=== PATIENT | male | born 1975 | race Caucasian/White ===

== ENCOUNTER 2016-08-15 14:16 | Emergency (ER) | payer MEDICAID ==
[~2016-08-15] VITALS: Wt 72.0 kg
[~2016-08-15 14:16] MED LIST: BACTDS PO; CEPH500C PO; IBUP-1542 PO; PRED50 PO
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
[2016-08-15] MEDS ORDERED: BACTDS PO (16:20)
[2016-08-15] MEDS ORDERED: CEPH-443 PO (16:20)
[2016-08-15] MEDS ORDERED: TRIMETHOPRIM/SULFAMETHOX (DS) TAB PO ONE (16:30)
[2016-08-15] MEDS ORDERED: CEPHALEXIN 500 MG CAP PO ONE (16:30)
== END 2016-08-15 16:47 | disposition home or self-care (01) ==
LOC: FTE 14:16
DX: S89.91XA Unspecified injury of right lower leg, initial encounter (principal); L03.115 Cellulitis of right lower limb; W22.8XXA Striking against or struck by other objects, initial encounter; Y92.9 Unspecified place or not applicable
CPT/HCPCS: Z7502; Z7610; 99284

== ENCOUNTER 2016-11-14 20:07 | Emergency (ER) | payer MEDICAID ==
[~2016-11-14] VITALS: Ht 172.7 cm; Wt 71.0 kg
[~2016-11-14 20:07] MED LIST changes: +CEPH-443 PO
[2016-11-14 20:18] VITALS: Ht 172.7 cm; Wt 71.0 kg
[2016-11-14] MEDS ORDERED: ONDA4TAB14 PO (21:28)
--- NOTE | 2016-11-14 23:51 | ERD ---
ER Documentation Chief Complaint Date/Time DATE: 11/14/16 TIME: 23:44 Chief Complaint diarrhea and vomiting x 3days HPI 41-year-old male complaining of vomiting and diarrhea 3 days. He had one episode of vomiting today and 5 episodes of diarrhea today. Last episode of diarrhea is about an hour ago. Both vomitus and diarrhea are nonbloody. Patient reports abdominal pain after eating, better after diarrhea. Patient is currently homeless, sleeping outside. Last time he bathes was 3 days ago. He does not have access of running water to keep his hands clean. Denies fever or chills. Denies abdominal pain at this time. Denies cough or runny nose. Denies shortness of breath. ROS All systems reviewed and are negative except as per history of present illness. Medications Home Meds Active Scripts Ondansetron (Ondansetron Odt) 4 Mg Tab.rapdis, 4 MG PO Q6H Y for NAUSEA AND/OR VOMITING, #10 TAB Prov:PAULO LÓPEZ. [employer] 11/14/16 Cephalexin* (Keflex*) 500 Mg Capsule, 500 MG PO QID for 10 Days, CAP Prov:APOLINAR MATOS DO 08/15/16 Sulfamethoxazole-Trimethoprim* (Bactrim* DS) 800-160 Mg Tab, 1 TAB PO BID for 10 Days, TAB Prov:APOLINAR MATOS DO 08/15/16 Prednisone (Prednisone) 50 Mg Tab, 50 MG PO DAILY, #5 TAB Prov:SHANTHI RICHARDS PA-C 10/18/15 Ibuprofen* (Ibuprofen*) 600 Mg Tablet, 600 MG PO Q6, #30 TAB Prov:SHANTHI RICHARDS PA-C 10/18/15 Cephalexin* (Cephalexin*) 500 Mg Capsule, 500 MG PO Q6, #28 CAP Prov:SHANTHI RICHARDS PA-C 10/18/15 Sulfamethoxazole-Trimethoprim* (Bactrim* DS) 800-160 Mg Tab, 1 TAB PO BID, #14 TAB Prov:SHANTHI RICHARDS PA-C 10/18/15 Allergies Allergies: Coded Allergies: No Known Allergy (Unverified , 11/14/16) PMhx/Soc Medical and Surgical Hx: pt denies Medical Hx History of Surgery: Yes (l. wrist) Hx Alcohol Use: No Hx Substance Use: Yes (weed, crystal meth ) Hx Tobacco Use: Yes Smoking Status: Current every day smoker Physical Exam Vitals Vital Signs Date Time Temp Pulse Resp B/P Pulse Ox O2 Delivery O2 Flow Rate FiO2 11/14/16 20:18 98.5 98 20 133/80 99 Physical Exam General: Well-developed, well-nourished, conscious and coherent, in no distress Skin: Warm and dry without rash, good texture and turgor Head: Normocephalic without evidence of trauma Eyes: Sclera and conjunctivae normal; pupils equal, round, and reactive to light; extraocular movements are intact Chest: Normal AP diameter. Good expansion without retractions. Nontender. Lungs are clear to auscultate bilaterally with good tidal volume Heart: Regular rate and rhythm. No murmur, rub, or gallops heard Abdomen: Soft and nontender without masses, guarding, or rebound. Bowel sounds are active. No hepatosplenomegaly Back: Without spinal or CVA tenderness Extremities: Full range of motion. Good strength bilaterally. No clubbing, cyanosis, or edema. Peripheral pulses are intact. Sensation intact Neuro: Alert and oriented 4, GCS 15. Cranial nerves grossly intact. Motor and sensory exams nonfocal. Moves all extremities. Speech clear. Gait normal Procedures/MDM Patient tolerated p.o. fluid challenge in the ED without vomiting. Patient is afebrile, does not have any abdominal tenderness on palpation. I doubt acute appendicitis, cholecystitis or other acute abdomen. Patient's symptoms is consistent with either viral gastroenteritis or foodborne illness. Patient does not have any active vomiting, is able to maintain by mouth fluid intake. Patient appears well, stable for discharge and outpatient management. Medical decision making shared with patient and family. Education provided to patient and family. Patient and family expressed understanding of the plan. Medications on discharge: Zofran. Follow-up: Primary care provider in 2-3 days or return to ED if worse. Departure Diagnosis: Primary Impression: Gastroenteritis Condition: Good Patient Instructions: Self-Care for Vomiting and Diarrhea Referrals: COMM[facility]ITY CLINICS YOU HAVE RECEIVED A MEDICAL SCREENING EXAM AND THE RESULTS INDICATE THAT YOU DO NOT HAVE A CONDITION THAT REQUIRES URGENT TREATMENT IN THE EMERGENCY DEPARTMENT. FURTHER EVALUATION AND TREATMENT OF YOUR CONDITION CAN WAIT UNTIL YOU ARE SEEN IN YOUR DOCTORS OFFICE WITHIN THE NEXT 1-2 DAYS. IT IS YOUR RESPONSIBILITY TO MAKE AN APPOINTMENT FOR FOLOW-UP CARE. IF YOU HAVE A PRIMARY DOCTOR --you should call your primary doctor and schedule an appointment IF YOU DO NOT HAVE A PRIMARY DOCTOR YOU CAN CALL OUR PHYSICIAN REFERRAL HOTLINE AT IF YOU CAN NOT AFFORD TO SEE A PHYSICIAN YOU CAN CHOSE FROM THE FOLLOWING [facility] [address] [facility] [address] [facility] [address] [facility] [address] [facility] [facility] [address] [facility] [facility] [address] Additional Instructions: Call your primary care doctor TOMORROW for an appointment during the next 2-3 days.See the doctor sooner or return here if your condition worsens before your appointment time. PAULO LÓPEZ NP November 14, 2016 23:51
== END 2016-11-14 22:25 | disposition left against medical advice (07) ==
LOC: FTE 20:07
DX: K52.9 Noninfective gastroenteritis and colitis, unspecified (principal); F17.210 Nicotine dependence, cigarettes, uncomplicated
CPT/HCPCS: 99283

== ENCOUNTER 2018-09-18 11:00 | Inpatient (IN) | payer OTHER ==
[~2018-09-18] VITALS: Ht 165.1 cm; Wt 73.0 kg
[2018-09-18] VITALS (30 sets, daily range): BP systolic 93–170; BP diastolic 43–109; PULSE 63–121; RESP 17–25
[2018-09-18] MEDS: SOD CHLORIDE 0.9% 1,000 ML IV SCH
[~2018-09-18 11:00] MED LIST changes: +ONDA4TAB14 PO
[2018-09-18] MEDS ORDERED: VANCOMYCIN 1 GM (PMX) 250 ML IVPB STA (11:18)
[2018-09-18] MEDS ORDERED: FENTAnyl 50 MCG/ML VIAL IV STA (11:18)
[2018-09-18] MEDS ORDERED: SODIUM CHLORIDE 0.9% 500 ML BAG IV* STA (11:18)
[2018-09-18] MEDS ORDERED: MIDAZOLAM 1 MG/ML 2 ML INJ IV STA (11:18)
[2018-09-18] MEDS ORDERED: SODIUM CHLORIDE 0.9% 1L BAG IV* STA (11:18)
[2018-09-18] MEDS ORDERED: CEFEPIME 2GM/50 ML (PMX) 50 ML IVPB STA (11:18)
[2018-09-18] MEDS ORDERED: FENTAnyl (DRIP) 1000 mcg/100mL 100 ML IV ONE (11:30)
[2018-09-18] MEDS ORDERED: MIDAZOLAM (DRIP) 50 mg/50 mL 50 ML IV ONE (11:30)
[2018-09-18] MEDS ORDERED: NORepinephrine 8MG/250 ML (PMX 250 ML IV ONE (11:30)
[2018-09-18] MEDS ORDERED: MIDAZOLAM 1 MG/ML 2 ML INJ IV ONE (12:00)
[2018-09-18] MEDS ORDERED: FENTAnyl 50 MCG/ML VIAL IV ONE (12:00)
[2018-09-18] MEDS: VECURONIUM 100 MG in DEXTROSE 5% 100 ML IV ONE ×3 (12:09)
[2018-09-18] MEDS ORDERED: PROPOFOL 100 ML IV STA (12:10)
[2018-09-18] MEDS ORDERED: PROPOFOL 100 ML ONE (12:11)
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
[2018-09-18] MEDS ORDERED: ONDANSETRON 4 MG INJ IV PRN (15:00)
[2018-09-18] MEDS: PIPER-TAZO 3.375 GM IV (PMX) 100 ML IVPB SCH (15:49)
[2018-09-18] MEDS ORDERED: ALBUTEROL 0.5% (NEB) 2.5 MG/0.5 ML AMP ONE (15:51)
[2018-09-18] MEDS ORDERED: ALBUTEROL 0.083% (NEB) 2.5 MG/3 ML AMP HHN STA ×2 (16:03→17:02)
[2018-09-18] MEDS ORDERED: METHYLPREDNISOLONE 40 MG INJ IV ONE (16:30)
[2018-09-18] MEDS ORDERED: METHYLPREDNISOLONE 125 MG INJ IV ONE (16:30)
[2018-09-18] MEDS ORDERED: ACETAMINOPHEN 650 MG SUPP PR PRN (17:30)
[2018-09-18] MEDS ORDERED: ACETAMINOPHEN 650MG/20.3ML CUP PO PRN (17:30)
[2018-09-18] MEDS ORDERED: MEPERIDINE 25 MG INJ IV PRN ×2 (17:30)
[2018-09-18] MEDS ORDERED: OCULAR LUBRICANT 3.5 GM OPH OINT BOTH EYES SCH (18:00)
[2018-09-19] VITALS (81 sets, daily range): BP systolic 84–164; BP diastolic 53–122; PULSE 35–83; RESP 18–23
[2018-09-19] MEDS: PROPOFOL 100 ML IV SCH (00:30)
[2018-09-19] MEDS: PIPER-TAZO 3.375 GM IV (PMX) 100 ML IVPB SCH ×4 (00:39→21:32)
[2018-09-19] MEDS ORDERED: INSULIN HUMAN REGULAR 100 UNIT in SOD CHLORIDE 0.9% 99 ML IV SCH (00:45)
[2018-09-19] MEDS: ACCU-CHEK XX SCH ×11 (01:00→22:00)
[2018-09-19] MEDS: OCULAR LUBRICANT 3.5 GM OPH OINT BOTH EYES SCH ×4 (02:21→23:35)
[2018-09-19] MEDS: ARTIFICIAL TEARS 15 ML OPH BOTH EYES SCH ×6 (02:21→23:35)
[2018-09-19] MEDS ORDERED: VECURONIUM 100 MG in DEXTROSE 5% 100 ML IV SCH (03:00)
[2018-09-19] MEDS: SOD CHLORIDE 0.9% 1,000 ML IV SCH ×2 (03:30→15:37)
[2018-09-19] MEDS: MIDAZOLAM (DRIP) 50 mg/50 mL 50 ML IV SCH ×2 (04:34→15:34)
[2018-09-19] MEDS: PANTOPRAZOLE 40 MG INJ IV SCH (05:28)
--- NOTE | 2018-09-19 09:20 | PN ---
Date/Time of Note Date/Time of Note DATE: 09/19/18 TIME: 09:18 Assessment/Plan VTE Prophylaxis Risk score (from Ns)>0 risk: 6 SCD applied (from Ns): Yes Pharmacological prophylaxis: heparin Lines/Catheters IV Catheter Type (from Nrsg): Central Line Central line still needed: Yes Urinary Cath still in place: Yes Reason Cath still needed: other (indicate) Assessment/Plan Hospital Course Subjective: remains intubated and sedated on hypothermia protocol family members have been contacted and are enroute to see patient Objective : GENERAL: Intubated and comfortably sedated, cooling blanket HEENT: JENNIFER, Intubated, Vent settings noted , LUNGS: diffusely diminished HEART: S1, S2. No murmur, gallops or rubs. ABDOMEN: Soft, non distended, Normoactive bowel sounds. GENITOURINARY: Normal male external genitalia, Pearl to bedside drainage EXTREMITIES: no edema, no movt noted at this time NEUROLOGIC: The patient is currently obtunded SKIN: Otherwise, unremarkable. assessment and plan: 43-year-old male who was found unresponsive on the street brought in by EMS as a Ti Feng currently managed as follows: 1. Acute toxic metabolic encephalopathy rule out. Ischemic brain disease 2. Accidental overdose 3. Acute respiratory failure secondary to #2 4. Multi-substance abuse 5. Systemic inflammatory response syndrome secondary to #1 6. Status post cardiac arrest with return of spontaneous circulation after resuscitation 7. Severe rhabdomyolysis 8. Cardiogenic shock with lactic acidosis 9. High probability of aspiration pneumonia Plan: Complete hypothermia protocol and proceed to rewarming as indicated Continue empiric antibiotics Continue gentle hydration and tracking of creatinine kinase levels Overall prognosis is grim/guarded Further interventions per clinical course Prophylaxis: heparin/Protonix Critical care time greater than 40 minutes Result Diagram: 09/19/18 0400 09/19/18 0400 Results 24hrs Laboratory Tests Test 09/18/18 11:05 09/18/18 11:18 09/18/18 12:30 09/18/18 13:48 White Blood 14.2 H Count Red Blood Count 5.65 Hemoglobin 13.0 L Hematocrit 43.6 Mean 77.2 L Corpuscular Volume Mean 23.0 L Corpuscular Hemoglobin Mean 29.8 L Corpuscular Hemoglobin Conc ent Red Cell 13.4 Distribution Width Platelet Count 302 Mean Platelet 11.7 H Volume Immature 0.500 H Granulocytes % Neutrophils % 44.6 Lymphocytes % 39.4 Monocytes % 7.1 Eosinophils % 7.5 H Basophils % 0.9 Nucleated Red 0.0 Blood Cells % Immature 0.070 H Granulocytes # Neutrophils # 6.3 Lymphocytes # 5.6 H Monocytes # 1.0 H Eosinophils # 1.1 H Basophils # 0.1 Nucleated Red 0.0 Blood Cells # Prothrombin 12.9 Time Prothrombin 1.0 Time Ratio INR 0.96 International Normalized Rati o Activated 29.8 Partial Thrombo plast Time Sodium Level 141 Potassium Level 3.9 Chloride Level 101 Carbon Dioxide 17 L Level Anion Gap 23 H Blood Urea 14 Nitrogen Creatinine 1.12 Est Glomerular > 60 Filtrat Rate mL/min Glucose Level 292 H Calcium Level 8.8 Phosphorus 9.1 H Level Magnesium Level 2.5 Total Bilirubin 0.3 Direct 0.00 Bilirubin Indirect 0.3 Bilirubin Aspartate Amino 77 H Transf (AST/SGO T) Alanine 32 Aminotransferas e (ALT/SGPT) Alkaline 67 Phosphatase Troponin I 0.025 Total Protein 7.2 Albumin 4.1 Globulin 3.10 Albumin/Globuli 1.32 n Ratio Lipase 52 Ethyl Alcohol < 10.0 H Level Blood Gas Blood Specimen arterial Source Arterial Blood 09/18/2018 1:00 Date Drawn :15 PM Arterial Blood 7.107 *L pH (Temp corrected ) Arterial Blood 96.4 *H pCO2 (Temp correct) Arterial Blood 62.8 L pO2 (Temp corrected ) Arterial Blood 29.7 H HCO3 Arterial Blood -2.6 Base Excess Arterial Blood 83.2 L Oxygen Saturati on George Test ACCEPTAB Arterial Blood Right Radial Gas Puncture Site Arterial 0.3 Blood Carboxyhe moglobin Arterial Blood 0.6 Methemoglobin Blood Gas A-a 553.8 H O2 Differential Oxyhemoglobin 82.5 L Percent Blood Gas 37.0 Temperature Blood Gas 14.0 Respiration Rate Blood Gas 20 Actual Respiration Rat e Blood Gas VENT - AC Modality FiO2 100.0 Blood Gas Tidal 500.0 Volume Blood Gas Low 5.0 PEEP Setting Blood Gas DR. PATRICIO Critical Value Read Back Blood Gas RT Notified Whom Blood Gas 09/18/2018 1:19 Notified Time :03 PM Urine Color YELLOW Urine Clarity SLIGHTLY CLOUD Y A Urine pH 6.0 Urine Specific 1.013 [place] Urine Ketones NEGATIVE Urine Nitrite NEGATIVE Urine Bilirubin NEGATIVE Urine NEGATIVE Urobilinogen Urine Leukocyte NEGATIVE Esterase Urine 8 H Microscopic RBC Urine 5 Microscopic WBC Urine Bacteria FEW A Urine Mucus FEW A Urine 2+ H Hemoglobin Urine Glucose 3+ H Urine Total 2+ H Protein Urine Opiates Positive Screen Urine Negative Barbiturates Urine POSITIVE Amphetamines Screen Urine Positive Benzodiazepines Screen Urine Cocaine Negative Screen Urine Positive Cannabinoids Bedside Glucose 89 Test 09/18/18 13:51 09/18/18 15:05 09/18/18 16:17 09/18/18 16:20 Lactic Acid 1.3 1.5 Level Bedside Glucose 79 105 Sodium Level 143 Potassium Level 4.8 Chloride Level 104 Carbon Dioxide 29 # Level Anion Gap 10 # Blood Urea 16 Nitrogen Creatinine 0.79 Est Glomerular > 60 Filtrat Rate mL/min Glucose Level 113 # Calcium Level 8.1 L Creatine Kinase 1102 H Creatine Kinase 1.2 Index Creatinine 13.00 H Kinase MB (Mass) Troponin I 0.049 Test 09/18/18 17:15 09/18/18 18:03 09/18/18 19:03 09/18/18 20:22 Blood Gas Blood arterial Specimen Source Arterial Blood 09/18/2018 6:00: Date Drawn 41 PM Arterial Blood 7.158 *L pH (Temp corrected ) Arterial Blood 84.6 *H pCO2 (Temp correct) Arterial Blood 32.7 *L pO2 (Temp corrected ) Arterial Blood 31.0 H HCO3 Arterial Blood -1.9 Base Excess Arterial Blood 68.2 L Oxygen Saturati on George Test ACCEPTAB Arterial Blood Right Radial Gas Puncture Site Arterial 0 Blood Carboxyhe moglobin Arterial Blood 0.3 Methemoglobin Blood Gas A-a 604.9 H O2 Differential Oxyhemoglobin 68.0 L Percent Blood Gas 33.1 Temperature Blood Gas 22.0 Respiration Rate Blood Gas 26 Actual Respiration Rat e Blood Gas VENT - AC Modality FiO2 100.0 Blood Gas Tidal 550.0 Volume Blood Gas Low 5.0 PEEP Setting Blood Gas Critical Value Read Back Blood Gas RT Notified Whom Blood Gas 09/18/2018 6:06: Notified Time 48 PM Lactic Acid 1.2 Level Bedside Glucose 91 88 Test 09/18/18 22:54 09/18/18 23:15 09/18/18 23:46 09/19/18 02:00 Sodium Level 143 Potassium Level 3.8 Chloride Level 104 Carbon Dioxide 27 Level Anion Gap 12 Blood Urea 15 Nitrogen Creatinine 0.62 Est Glomerular > 60 Filtrat Rate mL/min Glucose Level 145 Calcium Level 8.5 Creatine Kinase 1336 H Creatine Kinase 1.7 Index Creatinine 22.10 H Kinase MB (Mass) Troponin I 0.028 Blood Gas Blood Specimen arterial Source Arterial Blood 09/18/2018 11:0 Date Drawn 5:59 PM Arterial Blood 7.311 L pH (Temp corrected ) Arterial Blood 46.2 H pCO2 (Temp correct) Arterial Blood 541.6 H pO2 (Temp corrected ) Arterial Blood 24.0 HCO3 Arterial Blood -4.0 L Base Excess Arterial Blood 99.7 H Oxygen Saturati on George Test ACCEPTAB Arterial Blood Right Radial Gas Puncture Site Arterial 0.3 Blood Carboxyhe moglobin Arterial Blood 0.4 Methemoglobin Blood Gas A-a 134.8 H O2 Differential Oxyhemoglobin 99.0 Percent Blood Gas 32.9 Temperature Blood Gas 22.0 Respiration Rate Blood Gas 22 Actual Respiration Rat e Blood Gas VENT - AC Modality FiO2 100.0 Blood Gas Tidal 550.0 Volume Blood Gas Low 5.0 PEEP Setting Blood Gas JULIA, B Critical Value Read Back Blood Gas Notified Whom Blood Gas 09/18/2018 11:1 Notified Time 2:01 PM Bedside Glucose 114 Prothrombin 12.8 Time Prothrombin 1.0 Time Ratio INR 0.95 International Normalized Rati o Activated 31.7 Partial Thrombo plast Time Fibrinogen 383.0 Amylase Level 52 Lipase 12 L Test 09/19/18 02:14 09/19/18 03:03 09/19/18 04:00 09/19/18 05:15 Bedside Glucose 127 113 White Blood 15.4 H Count Red Blood Count 5.93 Hemoglobin 13.4 L Hematocrit 44.1 Mean 74.4 L Corpuscular Volume Mean 22.6 L Corpuscular Hemoglobin Mean 30.4 L Corpuscular Hemoglobin Conc ent Red Cell 13.9 Distribution Width Platelet Count 279 Mean Platelet 10.8 H Volume Immature 0.300 Granulocytes % Neutrophils % 92.4 H Lymphocytes % 4.3 L Monocytes % 2.9 Eosinophils % 0.0 Basophils % 0.1 Nucleated Red 0.0 Blood Cells % Immature 0.040 H Granulocytes # Neutrophils # 14.2 H Lymphocytes # 0.7 L Monocytes # 0.5 Eosinophils # 0.0 Basophils # 0.0 Nucleated Red 0.0 Blood Cells # Sodium Level 144 Potassium Level 4.1 Chloride Level 107 Carbon Dioxide 25 Level Anion Gap 12 Blood Urea 14 Nitrogen Creatinine 0.61 Est Glomerular > 60 Filtrat Rate mL/min Glucose Level 145 Lactic Acid 3.8 *H Level Calcium Level 8.4 Phosphorus 3.5 # Level Magnesium Level 2.3 Troponin I 0.014 Blood Gas Blood Specimen arterial Source Arterial Blood 09/19/2018 4:48 Date Drawn :01 AM Arterial Blood 7.360 pH (Temp corrected ) Arterial Blood 42.9 pCO2 (Temp correct) Arterial Blood 71.0 L pO2 (Temp corrected ) Arterial Blood 24.9 HCO3 Arterial Blood -2.2 Base Excess Arterial Blood 97.1 Oxygen Saturati on George Test ACCEPTAB Arterial Blood Right Radial Gas Puncture Site Arterial 0.3 Blood Carboxyhe moglobin Arterial Blood 0.2 Methemoglobin Blood Gas A-a 169.0 H O2 Differential Oxyhemoglobin 96.6 Percent Blood Gas 32.5 Temperature Blood Gas 22.0 Respiration Rate Blood Gas 22 Actual Respiration Rat e Blood Gas VENT - AC Modality FiO2 40.0 Blood Gas Tidal 550.0 Volume Blood Gas Low 5.0 PEEP Setting Blood Gas 27.0 Inspiratory Pressure Blood Gas Colin HODGE RN Critical Value Read Back Blood Gas MM Notified Whom Blood Gas 09/19/2018 4:53 Notified Time :58 AM Test 09/19/18 06:04 Bedside Glucose 119 Exam/Review of Systems Exam Vitals Vital Signs Date Temp Pulse Resp B/P (MAP) Pulse Ox O2 O2 Flow FiO2 Time Delivery Rate 09/19/18 43 08:00 09/19/18 91.9 22 150/95 100 08:00 (113) 09/19/18 40 05:11 09/18/18 Mechanical 14:00 Ventilator Intake and Output 09/18/18 09/18/18 09/19/18 1515:00 23:00 07:00 IntakeIntake Total 2730 ml 985.934 ml OutputOutput Total 1500 ml 1849 ml BalanceBalance 2730 ml -1500 ml -863.066 ml Results Results 24hrs Laboratory Tests Test 09/18/18 11:05 09/18/18 11:18 09/18/18 12:30 09/18/18 13:48 White Blood 14.2 H Count Red Blood Count 5.65 Hemoglobin 13.0 L Hematocrit 43.6 Mean 77.2 L Corpuscular Volume Mean 23.0 L Corpuscular Hemoglobin Mean 29.8 L Corpuscular Hemoglobin Conc ent Red Cell 13.4 Distribution Width Platelet Count 302 Mean Platelet 11.7 H Volume Immature 0.500 H Granulocytes % Neutrophils % 44.6 Lymphocytes % 39.4 Monocytes % 7.1 Eosinophils % 7.5 H Basophils % 0.9 Nucleated Red 0.0 Blood Cells % Immature 0.070 H Granulocytes # Neutrophils # 6.3 Lymphocytes # 5.6 H Monocytes # 1.0 H Eosinophils # 1.1 H Basophils # 0.1 Nucleated Red 0.0 Blood Cells # Prothrombin 12.9 Time Prothrombin 1.0 Time Ratio INR 0.96 International Normalized Rati o Activated 29.8 Partial Thrombo plast Time Sodium Level 141 Potassium Level 3.9 Chloride Level 101 Carbon Dioxide 17 L Level Anion Gap 23 H Blood Urea 14 Nitrogen Creatinine 1.12 Est Glomerular > 60 Filtrat Rate mL/min Glucose Level 292 H Calcium Level 8.8 Phosphorus 9.1 H Level Magnesium Level 2.5 Total Bilirubin 0.3 Direct 0.00 Bilirubin Indirect 0.3 Bilirubin Aspartate Amino 77 H Transf (AST/SGO T) Alanine 32 Aminotransferas e (ALT/SGPT) Alkaline 67 Phosphatase Troponin I 0.025 Total Protein 7.2 Albumin 4.1 Globulin 3.10 Albumin/Globuli 1.32 n Ratio Lipase 52 Ethyl Alcohol < 10.0 H Level Blood Gas Blood Specimen arterial Source Arterial Blood 09/18/2018 1:00 Date Drawn :15 PM Arterial Blood 7.107 *L pH (Temp corrected ) Arterial Blood 96.4 *H pCO2 (Temp correct) Arterial Blood 62.8 L pO2 (Temp corrected ) Arterial Blood 29.7 H HCO3 Arterial Blood -2.6 Base Excess Arterial Blood 83.2 L Oxygen Saturati on George Test ACCEPTAB Arterial Blood Right Radial Gas Puncture Site Arterial 0.3 Blood Carboxyhe moglobin Arterial Blood 0.6 Methemoglobin Blood Gas A-a 553.8 H O2 Differential Oxyhemoglobin 82.5 L Percent Blood Gas 37.0 Temperature Blood Gas 14.0 Respiration Rate Blood Gas 20 Actual Respiration Rat e Blood Gas VENT - AC Modality FiO2 100.0 Blood Gas Tidal 500.0 Volume Blood Gas Low 5.0 PEEP Setting Blood Gas DR. PATRICIO Critical Value Read Back Blood Gas RT Notified Whom Blood Gas 09/18/2018 1:19 Notified Time :03 PM Urine Color YELLOW Urine Clarity SLIGHTLY CLOUD Y A Urine pH 6.0 Urine Specific 1.013 [place] Urine Ketones NEGATIVE Urine Nitrite NEGATIVE Urine Bilirubin NEGATIVE Urine NEGATIVE Urobilinogen Urine Leukocyte NEGATIVE Esterase Urine 8 H Microscopic RBC Urine 5 Microscopic WBC Urine Bacteria FEW A Urine Mucus FEW A Urine 2+ H Hemoglobin Urine Glucose 3+ H Urine Total 2+ H Protein Urine Opiates Positive Screen Urine Negative Barbiturates Urine POSITIVE Amphetamines Screen Urine Positive Benzodiazepines Screen Urine Cocaine Negative Screen Urine Positive Cannabinoids Bedside Glucose 89 Test 09/18/18 13:51 09/18/18 15:05 09/18/18 16:17 09/18/18 16:20 Lactic Acid 1.3 1.5 Level Bedside Glucose 79 105 Sodium Level 143 Potassium Level 4.8 Chloride Level 104 Carbon Dioxide 29 # Level Anion Gap 10 # Blood Urea 16 Nitrogen Creatinine 0.79 Est Glomerular > 60 Filtrat Rate mL/min Glucose Level 113 # Calcium Level 8.1 L Creatine Kinase 1102 H Creatine Kinase 1.2 Index Creatinine 13.00 H Kinase MB (Mass) Troponin I 0.049 Test 09/18/18 17:15 09/18/18 18:03 09/18/18 19:03 09/18/18 20:22 Blood Gas Blood arterial Specimen Source Arterial Blood 09/18/2018 6:00: Date Drawn 41 PM Arterial Blood 7.158 *L pH (Temp corrected ) Arterial Blood 84.6 *H pCO2 (Temp correct) Arterial Blood 32.7 *L pO2 (Temp corrected ) Arterial Blood 31.0 H HCO3 Arterial Blood -1.9 Base Excess Arterial Blood 68.2 L Oxygen Saturati on [place] Test ACCEPTAB Arterial Blood Right Radial Gas Puncture Site Arterial 0 Blood Carboxyhe moglobin Arterial Blood 0.3 Methemoglobin Blood Gas A-a 604.9 H O2 Differential Oxyhemoglobin 68.0 L Percent Blood Gas 33.1 Temperature Blood Gas 22.0 Respiration Rate Blood Gas 26 Actual Respiration Rat e Blood Gas VENT - AC Modality FiO2 100.0 Blood Gas Tidal 550.0 Volume Blood Gas Low 5.0 PEEP Setting Blood Gas Critical Value Read Back Blood Gas RT Notified Whom Blood Gas 09/18/2018 6:06: Notified Time 48 PM Lactic Acid 1.2 Level Bedside Glucose 91 88 Test 09/18/18 22:54 09/18/18 23:15 3/28/19 23:46 09/19/18 02:00 Sodium Level 143 Potassium Level 3.8 Chloride Level 104 Carbon Dioxide 27 Level Anion Gap 12 Blood Urea 15 Nitrogen Creatinine 0.62 Est Glomerular > 60 Filtrat Rate mL/min Glucose Level 145 Calcium Level 8.5 Creatine Kinase 1336 H Creatine Kinase 1.7 Index Creatinine 22.10 H Kinase MB (Mass) Troponin I 0.028 Blood Gas Blood Specimen arterial Source Arterial Blood 09/18/2018 11:0 Date Drawn 5:59 PM Arterial Blood 7.311 L pH (Temp corrected ) Arterial Blood 46.2 H pCO2 (Temp correct) Arterial Blood 541.6 H pO2 (Temp corrected ) Arterial Blood 24.0 HCO3 Arterial Blood -4.0 L Base Excess Arterial Blood 99.7 H Oxygen Saturati on George Test ACCEPTAB Arterial Blood Right Radial Gas Puncture Site Arterial 0.3 Blood Carboxyhe moglobin Arterial Blood 0.4 Methemoglobin Blood Gas A-a 134.8 H O2 Differential Oxyhemoglobin 99.0 Percent Blood Gas 32.9 Temperature Blood Gas 22.0 Respiration Rate Blood Gas 22 Actual Respiration Rat e Blood Gas VENT - AC Modality FiO2 100.0 Blood Gas Tidal 550.0 Volume Blood Gas Low 5.0 PEEP Setting Blood Gas JULIA, B Critical Value Read Back Blood Gas Notified Whom Blood Gas 09/18/2018 11:1 Notified Time 2:01 PM Bedside Glucose 114 Prothrombin 12.8 Time Prothrombin 1.0 Time Ratio INR 0.95 International Normalized Rati o Activated 31.7 Partial Thrombo plast Time Fibrinogen 383.0 Amylase Level 52 Lipase 12 L Test 09/19/18 02:14 09/19/18 03:03 09/19/18 04:00 09/19/18 05:15 Bedside Glucose 127 113 White Blood 15.4 H Count Red Blood Count 5.93 Hemoglobin 13.4 L Hematocrit 44.1 Mean 74.4 L Corpuscular Volume Mean 22.6 L Corpuscular Hemoglobin Mean 30.4 L Corpuscular Hemoglobin Conc ent Red Cell 13.9 Distribution Width Platelet Count 279 Mean Platelet 10.8 H Volume Immature 0.300 Granulocytes % Neutrophils % 92.4 H Lymphocytes % 4.3 L Monocytes % 2.9 Eosinophils % 0.0 Basophils % 0.1 Nucleated Red 0.0 Blood Cells % Immature 0.040 H Granulocytes # Neutrophils # 14.2 H Lymphocytes # 0.7 L Monocytes # 0.5 Eosinophils # 0.0 Basophils # 0.0 Nucleated Red 0.0 Blood Cells # Sodium Level 144 Potassium Level 4.1 Chloride Level 107 Carbon Dioxide 25 Level Anion Gap 12 Blood Urea 14 Nitrogen Creatinine 0.61 Est Glomerular > 60 Filtrat Rate mL/min Glucose Level 145 Lactic Acid 3.8 *H Level Calcium Level 8.4 Phosphorus 3.5 # Level Magnesium Level 2.3 Troponin I 0.014 Blood Gas Blood Specimen arterial Source Arterial Blood 09/19/2018 4:48 Date Drawn :01 AM Arterial Blood 7.360 pH (Temp corrected ) Arterial Blood 42.9 pCO2 (Temp correct) Arterial Blood 71.0 L pO2 (Temp corrected ) Arterial Blood 24.9 HCO3 Arterial Blood -2.2 Base Excess Arterial Blood 97.1 Oxygen Saturati on George Test ACCEPTAB Arterial Blood Right Radial Gas Puncture Site Arterial 0.3 Blood Carboxyhe moglobin Arterial Blood 0.2 Methemoglobin Blood Gas A-a 169.0 H O2 Differential Oxyhemoglobin 96.6 Percent Blood Gas 32.5 Temperature Blood Gas 22.0 Respiration Rate Blood Gas 22 Actual Respiration Rat e Blood Gas VENT - AC Modality FiO2 40.0 Blood Gas Tidal 550.0 Volume Blood Gas Low 5.0 PEEP Setting Blood Gas 27.0 Inspiratory Pressure Blood Gas Colin HODGE RN Critical Value Read Back Blood Gas MM Notified Whom Blood Gas 09/19/2018 4:53 Notified Time :58 AM Test 09/19/18 06:04 Bedside Glucose 119 Medications Medication Current Medications Norepinephrine 250 ml @ 7.5 mls/hr PER PROTOCOL ONCE IV ; Start 09/18/18 at 11:30; Stop 09/19/18 at 20:49 Fentanyl 100 ml @ 2.5 mls/hr PER PROTOCOL ONCE IV Last administered on 09/18/18at 12:11; Admin Dose 3 MLS/HR; Start 09/18/18 at 11:30; Stop 09/20/18 at 03:29 Sodium Chloride 1,000 ml @ 80 mls/hr [id number] IV Last administered on 09/18/18at 00:00; Admin Dose 80 MLS/HR; Start 09/18/18 at 15:00 Ondansetron HCl (Zofran Inj) 4 mg Q6H PRN IV NAUSEA AND/OR VOMITING; Start 09/18/18 at 15:00 Pantoprazole (Protonix Iv) 40 mg DAILY@06 IV Last administered on 09/19/18at 05 :28; Admin Dose 40 MG; Start 09/19/18 at 06:00 Piperacillin Sod/ Tazobactam Sod 100 ml @ 200 mls/hr Q8 IVPB Last administered on 09/19/18at 05:28; Admin Dose 200 MLS/HR; Start 09/18/18 at 14:44 Acetaminophen (Tylenol Supp) 650 mg Q4H PRN GA TEMP > 37C Last administered on 09/18/18at 17:43; Admin Dose 650 MG; Start 09/18/18 at 17:30 Acetaminophen (Tylenol Liquid) 650 mg Q4H PRN PO TEMP > 37C; Start 09/18/18 at 17:30 Acetaminophen (Tylenol Supp) 500 mg Q6H GA ; Start 09/19/18 at 17:30 Acetaminophen (Tylenol Liquid) 500 mg Q6H PO ; Start 09/19/18 at 17:30 Meperidine HCl (Demerol) 12.5 mg Q4H PRN IV POST OPERATIVE SHIVERING; Start 09/18/18 at 17:30 Meperidine HCl (Demerol) 25 mg Q4H PRN IV POST OPERATIVE SHIVERING Last administered on 09/18/18at 18:26; Admin Dose 25 MG; Start 09/18/18 at 17:30 Eye Lubricant (Artificial Tears Oph) 2 drop Q6 BOTH EYES Last administered on 09/19/18at 05:27; Admin Dose 2 DROP; Start 09/18/18 at 18:00 Propofol 100 ml @ 2.181 mls/ hr TITRATE IV Last administered on 09/19/18at 00:30; Admin Dose 8.724 MLS/HR; Start 09/18/18 at 23:30 Insulin Human Regular 100 unit/ Sodium Chloride 100 ml @ 0 mls/hr PER PROTOCOL IV ; Start 09/19/18 at 00:45 Miscellaneous Information (* Miscellaneous Pharmacy Order) Treatment of Hypoglycemia: 1.BG 51... Per protocol XX ; Start 09/19/18 at 00:00 Dextrose (D50w Syringe) 25 ml Q15M PRN IV .DECREASED GLUCOSE; Start 09/19/18 at 00:00 Dextrose (D50w Syringe) 50 ml Q15M PRN IV .DECREASED GLUCOSE; Start 09/19/18 at 00:00 Eye Lubricant (Akwa Oint) 1 applic Q6 BOTH EYES Last administered on 09/19/18at 02:21; Admin Dose 1 APPLIC; Start 09/19/18 at 00:43 Vecuronium [place] 100 mg/ Dextrose 100 ml @ 0 mls/hr TITRATE IV Last a dministered on 09/19/18at 03:00; Admin Dose 3.6 MLS/HR; Start 09/19/18 at 03:00 Midazolam HCl 50 ml @ 1 mls/hr TITRATE IV Last administered on 09/19/18at 04:34; Admin Dose 10 MLS/HR; Start 09/19/18 at 04:30 Diagnostic Test (Pha) (Accu-Chek) 1 ea Q4H XX ; Start 09/19/18 at 10:00 REBEKAH DUMONT Sep 19, 2018 09:20
[2018-09-19] MEDS: FENTAnyl (DRIP) 1000 mcg/100mL 100 ML IV SCH (12:00)
--- NOTE | 2018-09-19 12:01 | CONS ---
Assessment/Plan Assessment/Plan Hospital Course 43 yo M with hx of polysubstance abuse who presents comatose following a cardiac arrest... for which neurology is consulted. TTM was initiated. The pt is currently at goal temp. His prognosis is guarded. CTH is unrevealing. P: Ok to defer additional neuroimaging for now TTM and other medical management per primary Will follow clinically, to recommend neurologic studies, as necessary Consultation Date/Type/Reason Admit Date/Time Sep 18, 2018 at 12:38 Type of Consult Neurology Reason for Consultation coma s/p cardiac arrest Requesting Provider: REBEKAH DUMONT Date/Time of Note DATE: 09/19/18 TIME: 12:01 Hx of Present Illness The pt is currently unable to contribute a hx. TTM was initiated ~ 1800 on 09/18. He is currently at goal. He remains intubated on versed, fentanyl and vecuronium gtts. It is elsewhere noted: HPI Unknown age gentleman who presents to the emergency room with cardiac arrest. Report from EMS as the patient is a known drug abuser. He was found down in the street without evidence of trauma. The patient had PEA arrest unresponsive to ACLS, 2 rounds of epinephrine. Patient had no ventricular fibrillation. The patient had intubation in the field, return of spontaneous circulation. Accu- Chek in the field was normal. Patient arrives obtunded, intubated with pulses. Remainder of HPI is limited. Subjective hx not possible: pt non-verbal, pt critical, pt critical status Exam/Review of Systems Exam Vitals Vital Signs Date Temp Pulse Resp B/P (MAP) Pulse Ox O2 O2 Flow FiO2 Time Delivery Rate 09/19/18 40 11:22 09/19/18 46 22 100 11:15 09/19/18 91.9 150/95 08:00 (113) 09/18/18 Mechanical 14:00 Ventilator Intake and Output 09/18/18 09/18/18 09/19/18 1515:00 23:00 07:00 IntakeIntake Total 2730 ml 985.934 ml OutputOutput Total 1500 ml 1849 ml BalanceBalance 2730 ml -1500 ml -863.066 ml Exam PE: Gen Appearance: No Apparent Distress HEENT: Intubated Cardiovascular: SB on telemetry ( HR 40s) Abdomen: Soft; cooling pads placed on chest Extremities: Dry NE: The patient was comatose and nonverbal. Cranial nerve examination was limited by mental status. Pupils were equal and reactive to light. There was no afferent pupillary defect. Funduscopic examination was limited. Face was grossly symmetric, w/ present corneal and cough reflexes. Tone was normal. Muscle bulk was normal. The pt was shivering. The patient did not withdrew to noxious stimulation x 4. Coordination and gait testing was limited by mental status. Arm and leg reflexes were absent. Boyle's sign was absent. Plantar responses were mute. Results Result Diagram: 09/19/18 1054 09/19/18 1054 Results 24hrs Laboratory Tests Test 09/18/18 12:30 09/18/18 13:48 09/18/18 13:51 09/18/18 15:05 Urine Color YELLOW Urine Clarity SLIGHTLY CLOUDY A Urine pH 6.0 Urine Specific 1.013 [place] Urine Ketones NEGATIVE Urine Nitrite NEGATIVE Urine Bilirubin NEGATIVE Urine NEGATIVE Urobilinogen Urine Leukocyte NEGATIVE Esterase Urine 8 H Microscopic RBC Urine 5 Microscopic WBC Urine Bacteria FEW A Urine Mucus FEW A Urine 2+ H Hemoglobin Urine Glucose 3+ H Urine Total 2+ H Protein Urine Opiates Positive Screen Urine Negative Barbiturates Urine POSITIVE Amphetamines Screen Urine Positive Benzodiazepines Screen Urine Cocaine Negative Screen Urine Positive Cannabinoids Bedside Glucose 89 79 Lactic Acid 1.3 Level Test 09/18/18 16:17 09/18/18 16:20 09/18/18 17:15 09/18/18 18:03 Bedside Glucose 105 Sodium Level 143 Potassium Level 4.8 Chloride Level 104 Carbon Dioxide 29 # Level Anion Gap 10 # Blood Urea 16 Nitrogen Creatinine 0.79 Est Glomerular > 60 Filtrat Rate mL/min Glucose Level 113 # Lactic Acid 1.5 1.2 Level Calcium Level 8.1 L Creatine Kinase 1102 H Creatine Kinase 1.2 Index Creatinine 13.00 H Kinase MB (Mass) Troponin I 0.049 Blood Gas Blood Specimen arterial Source Arterial Blood 09/18/2018 6:00 Date Drawn :41 PM Arterial Blood 7.158 *L pH (Temp corrected ) Arterial Blood 84.6 *H pCO2 (Temp correct) Arterial Blood 32.7 *L pO2 (Temp corrected ) Arterial Blood 31.0 H HCO3 Arterial Blood -1.9 Base Excess Arterial Blood 68.2 L Oxygen Saturati on George Test ACCEPTAB Arterial Blood Right Radial Gas Puncture Site Arterial 0 Blood Carboxyhe moglobin Arterial Blood 0.3 Methemoglobin Blood Gas A-a 604.9 H O2 Differential Oxyhemoglobin 68.0 L Percent Blood Gas 33.1 Temperature Blood Gas 22.0 Respiration Rate Blood Gas 26 Actual Respiration Rat e Blood Gas VENT - AC Modality FiO2 100.0 Blood Gas Tidal 550.0 Volume Blood Gas Low 5.0 PEEP Setting Blood Gas Critical Value Read Back Blood Gas RT Notified Whom Blood Gas 09/18/2018 6:06 Notified Time :48 PM Test 09/18/18 19:03 09/18/18 20:22 09/18/18 22:54 09/18/18 23:15 Bedside Glucose 91 88 Sodium Level 143 Potassium Level 3.8 Chloride Level 104 Carbon Dioxide 27 Level Anion Gap 12 Blood Urea 15 Nitrogen Creatinine 0.62 Est Glomerular > 60 Filtrat Rate mL/min Glucose Level 145 Calcium Level 8.5 Creatine Kinase 1336 H Creatine Kinase 1.7 Index Creatinine 22.10 H Kinase MB (Mass) Troponin I 0.028 Blood Gas Blood Specimen arterial Source Arterial Blood 09/18/2018 11:0 Date Drawn 5:59 PM Arterial Blood 7.311 L pH (Temp corrected ) Arterial Blood 46.2 H pCO2 (Temp correct) Arterial Blood 541.6 H pO2 (Temp corrected ) Arterial Blood 24.0 HCO3 Arterial Blood -4.0 L Base Excess Arterial Blood 99.7 H Oxygen Saturati on George Test ACCEPTAB Arterial Blood Right Radial Gas Puncture Site Arterial 0.3 Blood Carboxyhe moglobin Arterial Blood 0.4 Methemoglobin Blood Gas A-a 134.8 H O2 Differential Oxyhemoglobin 99.0 Percent Blood Gas 32.9 Temperature Blood Gas 22.0 Respiration Rate Blood Gas 22 Actual Respiration Rat e Blood Gas VENT - AC Modality FiO2 100.0 Blood Gas Tidal 550.0 Volume Blood Gas Low 5.0 PEEP Setting Blood Gas JULIA, Azalia MACE Critical Value Read Back Blood Gas Notified Whom Blood Gas 09/18/2018 11:1 Notified Time 2:01 PM Test 09/18/18 23:46 09/19/18 02:00 09/19/18 02:14 09/19/18 03:03 Bedside Glucose 114 127 113 Prothrombin 12.8 Time Prothrombin 1.0 Time Ratio INR 0.95 International Normalized Rati o Activated 31.7 Partial Thrombo plast Time Fibrinogen 383.0 Amylase Level 52 Lipase 12 L Test 09/19/18 04:00 09/19/18 05:15 09/19/18 06:04 09/19/18 09:52 White Blood 15.4 H Count Red Blood Count 5.93 Hemoglobin 13.4 L Hematocrit 44.1 Mean 74.4 L Corpuscular Volume Mean 22.6 L Corpuscular Hemoglobin Mean 30.4 L Corpuscular Hemoglobin Conc ent Red Cell 13.9 Distribution Width Platelet Count 279 Mean Platelet 10.8 H Volume Immature 0.300 Granulocytes % Neutrophils % 92.4 H Lymphocytes % 4.3 L Monocytes % 2.9 Eosinophils % 0.0 Basophils % 0.1 Nucleated Red 0.0 Blood Cells % Immature 0.040 H Granulocytes # Neutrophils # 14.2 H Lymphocytes # 0.7 L Monocytes # 0.5 Eosinophils # 0.0 Basophils # 0.0 Nucleated Red 0.0 Blood Cells # Sodium Level 144 Potassium Level 4.1 Chloride Level 107 Carbon Dioxide 25 Level Anion Gap 12 Blood Urea 14 Nitrogen Creatinine 0.61 Est Glomerular > 60 Filtrat Rate mL/min Glucose Level 145 Lactic Acid 3.8 *H Level Calcium Level 8.4 Phosphorus 3.5 # Level Magnesium Level 2.3 Troponin I 0.014 Blood Gas Blood Specimen arterial Source Arterial Blood 09/19/2018 4:48 Date Drawn :01 AM Arterial Blood 7.360 pH (Temp corrected ) Arterial Blood 42.9 pCO2 (Temp correct) Arterial Blood 71.0 L pO2 (Temp corrected ) Arterial Blood 24.9 HCO3 Arterial Blood -2.2 Base Excess Arterial Blood 97.1 Oxygen Saturati on George Test ACCEPTAB Arterial Blood Right Radial Gas Puncture Site Arterial 0.3 Blood Carboxyhe moglobin Arterial Blood 0.2 Methemoglobin Blood Gas A-a 169.0 H O2 Differential Oxyhemoglobin 96.6 Percent Blood Gas 32.5 Temperature Blood Gas 22.0 Respiration Rate Blood Gas 22 Actual Respiration Rat e Blood Gas VENT - AC Modality FiO2 40.0 Blood Gas Tidal 550.0 Volume Blood Gas Low 5.0 PEEP Setting Blood Gas 27.0 Inspiratory Pressure Blood Gas Colin HODGE RN Critical Value Read Back Blood Gas MM Notified Whom Blood Gas 09/19/2018 4:53 Notified Time :58 AM Bedside Glucose 119 119 Test 09/19/18 10:54 09/19/18 11:15 White Blood 12.5 H Count Red Blood Count 6.03 Hemoglobin 13.8 L Hematocrit 44.4 Mean 73.6 L Corpuscular Volume Mean 22.9 L Corpuscular Hemoglobin Mean 31.1 L Corpuscular Hemoglobin Conc ent Red Cell 13.9 Distribution Width Platelet Count 289 Mean Platelet 11.4 H Volume Immature 0.500 H Granulocytes % Neutrophils % 87.0 H Lymphocytes % 8.1 L Monocytes % 4.3 Eosinophils % 0.0 Basophils % 0.1 Nucleated Red 0.0 Blood Cells % Immature 0.060 H Granulocytes # Neutrophils # 10.9 H Lymphocytes # 1.0 Monocytes # 0.5 Eosinophils # 0.0 Basophils # 0.0 Nucleated Red 0.0 Blood Cells # Activated 34.6 Partial Thrombo plast Time Sodium Level 141 Potassium Level 4.1 Chloride Level 105 Carbon Dioxide 26 Level Anion Gap 10 Blood Urea 11 Nitrogen Creatinine 0.62 Est Glomerular > 60 Filtrat Rate mL/min Glucose Level 144 Lactic Acid 2.6 *H Level Calcium Level 8.8 Phosphorus 3.0 Level Magnesium Level 2.3 Troponin I < 0.012 Blood Gas Blood Specimen arterial Source Arterial Blood 09/19/2018 10:5 Date Drawn 8:32 AM Arterial Blood 7.409 pH (Temp corrected ) Arterial Blood 37.2 pCO2 (Temp correct) Arterial Blood 56.9 L pO2 (Temp corrected ) Arterial Blood 24.1 HCO3 Arterial Blood -1.8 Base Excess Arterial Blood 95.4 Oxygen Saturati on George Test ACCEPTAB Arterial Blood Right Radial Gas Puncture Site Arterial 0.2 Blood Carboxyhe moglobin Arterial Blood 0.2 Methemoglobin Blood Gas A-a 116.3 H O2 Differential Oxyhemoglobin 95.0 Percent Blood Gas 32.7 Temperature Blood Gas 22.0 Respiration Rate Blood Gas 22 Actual Respiration Rat e Blood Gas VENT - AC Modality FiO2 30.0 Blood Gas Tidal 550.0 Volume Blood Gas Low 5.0 PEEP Setting Blood Gas TM Notified Whom Blood Gas 09/19/2018 11:1 Notified Time 4:09 AM Medications Medication Current Medications Norepinephrine 250 ml @ 7.5 mls/hr PER PROTOCOL ONCE IV ; Start 09/18/18 at 11:30; Stop 09/19/18 at 20:49 Fentanyl 100 ml @ 2.5 mls/hr PER PROTOCOL ONCE IV Last administered on 09/18/18at 12:11; Admin Dose 3 MLS/HR; Start 09/18/18 at 11:30; Stop 09/20/18 at 03:29 Sodium Chloride 1,000 ml @ 80 mls/hr [id number] IV Last administered on 09/18/18at 00:00; Admin Dose 80 MLS/HR; Start 09/18/18 at 15:00 Ondansetron HCl (Zofran Inj) 4 mg Q6H PRN IV NAUSEA AND/OR VOMITING; Start 09/18/18 at 15:00 Pantoprazole (Protonix Iv) 40 mg DAILY@06 IV Last administered on 09/19/18at 05:28; Admin Dose 40 MG; Start 09/19/18 at 06:00 Piperacillin Sod/ Tazobactam Sod 100 ml @ 200 mls/hr Q8 IVPB Last administered on 09/19/18at 05:28; Admin Dose 200 MLS/HR; Start 09/18/18 at 14:44 Acetaminophen (Tylenol Supp) 650 mg Q4H PRN OR TEMP > 37C Last administered on 09/18/18at 17:43; Admin Dose 650 MG; Start 09/18/18 at 17:30 Acetaminophen (Tylenol Liquid) 650 mg Q4H PRN PO TEMP > 37C; Start 09/18/18 at 17:30 Acetaminophen (Tylenol Supp) 500 mg Q6H OR ; Start 09/19/18 at 17:30 Acetaminophen (Tylenol Liquid) 500 mg Q6H PO ; Start 09/19/18 at 17:30 Meperidine HCl (Demerol) 12.5 mg Q4H PRN IV POST OPERATIVE SHIVERING; Start 09/18/18 at 17:30 Meperidine HCl (Demerol) 25 mg Q4H PRN IV POST OPERATIVE SHIVERING Last administered on 09/18/18at 18:26; Admin Dose 25 MG; Start 09/18/18 at 17:30 Eye Lubricant (Artificial Tears Oph) 2 drop Q6 BOTH EYES Last administered on 09/19/18at 05:27; Admin Dose 2 DROP; Start 09/18/18 at 18:00 Propofol 100 ml @ 2.181 mls/ hr TITRATE IV Last administered on 09/19/18at 00:30; Admin Dose 8.724 MLS/HR; Start 09/18/18 at 23:30 Insulin Human Regular 100 unit/ Sodium Chloride 100 ml @ 0 mls/hr PER PROTOCOL IV ; Start 09/19/18 at 00:45 Miscellaneous Information (* Miscellaneous Pharmacy Order) Treatment of Hypoglycemia: 1.BG 51... Per protocol XX ; Start 09/19/18 at 00:00 Dextrose (D50w Syringe) 25 ml Q15M PRN IV .DECREASED GLUCOSE; Start 09/19/18 at 00:00 Dextrose (D50w Syringe) 50 ml Q15M PRN IV .DECREASED GLUCOSE; Start 09/19/18 at 00:00 Eye Lubricant (Akwa Oint) 1 applic Q6 BOTH EYES Last administered on 09/19/18at 02:21; Admin Dose 1 APPLIC; Start 09/19/18 at 00:43 Vecuronium Olean 100 mg/ Dextrose 100 ml @ 0 mls/hr TITRATE IV Last administered on 09/19/18at 03:00; Admin Dose 3.6 MLS/HR; Start 09/19/18 at 03:00 Midazolam HCl 50 ml @ 1 mls/hr TITRATE IV Last administered on 09/19/18at 04:34; Admin Dose 10 MLS/HR; Start 09/19/18 at 04:30 Diagnostic Test (Pha) (Accu-Chek) 1 ea Q4H XX ; Start 09/19/18 at 10:00 Past Medical History reviewed Home Meds Unable to Obtain Active Prescriptions or Reported Meds Medications Current Medications Norepinephrine 250 ml @ 7.5 mls/hr PER PROTOCOL ONCE IV ; Start 09/18/18 at 11:30; Stop 09/19/18 at 20:49 Fentanyl 100 ml @ 2.5 mls/hr PER PROTOCOL ONCE IV Last administered on 09/18/18at 12:11; Admin Dose 3 MLS/HR; Start 09/18/18 at 11:30; Stop 09/20/18 at 03:29 Sodium Chloride 1,000 ml @ 80 mls/hr [id number] IV Last administered on 09/18/18at 00:00; Admin Dose 80 MLS/HR; Start 09/18/18 at 15:00 Ondansetron HCl (Zofran Inj) 4 mg Q6H PRN IV NAUSEA AND/OR VOMITING; Start 09/18/18 at 15:00 Pantoprazole (Protonix Iv) 40 mg DAILY@06 IV Last administered on 09/19/18at 05:28; Admin Dose 40 MG; Start 09/19/18 at 06:00 Piperacillin Sod/ Tazobactam Sod 100 ml @ 200 mls/hr Q8 IVPB Last administered on 09/19/18at 05:28; Admin Dose 200 MLS/HR; Start 09/18/18 at 14:44 Acetaminophen (Tylenol Supp) 650 mg Q4H PRN OR TEMP > 37C Last administered on 09/18/18at 17:43; Admin Dose 650 MG; Start 09/18/18 at 17:30 Acetaminophen (Tylenol Liquid) 650 mg Q4H PRN PO TEMP > 37C; Start 09/18/18 at 17:30 Acetaminophen (Tylenol Supp) 500 mg Q6H OR ; Start 09/19/18 at 17:30 Acetaminophen (Tylenol Liquid) 500 mg Q6H PO ; Start 09/19/18 at 17:30 Meperidine HCl (Demerol) 12.5 mg Q4H PRN IV POST OPERATIVE SHIVERING; Start 09/18/18 at 17:30 Meperidine HCl (Demerol) 25 mg Q4H PRN IV POST OPERATIVE SHIVERING Last administered on 09/18/18at 18:26; Admin Dose 25 MG; Start 09/18/18 at 17:30 Eye Lubricant (Artificial Tears Oph) 2 drop Q6 BOTH EYES Last administered on 09/19/18at 05:27; Admin Dose 2 DROP; Start 09/18/18 at 18:00 Propofol 100 ml @ 2.181 mls/ hr TITRATE IV Last administered on 09/19/18at 00:30; Admin Dose 8.724 MLS/HR; Start 09/18/18 at 23:30 Insulin Human Regular 100 unit/ Sodium Chloride 100 ml @ 0 mls/hr PER PROTOCOL IV ; Start 09/19/18 at 00:45 Miscellaneous Information (* Miscellaneous Pharmacy Order) Treatment of Hypoglycemia: 1.BG 51... Per protocol XX ; Start 09/19/18 at 00:00 Dextrose (D50w Syringe) 25 ml Q15M PRN IV .DECREASED GLUCOSE; Start 09/19/18 at 00:00 Dextrose (D50w Syringe) 50 ml Q15M PRN IV .DECREASED GLUCOSE; Start 09/19/18 at 00:00 Eye Lubricant (Akwa Oint) 1 applic Q6 BOTH EYES Last administered on 09/19/18at 02:21; Admin Dose 1 APPLIC; Start 09/19/18 at 00:43 Vecuronium Olean 100 mg/ Dextrose 100 ml @ 0 mls/hr TITRATE IV Last administered on 09/19/18at 03:00; Admin Dose 3.6 MLS/HR; Start 09/19/18 at 03:00 Midazolam HCl 50 ml @ 1 mls/hr TITRATE IV Last administered on 09/19/18at 04:34; Admin Dose 10 MLS/HR; Start 09/19/18 at 04:30 Diagnostic Test (Pha) (Accu-Chek) 1 ea Q4H XX ; Start 09/19/18 at 10:00 Allergies: Coded Allergies: No Known Allergy (Unverified , 09/18/18) Past Surgical History reviewed Social History reviewed Smoking Status: Unknown if ever smoked AL LEE NP Sep 19, 2018 12:01
--- NOTE | 2018-09-19 13:52 | HP ---
DATE OF ADMISSION: 09/18/2018 CHIEF COMPLAINT: Altered mentation. HISTORY OF PRESENTING COMPLAINT: This is 43 yo M who was brought into the Emergency Room with cardiac arrest. The patient was found down in the street, without evidence of trauma. He was thought to be cardiac arrest and was resuscitated via ACLS protocol and intubated in the field. He had returned of spontaneous circulation and he arrived in the Emergency Room obtunded. No other history is obtainable. at this time, patient is on hypothermia protocol and then admitted to intensive care unit. PAST SURGICAL HISTORY: Unknown. ALLERGIES: Unknown. SOCIAL HISTORY: Unobtainable. REVIEW OF SYSTEMS: Unobtainable. PHYSICAL EXAMINATION VITAL SIGNS: Temperature at this time is trending down, the cause of which is known. Temperature 97.4, heart rate 129, blood pressure 146/89, saturations 92% mechanical ventilator with FIO2 of 100%. GENERAL: The patient is obtunded, intubated. No movement noted. HEENT: Head is normocephalic. Pupils fixed and dilated. NECK: Intubated. RESPIRATORY: Coarse breath sounds with ventilator support. CARDIOVASCULAR: Tachycardia. ABDOMEN: Soft, mildly distended, hypoactive bowel sounds. GENITOURINARY: No scrotal edema. EXTREMITIES: No movement noted. SKIN: There is no edema. LABORATORY VALUES: Leukocytosis of 41,000, hemoglobin of 13, bicarbonate level of 17, glucose of 292. Coag panel unremarkable. Potassium 3.9, creatinine 1.12. LFTs so far are normal. Phosphorus is elevated at 9.1, mag is within normal range. Liver profile, AST 77, ALT 32. First troponin 0.025. Urine toxicology screen positive for opiates, amphetamines, benzodiazepines as well as cannabinoids. IMAGING STUDIES: A chest x-ray showed ET tube in appropriate position, NG tube extending to the diaphragm. LUNGS: Clear. Brain CT showed possible ischemia in the basal ganglia. ASSESSMENT: This is a 43-year-old male brought in obtunded found unresponsive on the streets with cardiac arrest with the following problems: 1. Status post cardiac arrest with rosc. 2. Possible accidental overdose. 3. Acute basal ganglis ischemia. 4. Multi-substance use and abuse. 5. Systemic inflammatory response syndrome secondary to #1. 6. Acute respiratory failure. 7. Hyperphosphatemia. 8. Severe rhabdomyolysis. 9. Systemic shock likely cardiogenic from cardiac arrest SOCIAL HISTORY: Patient is still an unidentified male at this time. Admit to the intensive care unit, continue ventilator support and management. Continue hypothermia protocol for 24 hours and then begin rewarming process. Patient will need MRI of the brain after protocol. We will also get neurology as well as pulmonology consultation. The patient will likely require cardiology consultations as well. Continue pressor support and wean as tolerated. Also start empiric antibiotics for aspiration and interventions will depend on clinical course. With that the patient is going to require serial labs every 4 to 6 hours and further interventions from that, He is requiring close ICU medical management and monitoring and care time so far has already been more than an hour and patient will continue to be observed closely. Overall, prognosis is grim. The patient likely has suffered an irreversible neurologic injury. However, we will have to wait and see after the protocol. We will use sequential compression devices only for DVT prophylaxis at this time. I used a PPI for GI prophylaxis also as patient isn high risk for aspiration He likely has had an ischemic stroke, he is at risk for hemorrhagic conversion. Dictated By: REBEKAH DUMONT MD, BA/NGA Conf#: [id number] DID#: [id number] JONNY
[2018-09-19] MEDS ORDERED: ATROPINE 1 MG/10 ML SYRINGE ONE (14:51)
[2018-09-19] MEDS ORDERED: ATROPINE 1 MG/10 ML SYRINGE IV ONE (15:00)
[2018-09-19] MEDS: ACETAMINOPHEN 650MG/20.3ML CUP PO SCH ×2 (17:30→23:34)
[2018-09-19] MEDS: ACETAMINOPHEN 650 MG SUPP PR SCH ×2 (17:57→23:34)
[2018-09-19] MEDS: DEXTROSE 50% 50 ML SYRINGE IV PRN (22:05)
[2018-09-20] VITALS (64 sets, daily range): BP systolic 101–146; BP diastolic 61–110; PULSE 57–123; RESP 0–22; Ht 165.1 cm; Wt 73.0 kg
[2018-09-20] MEDS ORDERED: VANCOMYCIN IV PER PHARMACY XX SCH (00:30)
[2018-09-20] MEDS: SOD CHLORIDE 0.9% 1,000 ML IV SCH (01:00)
[2018-09-20] MEDS ORDERED: VANCOMYCIN HCL 1.5 GM in SOD CHLORIDE 0.9% 250 ML IVPB ONE (01:00)
[2018-09-20] MEDS: MIDAZOLAM (DRIP) 50 mg/50 mL 50 ML IV SCH ×4 (01:00→20:58)
[2018-09-20] MEDS: DEXTROSE 50% 50 ML SYRINGE IV PRN ×2 (02:11→04:25)
[2018-09-20] MEDS: ACCU-CHEK XX SCH ×6 (02:12→20:45)
[2018-09-20] MEDS ORDERED: SOD CHLORIDE 0.9% 500 ML IV ONE (02:30)
[2018-09-20] MEDS: DEXTROSE 5%-0.9% NACL 1,000 ML IV SCH ×3 (02:34→19:00)
[2018-09-20] MEDS: ACETAMINOPHEN 650MG/20.3ML CUP PO SCH ×4 (05:26→23:30)
[2018-09-20] MEDS: ACETAMINOPHEN 650 MG SUPP PR SCH ×4 (05:27→22:05)
[2018-09-20] MEDS: PIPER-TAZO 3.375 GM IV (PMX) 100 ML IVPB SCH ×3 (05:28→21:47)
[2018-09-20] MEDS: PANTOPRAZOLE 40 MG INJ IV SCH (05:28)
[2018-09-20] MEDS: ARTIFICIAL TEARS 15 ML OPH BOTH EYES SCH ×3 (05:44→16:18)
[2018-09-20] MEDS: OCULAR LUBRICANT 3.5 GM OPH OINT BOTH EYES SCH ×3 (05:44→16:18)
--- NOTE | 2018-09-20 08:38 | CONS ---
Assessment/Plan Assessment/Plan Hospital Course 43 yo M with hx of polysubstance abuse who presents comatose following a cardiac arrest... for which neurology is consulted. TTM was initiated. The pt is currently being rewarmed. His prognosis is guarded. CTH is unrevealing. P: Ok to defer additional neuroimaging for now TTM and other medical management per primary Will follow clinically, to recommend neurologic studies, as necessary Consultation Date/Type/Reason Admit Date/Time Sep 18, 2018 at 12:38 Type of Consult Neurology Reason for Consultation coma s/p cardiac arrest Requesting Provider: REBEKAH DUMONT Date/Time of Note DATE: 09/20/18 TIME: 08:37 24 HR Interval Summary Free Text/Dictation Continues critical care. Rewarming started around 1800 yesterday evening. The pt is almost at goal temp. Subjective hx not possible: pt non-verbal, pt critical, pt critical status Exam Vital Signs Vitals Vital Signs Date Temp Pulse Resp B/P (MAP) Pulse Ox O2 O2 Flow FiO2 Time Delivery Rate 09/20/18 97.7 87 22 138/89 100 08:00 (105) 09/20/18 35 08:00 09/18/18 Mechanical 14:00 Ventilator Intake and Output 09/19/18 09/19/18 09/20/18 1515:00 23:00 07:00 IntakeIntake Total 672.04 ml 792.54 ml 1335.94 ml OutputOutput Total 447 ml 376 ml 228 ml BalanceBalance 225.04 ml 416.54 ml 1107.94 ml Exam PE: Gen Appearance: No Apparent Distress HEENT: Intubated Cardiovascular: Regular rate Abdomen: Soft Extremities: Dry NE: The patient was obtunded and nonverbal. The pt grimaced to noxious stimuli. Cranial nerve examination was limited by mental status. Pupils were equal, pinpoint, and briskly reactive to light. There was no afferent pupillary defect. Funduscopic examination was limited. Face was grossly symmetric, w/ present corneal and cough reflexes. Tone was normal. Muscle bulk was normal. I did not see fasciculations. The patient withdrew to noxious stimulation in his lower extremities. Coordination and gait testing was limited by mental status. Arm and leg reflexes were within normal limits and symmetric. Boyle's sign was absent. Plantar responses were flexor. JESUSAL RISK ASSESSMENT ANALYST Sep 20, 2018 08:37
[2018-09-20] MEDS: IPRATROPIUM (HFA) 12.9 GM INHALER INH SCH ×3 (08:46→20:06)
[2018-09-20] MEDS: ALBUTEROL HFA 8 GM INHALER INH SCH ×3 (08:46→20:06)
[2018-09-20] MEDS: VANCOMYCIN 1 GM 250 ML IVPB SCH ×2 (08:58→16:17)
--- NOTE | 2018-09-20 09:14 | CONS ---
Assessment/Plan Assessment/Plan Assessment/Plan (Daily) Chest x-ray was reviewed from today which is totally clear. Ventilator setting; AC of 22, tidal volume 550, PEEP of 5, 35% FiO2. Patient is currently on fentanyl 30 mics per hour, Versed 5 mg/h. Assessment and recommendations; next 1. Patient admitted with cardiac arrest status post CPR likely due to drug overdose. Currently on rewarming phase of hypothermia protocol. At this time difficult to assess for any neurological injury. 2. History of asthma with bronchospasm, possibly some element of aspiration pneumonia. However chest x-ray from today is totally clear. 3. Leukocytosis, due to gram-positive bacteremia. Patient currently on appropriate antimicrobial regimen. Continue current supportive care. Add Solu-Medrol 40 mg every 8 hours for at least 3 doses with DuoNeb every 6 hours. Mental status to be assessed once the patient is off hypothermia protocol. 35 minutes of critical care time was spent evaluating the patient. Consultation Date/Type/Reason Admit Date/Time Sep 18, 2018 at 12:38 Initial Consult Date 09/19/18 Type of Consult Pulmonary/critical care Patient is a 43-year-old male who was brought into the hospital after he was found down on [address]. On-site CPR was done with revival of vital signs. Patient has been admitted to ICU and is currently on hypothermia protocol. Past medical history; unremarkable perhaps except for drug abuse. Medications; were reviewed. Patient is currently on fentanyl 70 mics per hour, Versed 6 mg/h, patient is on hypothermia protocol. Other medications were reviewed. Allergies; not available. Social history, positive for drug abuse. Family history; not available. Occupational history; not available. Review of system; unable to be obtained. General exam; young male, orally intubated, sedated and paralyzed. Requesting Provider: REBEKAH DUMONT Date/Time of Note DATE: 09/20/18 TIME: 09:09 24 HR Interval Summary Free Text/Dictation Patient's condition is critical. Currently on rewarming phase of hypothermia protocol. Patient has remained hemodynamically stable. No overt seizure activity reported. General exam; young male, orally intubated, sedated, currently in no distress. Exam/Review of Systems Exam Vitals Vital Signs Date Temp Pulse Resp B/P (MAP) Pulse Ox O2 O2 Flow FiO2 Time Delivery Rate 09/20/18 98.0 123 20 125/80 100 09:00 (95) 09/20/18 35 08:00 09/18/18 Mechanical 14:00 Ventilator Intake and Output 09/19/18 09/19/18 09/20/18 1515:00 23:00 07:00 IntakeIntake Total 672.04 ml 792.54 ml 1335.94 ml OutputOutput Total 447 ml 376 ml 228 ml BalanceBalance 225.04 ml 416.54 ml 1107.94 ml Exam H EENT exam; supple neck, no JVD. No lymphadenopathy. Patient has good dentition. Orally intubated. No neck masses. Pupils are midsize and reactive to light. Chest exam; bilateral wheezing S1-S2 audible, no murmurs. Regular rhythm. Abdomen exam; soft, no organomegaly. Bowel sounds audible. Nondistended. Extremity exam; no peripheral edema clubbing. Pulses 1+. NEUROBIOLOGIST exam; patient is sedated. Results Result Diagram: 09/20/18 0500 09/20/18 0500 Results 24hrs Laboratory Tests Test 09/19/18 09:52 09/19/18 10:54 09/19/18 11:15 09/19/18 14:06 Bedside Glucose 119 99 White Blood 12.5 H Count Red Blood Count 6.03 Hemoglobin 13.8 L Hematocrit 44.4 Mean 73.6 L Corpuscular Volume Mean 22.9 L Corpuscular Hemoglobin Mean 31.1 L Corpuscular Hemoglobin Conc ent Red Cell 13.9 Distribution Width Platelet Count 289 Mean Platelet 11.4 H Volume Immature 0.500 H Granulocytes % Neutrophils % 87.0 H Lymphocytes % 8.1 L Monocytes % 4.3 Eosinophils % 0.0 Basophils % 0.1 Nucleated Red 0.0 Blood Cells % Immature 0.060 H Granulocytes # Neutrophils # 10.9 H Lymphocytes # 1.0 Monocytes # 0.5 Eosinophils # 0.0 Basophils # 0.0 Nucleated Red 0.0 Blood Cells # Activated 34.6 Partial Thrombo plast Time Sodium Level 141 Potassium Level 4.1 Chloride Level 105 Carbon Dioxide 26 Level Anion Gap 10 Blood Urea 11 Nitrogen Creatinine 0.62 Est Glomerular > 60 Filtrat Rate mL/min Glucose Level 144 Lactic Acid 2.6 *H Level Calcium Level 8.8 Phosphorus 3.0 Level Magnesium Level 2.3 Troponin I < 0.012 Blood Gas Blood arterial Specimen Source Arterial Blood 09/19/2018 10:58 Date Drawn :32 AM Arterial Blood 7.409 pH (Temp corrected ) Arterial Blood 37.2 pCO2 (Temp correct) Arterial Blood 56.9 L pO2 (Temp corrected ) Arterial Blood 24.1 HCO3 Arterial Blood -1.8 Base Excess Arterial Blood 95.4 Oxygen Saturati on George Test ACCEPTAB Arterial Blood Right Radial Gas Puncture Site Arterial 0.2 Blood Carboxyhe moglobin Arterial Blood 0.2 Methemoglobin Blood Gas A-a 116.3 H O2 Differential Oxyhemoglobin 95.0 Percent Blood Gas 32.7 Temperature Blood Gas 22.0 Respiration Rate Blood Gas 22 Actual Respiration Rat e Blood Gas VENT - AC Modality FiO2 30.0 Blood Gas Tidal 550.0 Volume Blood Gas Low 5.0 PEEP Setting Blood Gas TM Notified Whom Blood Gas 09/19/2018 11:14 Notified Time :09 AM Test 09/19/18 17:10 09/19/18 17:11 09/19/18 17:12 09/19/18 17:15 Lactic Acid 1.4 Level Ammonia < 9 L White Blood 13.6 H Count Red Blood Count 5.86 Hemoglobin 13.4 L Hematocrit 42.7 Mean 72.9 L Corpuscular Volume Mean 22.9 L Corpuscular Hemoglobin Mean 31.4 L Corpuscular Hemoglobin Conc ent Red Cell 13.5 Distribution Width Platelet Count 277 Mean Platelet 10.9 H Volume Immature 0.500 H Granulocytes % Neutrophils % 85.6 H Lymphocytes % 7.5 L Monocytes % 6.3 Eosinophils % 0.0 Basophils % 0.1 Nucleated Red 0.0 Blood Cells % Immature 0.070 H Granulocytes # Neutrophils # 11.6 H Lymphocytes # 1.0 Monocytes # 0.9 Eosinophils # 0.0 Basophils # 0.0 Nucleated Red 0.0 Blood Cells # Prothrombin 13.8 Time Prothrombin 1.1 Time Ratio INR 1.05 International Normalized Rati o Activated 35.9 H Partial Thrombo plast Time Fibrinogen 506.0 #H Sodium Level 150 H Potassium Level 4.4 Chloride Level 116 H Carbon Dioxide 22 Level Anion Gap 12 Blood Urea 11 Nitrogen Creatinine 0.60 L Est Glomerular > 60 Filtrat Rate mL/min Glucose Level 133 Calcium Level 9.9 Phosphorus 3.2 Level Magnesium Level 2.3 Troponin I < 0.012 Amylase Level < 30 Lipase 14 L Blood Gas Blood Specimen arterial Source Arterial Blood 09/19/2018 5:15 Date Drawn :45 PM Arterial Blood 7.422 pH (Temp corrected ) Arterial Blood 35.9 pCO2 (Temp correct) Arterial Blood 74.9 L pO2 (Temp corrected ) Arterial Blood 23.9 HCO3 Arterial Blood -1.5 Base Excess Arterial Blood 97.4 Oxygen Saturati on George Test ACCEPTAB Arterial Blood Right Radial Gas Puncture Site Arterial 0.4 Blood Carboxyhe moglobin Arterial Blood 0.3 Methemoglobin Blood Gas A-a 172.6 H O2 Differential Oxyhemoglobin 96.7 Percent Blood Gas 33.1 Temperature Blood Gas 22.0 Respiration Rate Blood Gas 22 Actual Respiration Rat e Blood Gas VENT - AC Modality FiO2 40.0 Blood Gas Tidal 550.0 Volume Blood Gas Low 5.0 PEEP Setting Blood Gas AT Notified Whom Blood Gas 09/19/2018 5:29 Notified Time :10 PM Test 09/19/18 18:32 09/19/18 22:03 09/19/18 22:20 09/19/18 22:24 Bedside Glucose 102 77 172 White Blood 15.2 H Count Red Blood Count 5.60 Hemoglobin 12.9 L Hematocrit 40.6 L Mean 72.5 L Corpuscular Volume Mean 23.0 L Corpuscular Hemoglobin Mean 31.8 L Corpuscular Hemoglobin Conc ent Red Cell 13.6 Distribution Width Platelet Count 278 Mean Platelet 11.2 H Volume Immature 0.600 H Granulocytes % Neutrophils % 89.8 H Lymphocytes % 6.3 L Monocytes % 3.0 Eosinophils % 0.1 Basophils % 0.2 Nucleated Red 0.0 Blood Cells % Immature 0.090 H Granulocytes # Neutrophils # 13.6 H Lymphocytes # 1.0 Monocytes # 0.5 Eosinophils # 0.0 Basophils # 0.0 Nucleated Red 0.0 Blood Cells # Sodium Level 139 Potassium Level 4.3 Chloride Level 106 # Carbon Dioxide 26 Level Anion Gap 7 Blood Urea 11 Nitrogen Creatinine 0.54 L Est Glomerular > 60 Filtrat Rate mL/min Glucose Level 193 Lactic Acid 1.2 Level Calcium Level 9.0 Phosphorus 3.2 Level Magnesium Level 2.1 Troponin I < 0.012 Test 09/19/18 22:45 09/19/18 23:15 09/20/18 02:06 09/20/18 02:10 Bedside Glucose 143 77 Blood Gas Blood arterial Specimen Source Arterial Blood 09/19/2018 11:15 Date Drawn :28 PM Arterial Blood 7.451 H pH (Temp corrected ) Arterial Blood 35.7 pCO2 (Temp correct) Arterial Blood 86.6 pO2 (Temp corrected ) Arterial Blood 25.0 HCO3 Arterial Blood 0.4 Base Excess Arterial Blood 97.0 Oxygen Saturati on George Test ACCEPTAB Arterial Blood Right Radial Gas Puncture Site Arterial 0.1 Blood Carboxyhe moglobin Arterial Blood 0.2 Methemoglobin Blood Gas A-a 160.4 H O2 Differential Oxyhemoglobin 96.7 Percent Blood Gas 34.2 Temperature Blood Gas 22.0 Respiration Rate Blood Gas 22 Actual Respiration Rat e Blood Gas VENT - AC Modality FiO2 40.0 Blood Gas Tidal 550.0 Volume Blood Gas Low 5.0 PEEP Setting Blood Gas 27.0 Inspiratory Pressure Blood Gas MG Notified Whom Blood Gas 09/19/2018 11:33 Notified Time :48 PM Prothrombin 14.1 Time Prothrombin 1.1 Time Ratio INR 1.08 International Normalized Rati o Activated 33.7 Partial Thrombo plast Time Fibrinogen 417.0 # Amylase Level 35 Lipase 18 L Test 09/20/18 02:31 09/20/18 02:47 09/20/18 04:22 09/20/18 04:41 Bedside Glucose 102 99 60 L 170 Test 09/20/18 04:56 09/20/18 05:00 09/20/18 06:00 09/20/18 06:03 Bedside Glucose 127 90 White Blood 18.3 #H Count Red Blood Count 5.32 Hemoglobin 12.2 L Hematocrit 38.3 L Mean 72.0 L Corpuscular Volume Mean 22.9 L Corpuscular Hemoglobin Mean 31.9 L Corpuscular Hemoglobin Conc ent Red Cell 13.7 Distribution Width Platelet Count 268 Mean Platelet 11.1 H Volume Immature 0.500 H Granulocytes % Neutrophils % 87.9 H Lymphocytes % 7.0 L Monocytes % 4.2 Eosinophils % 0.2 Basophils % 0.2 Nucleated Red 0.0 Blood Cells % Immature 0.090 H Granulocytes # Neutrophils # 16.1 H Lymphocytes # 1.3 Monocytes # 0.8 Eosinophils # 0.0 Basophils # 0.0 Nucleated Red 0.0 Blood Cells # Activated 34.1 Partial Thrombo plast Time Sodium Level 142 Potassium Level 3.8 Chloride Level 109 Carbon Dioxide 26 Level Anion Gap 7 Blood Urea 10 Nitrogen Creatinine 0.65 Est Glomerular > 60 Filtrat Rate mL/min Glucose Level 199 Lactic Acid 1.2 Level Calcium Level 8.5 Phosphorus 2.5 Level Magnesium Level 2.1 Creatine Kinase 788 H Troponin I < 0.012 Blood Gas Blood arterial Specimen Source Arterial Blood 09/20/2018 5:40: Date Drawn 34 AM Arterial Blood 7.428 pH (Temp corrected ) Arterial Blood 38.5 pCO2 (Temp correct) Arterial Blood 75.3 L pO2 (Temp corrected ) Arterial Blood 25.2 HCO3 Arterial Blood 0.5 Base Excess Arterial Blood 96.4 Oxygen Saturati on George Test ACCEPTAB Arterial Blood Right Radial Gas Puncture Site Arterial 0.3 Blood Carboxyhe moglobin Arterial Blood 0.2 Methemoglobin Blood Gas A-a 130.6 H O2 Differential Oxyhemoglobin 95.9 Percent Blood Gas 35.8 Temperature Blood Gas 22.0 Respiration Rate Blood Gas 22 Actual Respiration Rat e Blood Gas VENT - AC Modality FiO2 35.0 Blood Gas Tidal 550.0 Volume Blood Gas Low 5.0 PEEP Setting Blood Gas [facility] Notified Whom Blood Gas 09/20/2018 5:50: Notified Time 19 AM Test 09/20/18 07:55 09/20/18 07:58 Bedside Glucose 77 92 Medications Medication Current Medications Ondansetron HCl (Zofran Inj) 4 mg Q6H PRN IV NAUSEA AND/OR VOMITING; Start 09/18/18 at 15:00 Pantoprazole (Protonix Iv) 40 mg DAILY@06 IV Last administered on 09/20/18at 0 5:28; Admin Dose 40 MG; Start 09/19/18 at 06:00 Piperacillin Sod/ Tazobactam Sod 100 ml @ 200 mls/hr Q8 IVPB Last administered on 09/20/18at 05:28; Admin Dose 200 MLS/HR; Start 09/18/18 at 14:44 Acetaminophen (Tylenol Supp) 650 mg Q4H PRN TX TEMP > 37C Last administered on 09/18/18at 17:43; Admin Dose 650 MG; Start 09/18/18 at 17:30 Acetaminophen (Tylenol Liquid) 650 mg Q4H PRN PO TEMP > 37C; Start 09/18/18 at 17:30 Acetaminophen (Tylenol Supp) 500 mg Q6H TX Last administered on 09/20/18at 05: 27; Admin Dose 500 MG; Start 09/19/18 at 17:30 Acetaminophen (Tylenol Liquid) 500 mg Q6H PO Last administered on 09/20/18 05:26; Admin Dose 500 MG; Start 09/19/18 at 17:30 Meperidine HCl (Demerol) 12.5 mg Q4H PRN IV POST OPERATIVE SHIVERING; Start 09/18/18 at 17:30 Meperidine HCl (Demerol) 25 mg Q4H PRN IV POST OPERATIVE SHIVERING Last administered on 09/18/18 18:26; Admin Dose 25 MG; Start 09/18/18 at 17:30 Eye Lubricant (Artificial Tears Oph) 2 drop Q6 BOTH EYES Last administered on 09/20/18 05:44; Admin Dose 2 DROP; Start 09/18/18 at 18:00 Propofol 100 ml @ 2.181 mls/ hr TITRATE IV Last administered on 09/19/18 00:30; Admin Dose 8.724 MLS/HR; Start 09/18/18 at 23:30 Insulin Human Regular 100 unit/ Sodium Chloride 100 ml @ 0 mls/hr PER PROTOCOL IV ; Start 09/19/18 at 00:45 Miscellaneous Information (* Miscellaneous Pharmacy Order) Treatment of Hypoglycemia: 1.BG 51... Per protocol XX ; Start 09/19/18 at 00:00 Dextrose (D50w Syringe) 25 ml Q15M PRN IV .DECREASED GLUCOSE Last administered on 09/20/18 02:11; Admin Dose 25 ML; Start 09/19/18 at 00:00 Dextrose (D50w Syringe) 50 ml Q15M PRN IV .DECREASED GLUCOSE Last administered on 09/20/18 04:25; Admin Dose 50 ML; Start 09/19/18 at 00:00 Eye Lubricant (Akwa Oint) 1 applic Q6 BOTH EYES Last administered on 09/20/18 05:44; Admin Dose 1 APPLIC; Start 09/19/18 at 00:43 Vecuronium [place] 100 mg/ Dextrose 100 ml @ 0 mls/hr TITRATE IV Last administered on 09/19/18 03:00; Admin Dose 3.6 MLS/HR; Start 09/19/18 at 03:00 Midazolam HCl 50 ml @ 1 mls/hr TITRATE IV Last administered on 3/30/19at 07:42; Admin Dose 5 MLS/HR; Start 09/19/18 at 04:30 Fentanyl 100 ml @ 2.5 mls/hr TITRATE IV Last administered on 09/19/18at 12:00; Admin Dose 3 MLS/HR; Start 09/19/18 at 14:00 Vancomycin HCl (Vanco Iv Per Pharmacy) VANCOMYCIN PER PHARMACY PER PROTOCOL XX ; Start 09/20/18 at 00:30 Vancomycin HCl 250 ml @ 125 mls/hr Q8H IVPB Last administered on 09/20/18 08:58; Admin Dose 125 MLS/HR; Start 09/20/18 at 09:00 Dextrose/Sodium Chloride 1,000 ml @ 80 mls/hr [id number] IV Last administered on 09/20/18 02:34; Admin Dose 80 MLS/HR; Start 09/20/18 at 03:30 Diagnostic Test (Pha) (Accu-Chek) 1 ea Q2H XX Last administered on 09/20/18 07:51; Admin Dose 1 EA; Start 09/20/18 at 06:00 Albuterol (Ventolin Hfa) 4 puff Q6H RESP THERAPY INH Last administered on 09/20/18 08:46; Admin Dose 4 PUFF; Start 09/20/18 at 08:30 Ipratropium [place] (Atrovent Hfa) 4 puff Q6H RESP THERAPY INH Last administered on 09/20/18 08:46; Admin Dose 4 PUFF; Start 09/20/18 at 08:30 ISRRAEL CAICEDO Sep 20, 2018 09:14
[2018-09-20] MEDS: METHYLPREDNISOLONE 40 MG INJ IV SCH ×3 (09:30→21:47)
[2018-09-20] MEDS ORDERED: SOD CHLORIDE 0.9% 1,000 ML IV ONE (09:30)
[2018-09-20] MEDS: PROPOFOL 100 ML IV SCH (11:00)
[2018-09-20] MEDS: FENTAnyl (DRIP) 1000 mcg/100mL 100 ML IV SCH (11:54)
--- NOTE | 2018-09-20 12:22 | PN ---
Date/Time of Note Date/Time of Note DATE: 09/20/18 TIME: 12:20 Assessment/Plan VTE Prophylaxis Risk score (from Ns)>0 risk: 2 SCD applied (from Ns): Yes Pharmacological prophylaxis: heparin Assessment/Plan Hospital Course 43-year-old male who was found unresponsive on the street brought in by EMS as a Ti Feng currently managed as follows: 1. Acute toxic metabolic encephalopathy Monitor for ischemic encephalopathy Completing hypothermia today 2. Accidental overdose 3. Acute respiratory failure secondary to #2 4. Multi-substance abuse 5. Systemic inflammatory response syndrome secondary to #1 6. Status post cardiac arrest with return of spontaneous circulation after resuscitation 7. Severe rhabdomyolysis Monitor 8. Cardiogenic shock with lactic acidosis 9. High probability of aspiration pneumonia Continue empiric antibiotic Prophylaxis: heparin/Protonix Result Diagram: 09/20/18 1147 09/20/18 0500 Results 24hrs Laboratory Tests Test 09/19/18 14:06 09/19/18 17:10 09/19/18 17:11 09/19/18 17:12 Bedside Glucose 99 Lactic Acid 1.4 Level Ammonia < 9 L White Blood 13.6 H Count Red Blood Count 5.86 Hemoglobin 13.4 L Hematocrit 42.7 Mean 72.9 L Corpuscular Volume Mean 22.9 L Corpuscular Hemoglobin Mean 31.4 L Corpuscular Hemoglobin Conc ent Red Cell 13.5 Distribution Width Platelet Count 277 Mean Platelet 10.9 H Volume Immature 0.500 H Granulocytes % Neutrophils % 85.6 H Lymphocytes % 7.5 L Monocytes % 6.3 Eosinophils % 0.0 Basophils % 0.1 Nucleated Red 0.0 Blood Cells % Immature 0.070 H Granulocytes # Neutrophils # 11.6 H Lymphocytes # 1.0 Monocytes # 0.9 Eosinophils # 0.0 Basophils # 0.0 Nucleated Red 0.0 Blood Cells # Prothrombin 13.8 Time Prothrombin 1.1 Time Ratio INR 1.05 International Normalized Rati o Activated 35.9 H Partial Thrombo plast Time Fibrinogen 506.0 #H Sodium Level 150 H Potassium Level 4.4 Chloride Level 116 H Carbon Dioxide 22 Level Anion Gap 12 Blood Urea 11 Nitrogen Creatinine 0.60 L Est Glomerular > 60 Filtrat Rate mL/min Glucose Level 133 Calcium Level 9.9 Phosphorus 3.2 Level Magnesium Level 2.3 Troponin I < 0.012 Amylase Level < 30 Lipase 14 L Test 09/19/18 17:15 09/19/18 18:32 09/19/18 22:03 09/19/18 22:20 Blood Gas Blood arterial Specimen Source Arterial Blood 09/19/2018 5:15: Date Drawn 45 PM Arterial Blood 7.422 pH (Temp corrected ) Arterial Blood 35.9 pCO2 (Temp correct) Arterial Blood 74.9 L pO2 (Temp corrected ) Arterial Blood 23.9 HCO3 Arterial Blood -1.5 Base Excess Arterial Blood 97.4 Oxygen Saturati on George Test ACCEPTAB Arterial Blood Right Radial Gas Puncture Site Arterial 0.4 Blood Carboxyhe moglobin Arterial Blood 0.3 Methemoglobin Blood Gas A-a 172.6 H O2 Differential Oxyhemoglobin 96.7 Percent Blood Gas 33.1 Temperature Blood Gas 22.0 Respiration Rate Blood Gas 22 Actual Respiration Rat e Blood Gas VENT - AC Modality FiO2 40.0 Blood Gas Tidal 550.0 Volume Blood Gas Low 5.0 PEEP Setting Blood Gas AT Notified Whom Blood Gas 09/19/2018 5:29: Notified Time 10 PM Bedside Glucose 102 77 White Blood 15.2 H Count Red Blood Count 5.60 Hemoglobin 12.9 L Hematocrit 40.6 L Mean 72.5 L Corpuscular Volume Mean 23.0 L Corpuscular Hemoglobin Mean 31.8 L Corpuscular Hemoglobin Conc ent Red Cell 13.6 Distribution Width Platelet Count 278 Mean Platelet 11.2 H Volume Immature 0.600 H Granulocytes % Neutrophils % 89.8 H Lymphocytes % 6.3 L Monocytes % 3.0 Eosinophils % 0.1 Basophils % 0.2 Nucleated Red 0.0 Blood Cells % Immature 0.090 H Granulocytes # Neutrophils # 13.6 H Lymphocytes # 1.0 Monocytes # 0.5 Eosinophils # 0.0 Basophils # 0.0 Nucleated Red 0.0 Blood Cells # Sodium Level 139 Potassium Level 4.3 Chloride Level 106 # Carbon Dioxide 26 Level Anion Gap 7 Blood Urea 11 Nitrogen Creatinine 0.54 L Est Glomerular > 60 Filtrat Rate mL/min Glucose Level 193 Lactic Acid 1.2 Level Calcium Level 9.0 Phosphorus 3.2 Level Magnesium Level 2.1 Troponin I < 0.012 Test 09/19/18 22:24 09/19/18 22:45 09/19/18 23:15 09/20/18 02:06 Bedside Glucose 172 143 77 Blood Gas Blood arterial Specimen Source Arterial Blood 09/19/2018 11:15 Date Drawn :28 PM Arterial Blood 7.451 H pH (Temp corrected ) Arterial Blood 35.7 pCO2 (Temp correct) Arterial Blood 86.6 pO2 (Temp corrected ) Arterial Blood 25.0 HCO3 Arterial Blood 0.4 Base Excess Arterial Blood 97.0 Oxygen Saturati on George Test ACCEPTAB Arterial Blood Right Radial Gas Puncture Site Arterial 0.1 Blood Carboxyhe moglobin Arterial Blood 0.2 Methemoglobin Blood Gas A-a 160.4 H O2 Differential Oxyhemoglobin 96.7 Percent Blood Gas 34.2 Temperature Blood Gas 22.0 Respiration Rate Blood Gas 22 Actual Respiration Rat e Blood Gas VENT - AC Modality FiO2 40.0 Blood Gas Tidal 550.0 Volume Blood Gas Low 5.0 PEEP Setting Blood Gas 27.0 Inspiratory Pressure Blood Gas MG Notified Whom Blood Gas 09/19/2018 11:33 Notified Time :48 PM Test 09/20/18 02:10 09/20/18 02:31 09/20/18 02:47 09/20/18 04:22 Prothrombin 14.1 Time Prothrombin 1.1 Time Ratio INR 1.08 International Normalized Rati o Activated 33.7 Partial Thrombo plast Time Fibrinogen 417.0 # Amylase Level 35 Lipase 18 L Bedside Glucose 102 99 60 L Test 09/20/18 04:41 09/20/18 04:56 09/20/18 05:00 09/20/18 06:00 Bedside Glucose 170 127 White Blood 18.3 #H Count Red Blood Count 5.32 Hemoglobin 12.2 L Hematocrit 38.3 L Mean 72.0 L Corpuscular Volume Mean 22.9 L Corpuscular Hemoglobin Mean 31.9 L Corpuscular Hemoglobin Conc ent Red Cell 13.7 Distribution Width Platelet Count 268 Mean Platelet 11.1 H Volume Immature 0.500 H Granulocytes % Neutrophils % 87.9 H Lymphocytes % 7.0 L Monocytes % 4.2 Eosinophils % 0.2 Basophils % 0.2 Nucleated Red 0.0 Blood Cells % Immature 0.090 H Granulocytes # Neutrophils # 16.1 H Lymphocytes # 1.3 Monocytes # 0.8 Eosinophils # 0.0 Basophils # 0.0 Nucleated Red 0.0 Blood Cells # Activated 34.1 Partial Thrombo plast Time Sodium Level 142 Potassium Level 3.8 Chloride Level 109 Carbon Dioxide 26 Level Anion Gap 7 Blood Urea 10 Nitrogen Creatinine 0.65 Est Glomerular > 60 Filtrat Rate mL/min Glucose Level 199 Lactic Acid 1.2 Level Calcium Level 8.5 Phosphorus 2.5 Level Magnesium Level 2.1 Creatine Kinase 788 H Troponin I < 0.012 Blood Gas Blood Specimen arterial Source Arterial Blood 09/20/2018 5:40 Date Drawn :34 AM Arterial Blood 7.428 pH (Temp corrected ) Arterial Blood 38.5 pCO2 (Temp correct) Arterial Blood 75.3 L pO2 (Temp corrected ) Arterial Blood 25.2 HCO3 Arterial Blood 0.5 Base Excess Arterial Blood 96.4 Oxygen Saturati on George Test ACCEPTAB Arterial Blood Right Radial Gas Puncture Site Arterial 0.3 Blood Carboxyhe moglobin Arterial Blood 0.2 Methemoglobin Blood Gas A-a 130.6 H O2 Differential Oxyhemoglobin 95.9 Percent Blood Gas 35.8 Temperature Blood Gas 22.0 Respiration Rate Blood Gas 22 Actual Respiration Rat e Blood Gas VENT - AC Modality FiO2 35.0 Blood Gas Tidal 550.0 Volume Blood Gas Low 5.0 PEEP Setting Blood Gas D [facility] Notified Whom Blood Gas 09/20/2018 5:50 Notified Time :19 AM Test 09/20/18 06:03 09/20/18 07:55 09/20/18 07:58 09/20/18 11:47 Bedside Glucose 90 77 92 White Blood 20.6 H Count Red Blood Count 5.45 Hemoglobin 12.5 L Hematocrit 39.1 L Mean 71.7 L Corpuscular Volume Mean 22.9 L Corpuscular Hemoglobin Mean 32.0 Corpuscular Hemoglobin Conc ent Red Cell 14.2 Distribution Width Platelet Count 289 Mean Platelet 11.0 H Volume Immature 0.600 H Granulocytes % Neutrophils % 93.6 H Lymphocytes % 3.0 L Monocytes % 2.7 Eosinophils % 0.0 Basophils % 0.1 Nucleated Red 0.0 Blood Cells % Immature 0.130 H Granulocytes # Neutrophils # 19.3 H Lymphocytes # 0.6 L Monocytes # 0.6 Eosinophils # 0.0 Basophils # 0.0 Nucleated Red 0.0 Blood Cells # Test 09/20/18 11:58 Bedside Glucose 75 Subjective 24 Hr Interval Summary Subjective hx not possible: pt non-verbal Exam/Review of Systems Exam Vitals Vital Signs Date Temp Pulse Resp B/P (MAP) Pulse Ox O2 O2 Flow FiO2 Time Delivery Rate 09/20/18 98.6 107 18 128/74 100 Mechanical 11:00 (92) Ventilator 09/20/18 35 08:00 Intake and Output 09/19/18 09/19/18 09/20/18 1515:00 23:00 07:00 IntakeIntake Total 672.04 ml 792.54 ml 1335.94 ml OutputOutput Total 447 ml 376 ml 228 ml BalanceBalance 225.04 ml 416.54 ml 1107.94 ml Constitutional: non-verbal ENMT: intubated Respiratory: clear to auscultation Cardiovascular: regular rate and rhythm Gastrointestinal: soft; No distended Musculoskeletal: nl extremities to inspection Results Results 24hrs Laboratory Tests Test 09/19/18 14:06 09/19/18 17:10 09/19/18 17:11 09/19/18 17:12 Bedside Glucose 99 Lactic Acid 1.4 Level Ammonia < 9 L White Blood 13.6 H Count Red Blood Count 5.86 Hemoglobin 13.4 L Hematocrit 42.7 Mean 72.9 L Corpuscular Volume Mean 22.9 L Corpuscular Hemoglobin Mean 31.4 L Corpuscular Hemoglobin Conc ent Red Cell 13.5 Distribution Width Platelet Count 277 Mean Platelet 10.9 H Volume Immature 0.500 H Granulocytes % Neutrophils % 85.6 H Lymphocytes % 7.5 L Monocytes % 6.3 Eosinophils % 0.0 Basophils % 0.1 Nucleated Red 0.0 Blood Cells % Immature 0.070 H Granulocytes # Neutrophils # 11.6 H Lymphocytes # 1.0 Monocytes # 0.9 Eosinophils # 0.0 Basophils # 0.0 Nucleated Red 0.0 Blood Cells # Prothrombin 13.8 Time Prothrombin 1.1 Time Ratio INR 1.05 International Normalized Rati o Activated 35.9 H Partial Thrombo plast Time Fibrinogen 506.0 #H Sodium Level 150 H Potassium Level 4.4 Chloride Level 116 H Carbon Dioxide 22 Level Anion Gap 12 Blood Urea 11 Nitrogen Creatinine 0.60 L Est Glomerular > 60 Filtrat Rate mL/min Glucose Level 133 Calcium Level 9.9 Phosphorus 3.2 Level Magnesium Level 2.3 Troponin I < 0.012 Amylase Level < 30 Lipase 14 L Test 09/19/18 17:15 09/19/18 18:32 09/19/18 22:03 09/19/18 22:20 Blood Gas Blood arterial Specimen Source Arterial Blood 09/19/2018 5:15: Date Drawn 45 PM Arterial Blood 7.422 pH (Temp corrected ) Arterial Blood 35.9 pCO2 (Temp correct) Arterial Blood 74.9 L pO2 (Temp corrected ) Arterial Blood 23.9 HCO3 Arterial Blood -1.5 Base Excess Arterial Blood 97.4 Oxygen Saturati on George Test ACCEPTAB Arterial Blood Right Radial Gas Puncture Site Arterial 0.4 Blood Carboxyhe moglobin Arterial Blood 0.3 Methemoglobin Blood Gas A-a 172.6 H O2 Differential Oxyhemoglobin 96.7 Percent Blood Gas 33.1 Temperature Blood Gas 22.0 Respiration Rate Blood Gas 22 Actual Respiration Rat e Blood Gas VENT - AC Modality FiO2 40.0 Blood Gas Tidal 550.0 Volume Blood Gas Low 5.0 PEEP Setting Blood Gas AT Notified Whom Blood Gas 09/19/2018 5:29: Notified Time 10 PM Bedside Glucose 102 77 White Blood 15.2 H Count Red Blood Count 5.60 Hemoglobin 12.9 L Hematocrit 40.6 L Mean 72.5 L Corpuscular Volume Mean 23.0 L Corpuscular Hemoglobin Mean 31.8 L Corpuscular Hemoglobin Conc ent Red Cell 13.6 Distribution Width Platelet Count 278 Mean Platelet 11.2 H Volume Immature 0.600 H Granulocytes % Neutrophils % 89.8 H Lymphocytes % 6.3 L Monocytes % 3.0 Eosinophils % 0.1 Basophils % 0.2 Nucleated Red 0.0 Blood Cells % Immature 0.090 H Granulocytes # Neutrophils # 13.6 H Lymphocytes # 1.0 Monocytes # 0.5 Eosinophils # 0.0 Basophils # 0.0 Nucleated Red 0.0 Blood Cells # Sodium Level 139 Potassium Level 4.3 Chloride Level 106 # Carbon Dioxide 26 Level Anion Gap 7 Blood Urea 11 Nitrogen Creatinine 0.54 L Est Glomerular > 60 Filtrat Rate mL/min Glucose Level 193 Lactic Acid 1.2 Level Calcium Level 9.0 Phosphorus 3.2 Level Magnesium Level 2.1 Troponin I < 0.012 Test 09/19/18 22:24 09/19/18 22:45 09/19/18 23:15 09/20/18 02:06 Bedside Glucose 172 143 77 Blood Gas Blood arterial Specimen Source Arterial Blood 09/19/2018 11:15 Date Drawn :28 PM Arterial Blood 7.451 H pH (Temp corrected ) Arterial Blood 35.7 pCO2 (Temp correct) Arterial Blood 86.6 pO2 (Temp corrected ) Arterial Blood 25.0 HCO3 Arterial Blood 0.4 Base Excess Arterial Blood 97.0 Oxygen Saturati on George Test ACCEPTAB Arterial Blood Right Radial Gas Puncture Site Arterial 0.1 Blood Carboxyhe moglobin Arterial Blood 0.2 Methemoglobin Blood Gas A-a 160.4 H O2 Differential Oxyhemoglobin 96.7 Percent Blood Gas 34.2 Temperature Blood Gas 22.0 Respiration Rate Blood Gas 22 Actual Respiration Rat e Blood Gas VENT - AC Modality FiO2 40.0 Blood Gas Tidal 550.0 Volume Blood Gas Low 5.0 PEEP Setting Blood Gas 27.0 Inspiratory Pressure Blood Gas MG Notified Whom Blood Gas 09/19/2018 11:33 Notified Time :48 PM Test 09/20/18 02:10 09/20/18 02:31 09/20/18 02:47 09/20/18 04:22 Prothrombin 14.1 Time Prothrombin 1.1 Time Ratio INR 1.08 International Normalized Rati o Activated 33.7 Partial Thrombo plast Time Fibrinogen 417.0 # Amylase Level 35 Lipase 18 L Bedside Glucose 102 99 60 L Test 09/20/18 04:41 09/20/18 04:56 09/20/18 05:00 09/20/18 06:00 Bedside Glucose 170 127 White Blood 18.3 #H Count Red Blood Count 5.32 Hemoglobin 12.2 L Hematocrit 38.3 L Mean 72.0 L Corpuscular Volume Mean 22.9 L Corpuscular Hemoglobin Mean 31.9 L Corpuscular Hemoglobin Conc ent Red Cell 13.7 Distribution Width Platelet Count 268 Mean Platelet 11.1 H Volume Immature 0.500 H Granulocytes % Neutrophils % 87.9 H Lymphocytes % 7.0 L Monocytes % 4.2 Eosinophils % 0.2 Basophils % 0.2 Nucleated Red 0.0 Blood Cells % Immature 0.090 H Granulocytes # Neutrophils # 16.1 H Lymphocytes # 1.3 Monocytes # 0.8 Eosinophils # 0.0 Basophils # 0.0 Nucleated Red 0.0 Blood Cells # Activated 34.1 Partial Thrombo plast Time Sodium Level 142 Potassium Level 3.8 Chloride Level 109 Carbon Dioxide 26 Level Anion Gap 7 Blood Urea 10 Nitrogen Creatinine 0.65 Est Glomerular > 60 Filtrat Rate mL/min Glucose Level 199 Lactic Acid 1.2 Level Calcium Level 8.5 Phosphorus 2.5 Level Magnesium Level 2.1 Creatine Kinase 788 H Troponin I < 0.012 Blood Gas Blood Specimen arterial Source Arterial Blood 09/20/2018 5:40 Date Drawn :34 AM Arterial Blood 7.428 pH (Temp corrected ) Arterial Blood 38.5 pCO2 (Temp correct) Arterial Blood 75.3 L pO2 (Temp corrected ) Arterial Blood 25.2 HCO3 Arterial Blood 0.5 Base Excess Arterial Blood 96.4 Oxygen Saturati on George Test ACCEPTAB Arterial Blood Right Radial Gas Puncture Site Arterial 0.3 Blood Carboxyhe moglobin Arterial Blood 0.2 Methemoglobin Blood Gas A-a 130.6 H O2 Differential Oxyhemoglobin 95.9 Percent Blood Gas 35.8 Temperature Blood Gas 22.0 Respiration Rate Blood Gas 22 Actual Respiration Rat e Blood Gas VENT - AC Modality FiO2 35.0 Blood Gas Tidal 550.0 Volume Blood Gas Low 5.0 PEEP Setting Blood Gas D [facility] Notified Whom Blood Gas 09/20/2018 5:50 Notified Time :19 AM Test 09/20/18 06:03 09/20/18 07:55 09/20/18 07:58 09/20/18 11:47 Bedside Glucose 90 77 92 White Blood 20.6 H Count Red Blood Count 5.45 Hemoglobin 12.5 L Hematocrit 39.1 L Mean 71.7 L Corpuscular Volume Mean 22.9 L Corpuscular Hemoglobin Mean 32.0 Corpuscular Hemoglobin Conc ent Red Cell 14.2 Distribution Width Platelet Count 289 Mean Platelet 11.0 H Volume Immature 0.600 H Granulocytes % Neutrophils % 93.6 H Lymphocytes % 3.0 L Monocytes % 2.7 Eosinophils % 0.0 Basophils % 0.1 Nucleated Red 0.0 Blood Cells % Immature 0.130 H Granulocytes # Neutrophils # 19.3 H Lymphocytes # 0.6 L Monocytes # 0.6 Eosinophils # 0.0 Basophils # 0.0 Nucleated Red 0.0 Blood Cells # Test 09/20/18 11:58 Bedside Glucose 75 Medications Medication Current Medications Ondansetron HCl (Zofran Inj) 4 mg Q6H PRN IV NAUSEA AND/OR VOMITING; Start 09/18/18 at 15:00 Pantoprazole (Protonix Iv) 40 mg DAILY@06 IV Last administered on 09/20/18at 05:28; Admin Dose 40 MG; Start 09/19/18 at 06:00 Piperacillin Sod/ Tazobactam Sod 100 ml @ 200 mls/hr Q8 IVPB Last administered on 09/20/18at 05:28; Admin Dose 200 MLS/HR; Start 09/18/18 at 14:44 Acetaminophen (Tylenol Supp) 650 mg Q4H PRN TN TEMP > 37C Last administered on 09/18/18at 17:43; Admin Dose 650 MG; Start 09/18/18 at 17:30 Acetaminophen (Tylenol Liquid) 650 mg Q4H PRN PO TEMP > 37C; Start 09/18/18 at 17:30 Acetaminophen (Tylenol Supp) 500 mg Q6H TN Last administered on 09/20/18 05:27; Admin Dose 500 MG; Start 09/19/18 at 17:30 Acetaminophen (Tylenol Liquid) 500 mg Q6H PO Last administered on 09/20/18 05:26; Admin Dose 500 MG; Start 09/19/18 at 17:30 Meperidine HCl (Demerol) 12.5 mg Q4H PRN IV POST OPERATIVE SHIVERING; Start 09/18/18 at 17:30 Meperidine HCl (Demerol) 25 mg Q4H PRN IV POST OPERATIVE SHIVERING Last administered on 09/18/18 18:26; Admin Dose 25 MG; Start 09/18/18 at 17:30 Eye Lubricant (Artificial Tears Oph) 2 drop Q6 BOTH EYES Last administered on 09/20/18 05:44; Admin Dose 2 DROP; Start 09/18/18 at 18:00 Propofol 100 ml @ 2.181 mls/ hr TITRATE IV Last administered on 09/20/18 11:00; Admin Dose 2.181 MLS/HR; Start 09/18/18 at 23:30 Insulin Human Regular 100 unit/ Sodium Chloride 100 ml @ 0 mls/hr PER PROTOCOL IV ; Start 09/19/18 at 00:45 Miscellaneous Information (* Miscellaneous Pharmacy Order) Treatment of Hypoglycemia: 1.BG 51... Per protocol XX ; Start 09/19/18 at 00:00 Dextrose (D50w Syringe) 25 ml Q15M PRN IV .DECREASED GLUCOSE Last administered on 09/20/18 02:11; Admin Dose 25 ML; Start 09/19/18 at 00:00 Dextrose (D50w Syringe) 50 ml Q15M PRN IV .DECREASED GLUCOSE Last administered on 09/20/18 04:25; Admin Dose 50 ML; Start 09/19/18 at 00:00 Eye Lubricant ([place] Oint) 1 applic Q6 BOTH EYES Last administered on 09/20/18 05:44; Admin Dose 1 APPLIC; Start 09/19/18 at 00:43 Vecuronium [place] 100 mg/ Dextrose 100 ml @ 0 mls/hr TITRATE IV Last administered on 09/19/18 03:00; Admin Dose 3.6 MLS/HR; Start 09/19/18 at 03:00 Midazolam HCl 50 ml @ 1 mls/hr TITRATE IV Last administered on 09/20/18 07:42; Admin Dose 5 MLS/HR; Start 09/19/18 at 04:30 Fentanyl 100 ml @ 2.5 mls/hr TITRATE IV Last administered on 09/20/18 11:54; Admin Dose 10 MLS/HR; Start 09/19/18 at 14:00 Vancomycin HCl (Vanco Iv Per Pharmacy) VANCOMYCIN PER PHARMACY PER PROTOCOL XX ; Start 09/20/18 at 00:30 Vancomycin HCl 250 ml @ 125 mls/hr Q8H IVPB Last administered on 09/20/18 08:58; Admin Dose 125 MLS/HR; Start 09/20/18 at 09:00 Dextrose/Sodium Chloride 1,000 ml @ 80 mls/hr [id number] IV Last administered on 09/20/18 02:34; Admin Dose 80 MLS/HR; Start 09/20/18 at 03:30 Albuterol (Ventolin Hfa) 4 puff Q6H RESP THERAPY INH Last administered on 09/20/18 08:46; Admin Dose 4 PUFF; Start 09/20/18 at 08:30 Ipratropium [place] (Atrovent Hfa) 4 puff Q6H RESP THERAPY INH Last administered on 09/20/18 08:46; Admin Dose 4 PUFF; Start 09/20/18 at 08:30 Methylprednisolone Sodium Succinate (Solu-Medrol) 40 mg Q8 IV Last administered on 09/20/18 09:30; Admin Dose 40 MG; Start 09/20/18 at 09:30 Diagnostic Test (Pha) (Accu-Chek) 1 ea Q4H XX Last administered on 09/20/18 12:01; Admin Dose 1 EA; Start 09/20/18 at 12:00 AMEYA MCCORD Sep 20, 2018 12:22
--- NOTE | 2018-09-20 17:59 | RADRPT ---
Vent Rate: 95 bpm RR Interval: 0 msec MA Interval: 174 msec QRS Duration: 98 msec QT Interval: 428 msec QTC Interval: 537 msec P-R-T [place]: 67 - 61 - 54 degrees Normal sinus rhythm Right atrial enlargement Prolonged QT Abnormal ECG Electronically Signed By: Omer Smith
--- NOTE | 2018-09-20 18:04 | RADRPT ---
Vent Rate: 53 bpm RR Interval: 0 msec SD Interval: 162 msec QRS Duration: 110 msec QT Interval: 556 msec QTC Interval: 521 msec P-R-T [place]: 83 - 67 - 71 degrees Sinus bradycardia Incomplete right bundle branch block Prolonged QT Abnormal ECG Electronically Signed By: Omer Smith
[2018-09-21] VITALS (43 sets, daily range): BP systolic 91–113; BP diastolic 55–76; PULSE 52–93; RESP 3–21
[2018-09-21] MEDS: ACCU-CHEK XX SCH ×6 (00:15→20:00)
[2018-09-21] MEDS: OCULAR LUBRICANT 3.5 GM OPH OINT BOTH EYES SCH ×4 (00:22→18:36)
[2018-09-21] MEDS: ARTIFICIAL TEARS 15 ML OPH BOTH EYES SCH ×4 (00:22→18:36)
[2018-09-21] MEDS: IPRATROPIUM (HFA) 12.9 GM INHALER INH SCH ×2 (01:38→19:48)
[2018-09-21] MEDS: ALBUTEROL HFA 8 GM INHALER INH SCH ×2 (01:38→19:48)
[2018-09-21] MEDS: VANCOMYCIN 1 GM 250 ML IVPB SCH ×3 (01:52→18:35)
[2018-09-21] MEDS: FENTAnyl (DRIP) 1000 mcg/100mL 100 ML IV SCH ×2 (02:17→12:24)
[2018-09-21] MEDS: MIDAZOLAM (DRIP) 50 mg/50 mL 50 ML IV SCH ×2 (02:25→08:07)
[2018-09-21] MEDS: ACETAMINOPHEN 650 MG SUPP PR SCH (04:39)
[2018-09-21] MEDS: ACETAMINOPHEN 650MG/20.3ML CUP PO SCH ×4 (04:40→23:08)
[2018-09-21] MEDS: PANTOPRAZOLE 40 MG INJ IV SCH (05:02)
[2018-09-21] MEDS: PIPER-TAZO 3.375 GM IV (PMX) 100 ML IVPB SCH ×3 (05:02→21:44)
[2018-09-21] MEDS: METHYLPREDNISOLONE 40 MG INJ IV SCH ×3 (05:02→21:44)
--- NOTE | 2018-09-21 09:27 | CONS ---
Assessment/Plan Assessment/Plan Assessment/Plan (Daily) Chest x-ray was reviewed from today which is totally clear. Ventilator setting; AC of 18, tidal volume 550, PEEP of 5, 35% FiO2. Assessment and recommendations; 1. Patient admitted with cardiac arrest due to drug overdose that is post hypothermia protocol still requiring sedation. 2. At this point difficult to assess for any anoxic brain injury. 3. History of asthma with bronchospasm. Started on systemic steroids and bronchodilator regimen. 4. Gram-positive bacteremia, currently on appropriate antimicrobial regimen. 5. Anemia. Given sedation vacation trial again to assess mental status. Continue other supportive measures. Decrease FiO2 30%. Start tube feeding. Prognosis is guarded and depends entirely upon adequate mental status recovery. 35 minutes of critical care time was spent evaluating the patient. Consultation Date/Type/Reason Admit Date/Time Sep 18, 2018 at 12:38 Initial Consult Date 09/19/18 Type of Consult Pulmonary/critical care Patient is a 43-year-old male who was brought into the hospital after he was found down on [address]. On-site CPR was done with revival of vital signs. Patient has been admitted to ICU and is currently on hypothermia protocol. Past medical history; unremarkable perhaps except for drug abuse. Medications; were reviewed. Patient is currently on fentanyl 70 mics per hour, Versed 6 mg/h, patient is on hypothermia protocol. Other medications were reviewed. Allergies; not available. Social history, positive for drug abuse. Family history; not available. Occupational history; not available. Review of system; unable to be obtained. General exam; young male, orally intubated, sedated and paralyzed. Requesting Provider: REBEKAH DUMONT Date/Time of Note DATE: 09/21/18 TIME: 09:24 24 HR Interval Summary Free Text/Dictation Patient's condition is critical. Patient is off hypothermia protocol. Was given a sedation vacation last night but patient exhibited agitation and had to be resumed back on sedation. Patient however has remained hemodynamically stable. General exam; young male, orally intubated, sedated, currently in no distress. Exam/Review of Systems Exam Vitals Vital Signs Date Temp Pulse Resp B/P (MAP) Pulse Ox O2 O2 Flow FiO2 Time Delivery Rate 09/21/18 35 08:00 09/21/18 70 18 96/60 (72) 100 Mechanical 08:00 Ventilator 09/21/18 98.0 07:00 Intake and Output 09/20/18 09/20/18 09/21/18 1515:00 23:00 07:00 IntakeIntake Total 857.948 ml 927.982 ml 1105.430 ml OutputOutput Total 385 ml 482 ml 356 ml BalanceBalance 472.948 ml 445.982 ml 749.430 ml Exam H EENT exam; supple neck, no JVD. No lymphadenopathy. Midline trachea. No thyromegaly. Patient has good dentition. Pupils are midsize and reactive to light. Orally intubated. Chest exam; diminished breath sounds bilaterally with mild wheezing. S1-S2 audible, no murmurs. Regular rhythm. Abdomen exam; soft, no organomegaly. Bowel sounds audible. Nondistended. Extremity exam; no peripheral edema clubbing. SERVER ASSISTANT exam; patient is sedated. Results Result Diagram: 09/21/18 0415 09/21/18 0415 Results 24hrs Laboratory Tests Test 09/20/18 11:47 09/20/18 11:58 09/20/18 14:03 09/20/18 16:05 White Blood Count 20.6 H Red Blood Count 5.45 Hemoglobin 12.5 L Hematocrit 39.1 L Mean Corpuscular 71.7 L Volume Mean Corpuscular 22.9 L Hemoglobin Mean Corpuscular 32.0 Hemoglobin Concent Red Cell 14.2 Distribution Width Platelet Count 289 Mean Platelet Volume 11.0 H Immature 0.600 H Granulocytes % Neutrophils % 93.6 H Lymphocytes % 3.0 L Monocytes % 2.7 Eosinophils % 0.0 Basophils % 0.1 Nucleated Red Blood 0.0 Cells % Immature 0.130 H Granulocytes # Neutrophils # 19.3 H Lymphocytes # 0.6 L Monocytes # 0.6 Eosinophils # 0.0 Basophils # 0.0 Nucleated Red Blood 0.0 Cells # Sodium Level 144 Potassium Level 4.4 Chloride Level 112 H Carbon Dioxide Level 28 Anion Gap 4 L Blood Urea Nitrogen 9 Creatinine 0.79 Est Glomerular > 60 Filtrat Rate mL/min Glucose Level 91 # Lactic Acid Level 0.8 Calcium Level 8.4 Phosphorus Level 1.6 L Magnesium Level 1.9 Troponin I < 0.012 Bedside Glucose 75 102 Prothrombin Time 14.9 Prothrombin Time 1.2 Ratio INR International 1.16 Normalized Ratio Activated 33.3 Partial Thromboplast Time Fibrinogen 432.0 Amylase Level 42 Lipase 26 Test 09/20/18 16:57 09/20/18 20:11 09/20/18 20:44 09/20/18 23:20 White Blood Count 18.0 H 14.9 H Red Blood Count 5.03 4.75 Hemoglobin 11.6 L 10.9 L Hematocrit 36.4 L 34.7 L Mean Corpuscular 72.4 L 73.1 L Volume Mean Corpuscular 23.1 L 22.9 L Hemoglobin Mean Corpuscular 31.9 L 31.4 L Hemoglobin Concent Red Cell 14.1 13.8 Distribution Width Platelet Count 277 255 Mean Platelet Volume 11.1 H 11.0 H Immature 0.400 0.600 H Granulocytes % Neutrophils % 95.6 H 90.6 H Lymphocytes % 3.2 L 5.8 L Monocytes % 0.7 2.9 Eosinophils % 0.0 0.0 Basophils % 0.1 0.1 Nucleated Red Blood 0.0 0.0 Cells % Immature 0.070 H 0.090 H Granulocytes # Neutrophils # 17.2 H 13.5 H Lymphocytes # 0.6 L 0.9 Monocytes # 0.1 L 0.4 Eosinophils # 0.0 0.0 Basophils # 0.0 0.0 Nucleated Red Blood 0.0 0.0 Cells # Sodium Level 142 140 Potassium Level 4.4 4.5 Chloride Level 113 H 112 H Carbon Dioxide Level 26 27 Anion Gap 3 L 1 L Blood Urea Nitrogen 10 11 Creatinine 0.72 0.69 Est Glomerular > 60 > 60 Filtrat Rate mL/min Glucose Level 124 113 Lactic Acid Level 1.0 0.8 Calcium Level 8.3 L 8.3 L Phosphorus Level 2.8 3.0 Magnesium Level 2.0 2.0 Troponin I < 0.012 < 0.012 Activated 31.4 Partial Thromboplast Time Bedside Glucose 94 Test 09/21/18 00:14 09/21/18 00:20 09/21/18 03:54 09/21/18 04:15 Bedside Glucose 108 100 Vancomycin Level 12.6 Trough White Blood Count 14.2 H Red Blood Count 4.65 L Hemoglobin 10.7 L Hematocrit 33.8 L Mean Corpuscular 72.7 L Volume Mean Corpuscular 23.0 L Hemoglobin Mean Corpuscular 31.7 L Hemoglobin Concent Red Cell 14.2 Distribution Width Platelet Count 266 Mean Platelet Volume 11.8 H Immature 0.600 H Granulocytes % Neutrophils % 89.6 H Lymphocytes % 7.0 L Monocytes % 2.7 Eosinophils % 0.0 Basophils % 0.1 Nucleated Red Blood 0.0 Cells % Immature 0.090 H Granulocytes # Neutrophils # 12.7 H Lymphocytes # 1.0 Monocytes # 0.4 Eosinophils # 0.0 Basophils # 0.0 Nucleated Red Blood 0.0 Cells # Activated 34.9 Partial Thromboplast Time Sodium Level 143 Potassium Level 4.7 Chloride Level 112 H Carbon Dioxide Level 28 Anion Gap 3 L Blood Urea Nitrogen 13 Creatinine 0.72 Est Glomerular > 60 Filtrat Rate mL/min Glucose Level 103 Lactic Acid Level 0.9 Calcium Level 8.6 Phosphorus Level 3.6 Magnesium Level 2.1 Test 09/21/18 04:34 09/21/18 07:37 Troponin I < 0.012 Bedside Glucose 131 Medications Medication Current Medications Ondansetron HCl (Zofran Inj) 4 mg Q6H PRN IV NAUSEA AND/OR VOMITING; Start 09/18/18 at 15:00 Pantoprazole (Protonix Iv) 40 mg DAILY@06 IV Last administered on 09/21/18 05:02; Admin Dose 40 MG; Start 09/19/18 at 06:00 Piperacillin Sod/ Tazobactam Sod 100 ml @ 200 mls/hr Q8 IVPB Last administered on 09/21/18 05:02; Admin Dose 200 MLS/HR; Start 09/18/18 at 14:44 Acetaminophen (Tylenol Liquid) 500 mg Q6H PO Last administered on 09/20/18at 11:30; Admin Dose 500 MG; Start 09/19/18 at 17:30 Meperidine HCl (Demerol) 12.5 mg Q4H PRN IV POST OPERATIVE SHIVERING; Start 09/18/18 at 17:30 Meperidine HCl (Demerol) 25 mg Q4H PRN IV POST OPERATIVE SHIVERING Last administered on 09/18/18at 18:26; Admin Dose 25 MG; Start 09/18/18 at 17:30 Eye Lubricant (Artificial Tears Oph) 2 drop Q6 BOTH EYES Last administered on 09/21/18at 09:15; Admin Dose 2 DROP; Start 09/18/18 at 18:00 Propofol 100 ml @ 2.181 mls/ hr TITRATE IV Last administered on 09/20/18 11:00; Admin Dose 2.181 MLS/HR; Start 09/18/18 at 23:30 Insulin Human Regular 100 unit/ Sodium Chloride 100 ml @ 0 mls/hr PER PROTOCOL IV ; Start 09/19/18 at 00:45 Miscellaneous Information (* Miscellaneous Pharmacy Order) Treatment of Hypoglycemia: 1.BG 51... Per protocol XX ; Start 09/19/18 at 00:00 Dextrose (D50w Syringe) 25 ml Q15M PRN IV .DECREASED GLUCOSE Last administered on 09/20/18 02:11; Admin Dose 25 ML; Start 09/19/18 at 00:00 Dextrose (D50w Syringe) 50 ml Q15M PRN IV .DECREASED GLUCOSE Last administered on 09/20/18 04:25; Admin Dose 50 ML; Start 09/19/18 at 00:00 Eye Lubricant ([place] Oint) 1 applic Q6 BOTH EYES Last administered on 09/21/18 09:16; Admin Dose 1 APPLIC; Start 09/19/18 at 00:43 Vecuronium [place] 100 mg/ Dextrose 100 ml @ 0 mls/hr TITRATE IV Last administered on 09/19/18 03:00; Admin Dose 3.6 MLS/HR; Start 09/19/18 at 03:00 Midazolam HCl 50 ml @ 1 mls/hr TITRATE IV Last administered on 09/21/18 08:07; Admin Dose 8 MLS/HR; Start 09/19/18 at 04:30 Fentanyl 100 ml @ 2.5 mls/hr TITRATE IV Last administered on 09/21/18 02:17; Admin Dose 10 MLS/HR; Start 09/19/18 at 14:00 Vancomycin HCl (Vanco Iv Per Pharmacy) VANCOMYCIN PER PHARMACY PER PROTOCOL XX ; Start 09/20/18 at 00:30 Vancomycin HCl 250 ml @ 125 mls/hr Q8H IVPB Last administered on 09/21/18 08:01; Admin Dose 125 MLS/HR; Start 09/20/18 at 09:00 Dextrose/Sodium Chloride 1,000 ml @ 80 mls/hr [id number] IV Last administered on 09/20/18 19:00; Admin Dose 80 MLS/HR; Start 09/20/18 at 03:30 Albuterol (Ventolin Hfa) 4 puff Q6H RESP THERAPY INH Last administered on 09/21/18 01:38; Admin Dose 4 PUFF; Start 09/20/18 at 08:30 Ipratropium [place] (Atrovent Hfa) 4 puff Q6H RESP THERAPY INH Last administered on 09/21/18 01:38; Admin Dose 4 PUFF; Start 09/20/18 at 08:30 Methylprednisolone Sodium Succinate (Solu-Medrol) 40 mg Q8 IV Last administered on 09/21/18 05:02; Admin Dose 40 MG; Start 09/20/18 at 09:30 Diagnostic Test (Pha) (Accu-Chek) 1 ea Q4H XX Last administered on 09/21/18 07:37; Admin Dose 1 EA; Start 09/20/18 at 12:00 ISRRAEL CAICEDO Sep 21, 2018 09:27
--- NOTE | 2018-09-21 09:41 | CONS ---
Assessment/Plan Assessment/Plan Hospital Course 43 yo M with hx of polysubstance abuse who presents comatose following a cardiac arrest... for which neurology is consulted. TTM was initiated. The pt is currently being rewarmed. His prognosis is guarded. CTH is unrevealing. P: Ok to defer additional neuroimaging for now Cont other medical management per primary Will follow clinically, to recommend neurologic studies, as necessary Consultation Date/Type/Reason Admit Date/Time Sep 18, 2018 at 12:38 Type of Consult Neurology Reason for Consultation coma s/p cardiac arrest Requesting Provider: REBEKAH DUMONT Date/Time of Note DATE: 09/21/18 TIME: 09:40 24 HR Interval Summary Free Text/Dictation Continues critical care. Pt reportedly woke up and sat up in bed yesterday. Today is on propofol, versed, and fentanyl for sedation and pt comfort. Subjective hx not possible: pt non-verbal, pt critical Exam Vital Signs Vitals Vital Signs Date Temp Pulse Resp B/P (MAP) Pulse Ox O2 O2 Flow FiO2 Time Delivery Rate 09/21/18 35 08:00 09/21/18 70 18 96/60 (72) 100 Mechanical 08:00 Ventilator 09/21/18 98.0 07:00 Intake and Output 09/20/18 09/20/18 09/21/18 1515:00 23:00 07:00 IntakeIntake Total 857.948 ml 927.982 ml 1105.430 ml OutputOutput Total 385 ml 482 ml 356 ml BalanceBalance 472.948 ml 445.982 ml 749.430 ml Exam PE: Gen Appearance: No Apparent Distress HEENT: Intubated Cardiovascular: Regular rate Abdomen: Soft Extremities: Dry NE: The patient was obtunded and nonverbal. The pt grimaced to noxious stimuli. Cranial nerve examination was limited by mental status. Pupils were equal, pinpoint, and briskly reactive to light. There was no afferent pupillary defect. Funduscopic examination was limited. Face was grossly symmetric, w/ present corneal and cough reflexes. Tone was normal. Muscle bulk was normal. I did not see fasciculations. The patient withdrew to noxious stimulation in his lower extremities. Coordination and gait testing was limited by mental status. Arm and leg reflexes were within normal limits and symmetric. Boyle's sign was absent. Plantar responses were flexor. AL LEE NP Sep 21, 2018 09:41
[2018-09-21] MEDS: PROPOFOL 100 ML IV SCH (12:22)
[2018-09-21] MEDS: DEXTROSE 5%-0.9% NACL 1,000 ML IV SCH ×2 (17:09→22:45)
--- NOTE | 2018-09-21 17:12 | PN ---
Date/Time of Note Date/Time of Note DATE: 09/21/18 TIME: 17:10 Assessment/Plan VTE Prophylaxis Risk score (from Ns)>0 risk: 8 SCD applied (from Ns): Yes Pharmacological prophylaxis: heparin Assessment/Plan Hospital Course 43-year-old male who was found unresponsive on the street brought in by EMS 1. Acute toxic metabolic encephalopathy Monitor for ischemic encephalopathy, patient is moving extremities when off sedation Status post hypothermia protocol 2. Accidental overdose 3. Acute respiratory failure secondary to #2 4. Multi-substance abuse 5. Systemic inflammatory response syndrome secondary to #1 6. Status post cardiac arrest with return of spontaneous circulation after resuscitation 7. Severe rhabdomyolysis Monitor 8. Cardiogenic shock with lactic acidosis-resolved 9. High probability of aspiration pneumonia Continue empiric antibiotics On steroids per pulmonology Prophylaxis: heparin/Protonix Result Diagram: 09/21/18 0415 09/21/18 0415 Results 24hrs Laboratory Tests Test 09/20/18 20:11 09/20/18 20:44 09/20/18 23:20 09/21/18 00:14 Activated 31.4 Partial Thromboplast Time Bedside Glucose 94 108 White Blood Count 14.9 H Red Blood Count 4.75 Hemoglobin 10.9 L Hematocrit 34.7 L Mean Corpuscular 73.1 L Volume Mean Corpuscular 22.9 L Hemoglobin Mean Corpuscular 31.4 L Hemoglobin Concent Red Cell 13.8 Distribution Width Platelet Count 255 Mean Platelet Volume 11.0 H Immature 0.600 H Granulocytes % Neutrophils % 90.6 H Lymphocytes % 5.8 L Monocytes % 2.9 Eosinophils % 0.0 Basophils % 0.1 Nucleated Red Blood 0.0 Cells % Immature 0.090 H Granulocytes # Neutrophils # 13.5 H Lymphocytes # 0.9 Monocytes # 0.4 Eosinophils # 0.0 Basophils # 0.0 Nucleated Red Blood 0.0 Cells # Sodium Level 140 Potassium Level 4.5 Chloride Level 112 H Carbon Dioxide Level 27 Anion Gap 1 L Blood Urea Nitrogen 11 Creatinine 0.69 Est Glomerular > 60 Filtrat Rate mL/min Glucose Level 113 Lactic Acid Level 0.8 Calcium Level 8.3 L Phosphorus Level 3.0 Magnesium Level 2.0 Troponin I < 0.012 Test 09/21/18 00:20 09/21/18 03:54 09/21/18 04:15 09/21/18 04:34 Vancomycin Level 12.6 Trough Bedside Glucose 100 White Blood Count 14.2 H Red Blood Count 4.65 L Hemoglobin 10.7 L Hematocrit 33.8 L Mean Corpuscular 72.7 L Volume Mean Corpuscular 23.0 L Hemoglobin Mean Corpuscular 31.7 L Hemoglobin Concent Red Cell 14.2 Distribution Width Platelet Count 266 Mean Platelet Volume 11.8 H Immature 0.600 H Granulocytes % Neutrophils % 89.6 H Lymphocytes % 7.0 L Monocytes % 2.7 Eosinophils % 0.0 Basophils % 0.1 Nucleated Red Blood 0.0 Cells % Immature 0.090 H Granulocytes # Neutrophils # 12.7 H Lymphocytes # 1.0 Monocytes # 0.4 Eosinophils # 0.0 Basophils # 0.0 Nucleated Red Blood 0.0 Cells # Activated 34.9 Partial Thromboplast Time Sodium Level 143 Potassium Level 4.7 Chloride Level 112 H Carbon Dioxide Level 28 Anion Gap 3 L Blood Urea Nitrogen 13 Creatinine 0.72 Est Glomerular > 60 Filtrat Rate mL/min Glucose Level 103 Lactic Acid Level 0.9 Calcium Level 8.6 Phosphorus Level 3.6 Magnesium Level 2.1 Troponin I < 0.012 Test 09/21/18 07:37 09/21/18 12:26 Bedside Glucose 131 100 Subjective 24 Hr Interval Summary Subjective hx not possible: pt non-verbal Exam/Review of Systems Exam Vitals Vital Signs Date Temp Pulse Resp B/P (MAP) Pulse Ox O2 O2 Flow FiO2 Time Delivery Rate 09/21/18 30 16:00 09/21/18 67 16:00 09/21/18 97.8 8 111/66 Mechanical 12:00 (81) Ventilator 09/21/18 100 11:46 Intake and Output 09/20/18 09/20/18 09/21/18 1515:00 23:00 07:00 IntakeIntake Total 857.948 ml 927.982 ml 1204.920 ml OutputOutput Total 385 ml 482 ml 356 ml BalanceBalance 472.948 ml 445.982 ml 848.920 ml Constitutional: non-verbal ENMT: intubated Respiratory: clear to auscultation Cardiovascular: regular rate and rhythm Gastrointestinal: soft; No distended Musculoskeletal: nl extremities to inspection Results Results 24hrs Laboratory Tests Test 09/20/18 20:11 09/20/18 20:44 09/20/18 23:20 09/21/18 00:14 Activated 31.4 Partial Thromboplast Time Bedside Glucose 94 108 White Blood Count 14.9 H Red Blood Count 4.75 Hemoglobin 10.9 L Hematocrit 34.7 L Mean Corpuscular 73.1 L Volume Mean Corpuscular 22.9 L Hemoglobin Mean Corpuscular 31.4 L Hemoglobin Concent Red Cell 13.8 Distribution Width Platelet Count 255 Mean Platelet Volume 11.0 H Immature 0.600 H Granulocytes % Neutrophils % 90.6 H Lymphocytes % 5.8 L Monocytes % 2.9 Eosinophils % 0.0 Basophils % 0.1 Nucleated Red Blood 0.0 Cells % Immature 0.090 H Granulocytes # Neutrophils # 13.5 H Lymphocytes # 0.9 Monocytes # 0.4 Eosinophils # 0.0 Basophils # 0.0 Nucleated Red Blood 0.0 Cells # Sodium Level 140 Potassium Level 4.5 Chloride Level 112 H Carbon Dioxide Level 27 Anion Gap 1 L Blood Urea Nitrogen 11 Creatinine 0.69 Est Glomerular > 60 Filtrat Rate mL/min Glucose Level 113 Lactic Acid Level 0.8 Calcium Level 8.3 L Phosphorus Level 3.0 Magnesium Level 2.0 Troponin I < 0.012 Test 09/21/18 00:20 09/21/18 03:54 09/21/18 04:15 09/21/18 04:34 Vancomycin Level 12.6 Trough Bedside Glucose 100 White Blood Count 14.2 H Red Blood Count 4.65 L Hemoglobin 10.7 L Hematocrit 33.8 L Mean Corpuscular 72.7 L Volume Mean Corpuscular 23.0 L Hemoglobin Mean Corpuscular 31.7 L Hemoglobin Concent Red Cell 14.2 Distribution Width Platelet Count 266 Mean Platelet Volume 11.8 H Immature 0.600 H Granulocytes % Neutrophils % 89.6 H Lymphocytes % 7.0 L Monocytes % 2.7 Eosinophils % 0.0 Basophils % 0.1 Nucleated Red Blood 0.0 Cells % Immature 0.090 H Granulocytes # Neutrophils # 12.7 H Lymphocytes # 1.0 Monocytes # 0.4 Eosinophils # 0.0 Basophils # 0.0 Nucleated Red Blood 0.0 Cells # Activated 34.9 Partial Thromboplast Time Sodium Level 143 Potassium Level 4.7 Chloride Level 112 H Carbon Dioxide Level 28 Anion Gap 3 L Blood Urea Nitrogen 13 Creatinine 0.72 Est Glomerular > 60 Filtrat Rate mL/min Glucose Level 103 Lactic Acid Level 0.9 Calcium Level 8.6 Phosphorus Level 3.6 Magnesium Level 2.1 Troponin I < 0.012 Test 09/21/18 07:37 09/21/18 12:26 Bedside Glucose 131 100 Medications Medication Current Medications Ondansetron HCl (Zofran Inj) 4 mg Q6H PRN IV NAUSEA AND/OR VOMITING; Start 09/18/18 at 15:00 Pantoprazole (Protonix Iv) 40 mg DAILY@06 IV Last administered on 09/21/18 05:02; Admin Dose 40 MG; Start 09/19/18 at 06:00 Piperacillin Sod/ Tazobactam Sod 100 ml @ 200 mls/hr Q8 IVPB Last administered on 09/21/18 05:02; Admin Dose 200 MLS/HR; Start 09/18/18 at 14:44 Acetaminophen (Tylenol Liquid) 500 mg Q6H PO Last administered on 09/20/18 11:30; Admin Dose 500 MG; Start 09/19/18 at 17:30 Meperidine HCl (Demerol) 12.5 mg Q4H PRN IV POST OPERATIVE SHIVERING; Start 09/18/18 at 17:30 Meperidine HCl (Demerol) 25 mg Q4H PRN IV POST OPERATIVE SHIVERING Last administered on 09/18/18 18:26; Admin Dose 25 MG; Start 09/18/18 at 17:30 Eye Lubricant (Artificial Tears Oph) 2 drop Q6 BOTH EYES Last administered on 09/21/18 09:15; Admin Dose 2 DROP; Start 09/18/18 at 18:00 Propofol 100 ml @ 2.181 mls/ hr TITRATE IV Last administered on 09/21/18 12:22; Admin Dose 2.617 MLS/HR; Start 09/18/18 at 23:30 Insulin Human Regular 100 unit/ Sodium Chloride 100 ml @ 0 mls/hr PER PROTOCOL IV ; Start 09/19/18 at 00:45 Miscellaneous Information (* Miscellaneous Pharmacy Order) Treatment of Hypoglycemia: 1.BG 51... Per protocol XX ; Start 09/19/18 at 00:00 Dextrose (D50w Syringe) 25 ml Q15M PRN IV .DECREASED GLUCOSE Last administered on 09/20/18 02:11; Admin Dose 25 ML; Start 09/19/18 at 00:00 Dextrose (D50w Syringe) 50 ml Q15M PRN IV .DECREASED GLUCOSE Last administered on 09/20/18 04:25; Admin Dose 50 ML; Start 09/19/18 at 00:00 Eye Lubricant ([place] Oint) 1 applic Q6 BOTH EYES Last administered on 09/21/18 09:16; Admin Dose 1 APPLIC; Start 09/19/18 at 00:43 Vecuronium [place] 100 mg/ Dextrose 100 ml @ 0 mls/hr TITRATE IV Last administered on 09/19/18 03:00; Admin Dose 3.6 MLS/HR; Start 09/19/18 at 03:00 Midazolam HCl 50 ml @ 1 mls/hr TITRATE IV Last administered on 09/21/18 08:07; Admin Dose 8 MLS/HR; Start 09/19/18 at 04:30 Fentanyl 100 ml @ 2.5 mls/hr TITRATE IV Last administered on 09/21/18 12:24; Admin Dose 10 MLS/HR; Start 09/19/18 at 14:00 Vancomycin HCl (Vanco Iv Per Pharmacy) VANCOMYCIN PER PHARMACY PER PROTOCOL XX ; Start 09/20/18 at 00:30 Vancomycin HCl 250 ml @ 125 mls/hr Q8H IVPB Last administered on 09/21/18 08:01; Admin Dose 125 MLS/HR; Start 09/20/18 at 09:00 Dextrose/Sodium Chloride 1,000 ml @ 80 mls/hr [id number] IV Last administered on 09/21/18 17:09; Admin Dose 80 MLS/HR; Start 09/20/18 at 03:30 Albuterol (Ventolin Hfa) 4 puff Q6H RESP THERAPY INH Last administered on 09/21/18 01:38; Admin Dose 4 PUFF; Start 09/20/18 at 08:30 Ipratropium [place] (Atrovent Hfa) 4 puff Q6H RESP THERAPY INH Last administered on 09/21/18 01:38; Admin Dose 4 PUFF; Start 09/20/18 at 08:30 Methylprednisolone Sodium Succinate (Solu-Medrol) 40 mg Q8 IV Last administered on 09/21/18 05:02; Admin Dose 40 MG; Start 09/20/18 at 09:30 Diagnostic Test (Pha) (Accu-Chek) 1 ea Q4H XX Last administered on 09/21/18at 16:00; Admin Dose 1 EA; Start 09/20/18 at 12:00 AMEYA MCCORD Sep 21, 2018 17:12
[2018-09-22] VITALS (47 sets, daily range): BP systolic 109–147; BP diastolic 69–103; PULSE 46–93; RESP 11–24
[2018-09-22] MEDS: OCULAR LUBRICANT 3.5 GM OPH OINT BOTH EYES SCH ×5 (00:09→23:50)
[2018-09-22] MEDS: ARTIFICIAL TEARS 15 ML OPH BOTH EYES SCH ×5 (00:09→23:50)
[2018-09-22] MEDS: VANCOMYCIN 1 GM 250 ML IVPB SCH ×3 (00:14→16:33)
[2018-09-22] MEDS: ACCU-CHEK XX SCH ×7 (00:15→23:47)
[2018-09-22] MEDS: PROPOFOL 100 ML IV SCH ×3 (01:16→22:55)
[2018-09-22] MEDS: IPRATROPIUM (HFA) 12.9 GM INHALER INH SCH ×4 (04:18→19:24)
[2018-09-22] MEDS: ALBUTEROL HFA 8 GM INHALER INH SCH ×4 (04:19→19:24)
[2018-09-22] MEDS: ACETAMINOPHEN 650MG/20.3ML CUP PO SCH ×4 (04:54→23:03)
[2018-09-22] MEDS: PANTOPRAZOLE 40 MG INJ IV SCH (05:44)
[2018-09-22] MEDS: PIPER-TAZO 3.375 GM IV (PMX) 100 ML IVPB SCH ×3 (05:45→22:05)
[2018-09-22] MEDS: METHYLPREDNISOLONE 40 MG INJ IV SCH ×3 (05:45→22:05)
[2018-09-22] MEDS: FENTAnyl (DRIP) 1000 mcg/100mL 100 ML IV SCH (06:04)
--- NOTE | 2018-09-22 09:37 | CONS ---
Assessment/Plan Assessment/Plan Assessment/Plan (Daily) Ventilator setting; AC of 18, tidal volume 550, PEEP of 5, 35% FiO2. Patient is currently on fentanyl 70 mics per hour, propofol 20 mics per kilogram per minute. Assessment and recommendations; 1. Patient admitted with cardiac arrest status post hypothermia protocol, currently sedated because of agitation. 2. At this point difficult to assess for any anoxic brain injury. 3. History of asthma with acute bronchospasm, clinically improved on current treatment regimen. 4. Mild anemia and thrombocytopenia. 5. History of drug abuse. 6. Strep group C bacteremia with the most recent blood cultures being negative. Hold sedation again to assess mental status. Continue other supportive measur es. Weaning from ventilator will depend upon adequate mental status recovery. Prognosis is guarded. 35 minutes of critical care time was spent evaluating the patient. Consultation Date/Type/Reason Admit Date/Time Sep 18, 2018 at 12:38 Initial Consult Date 09/19/18 Type of Consult Pulmonary/critical care Patient is a 43-year-old male who was brought into the hospital after he was found down on [address] street. On-site CPR was done with revival of vital signs. Patient has been admitted to ICU and is currently on hypothermia protocol. Past medical history; unremarkable perhaps except for drug abuse. Medications; were reviewed. Patient is currently on fentanyl 70 mics per hour, Versed 6 mg/h, patient is on hypothermia protocol. Other medications were reviewed. Allergies; not available. Social history, positive for drug abuse. Family history; not available. Occupational history; not available. Review of system; unable to be obtained. General exam; young male, orally intubated, sedated and paralyzed. Requesting Provider: REBEKAH DUMONT Date/Time of Note DATE: 09/22/18 TIME: 09:33 24 HR Interval Summary Free Text/Dictation Patient's condition remains critical. Patient however has remained hemodynamically stable. Patient was given a sedation vacation last evening but then had to be re-sedated because of agitation. General exam; young male, orally intubated, sedated, currently in no distress. Exam/Review of Systems Exam Vitals Vital Signs Date Temp Pulse Resp B/P (MAP) Pulse Ox O2 O2 Flow FiO2 Time Delivery Rate 09/22/18 73 18 99 35 07:15 09/22/18 115/78 Mechanical 06:00 (90) Ventilator 09/22/18 97.9 04:00 Intake and Output 09/21/18 09/21/18 09/22/18 1414:59 22:59 06:59 IntakeIntake Total 273.958 ml 802.154 ml 877.758 ml OutputOutput Total 213 ml 259 ml 311 ml BalanceBalance 60.958 ml 543.154 ml 566.758 ml Exam H EENT exam; supple neck, no JVD. No lymphadenopathy. Midline trachea. No thyromegaly. Orally intubated. Patient has fair dentition. Pupils are midsize and reactive to light. Chest exam; clear to auscultation. S1-S2 audible, no murmurs. Regular rhythm. Abdomen exam; soft, no organomegaly. Bowel sounds audible. Nondistended. Extremity exam; no peripheral edema clubbing. Pulses 2+. MINCING MACHINE OPERATOR exam; patient is sedated. Results Result Diagram: 09/22/18 0415 09/22/18 0415 Results 24hrs Laboratory Tests Test 09/21/18 12:26 09/21/18 17:08 09/21/18 20:32 09/22/18 00:14 Bedside Glucose 100 101 89 109 Test 09/22/18 04:14 09/22/18 04:15 09/22/18 09:20 Bedside Glucose 124 104 White Blood Count 12.8 H Red Blood Count 4.58 L Hemoglobin 10.5 L Hematocrit 34.2 L Mean Corpuscular 74.7 L Volume Mean Corpuscular 22.9 L Hemoglobin Mean Corpuscular 30.7 L Hemoglobin Concent Red Cell Distribution 14.3 Width Platelet Count 182 # Mean Platelet Volume 12.8 H Immature Granulocytes 0.900 H % Neutrophils % 86.3 H Lymphocytes % 8.4 L Monocytes % 4.3 Eosinophils % 0.0 Basophils % 0.1 Nucleated Red Blood 0.0 Cells % Immature Granulocytes 0.120 H # Neutrophils # 11.1 H Lymphocytes # 1.1 Monocytes # 0.6 Eosinophils # 0.0 Basophils # 0.0 Nucleated Red Blood 0.0 Cells # Sodium Level 144 Potassium Level 4.3 Chloride Level 111 H Carbon Dioxide Level 29 Anion Gap 4 L Blood Urea Nitrogen 19 Creatinine 0.75 Est Glomerular > 60 Filtrat Rate mL/min Glucose Level 123 Calcium Level 8.9 Medications Medication Current Medications Ondansetron HCl (Zofran Inj) 4 mg Q6H PRN IV NAUSEA AND/OR VOMITING; Start 09/18/18 at 15:00 Pantoprazole (Protonix Iv) 40 mg DAILY@06 IV Last administered on 09/22/18 05:44; Admin Dose 40 MG; Start 09/19/18 at 06:00 Piperacillin Sod/ Tazobactam Sod 100 ml @ 200 mls/hr Q8 IVPB Last administered on 09/22/18 05:45; Admin Dose 200 MLS/HR; Start 09/18/18 at 14:44 Acetaminophen (Tylenol Liquid) 500 mg Q6H PO Last administered on 09/20/18 11:30; Admin Dose 500 MG; Start 09/19/18 at 17:30 Meperidine HCl (Demerol) 12.5 mg Q4H PRN IV POST OPERATIVE SHIVERING; Start 09/18/18 at 17:30 Meperidine HCl (Demerol) 25 mg Q4H PRN IV POST OPERATIVE SHIVERING Last administered on 09/18/18 18:26; Admin Dose 25 MG; Start 09/18/18 at 17:30 Eye Lubricant (Artificial Tears Oph) 2 drop Q6 BOTH EYES Last administered on 09/22/18 05:45; Admin Dose 2 DROP; Start 09/18/18 at 18:00 Propofol 100 ml @ 2.181 mls/ hr TITRATE IV Last administered on 09/22/18 01:16; Admin Dose 8.724 MLS/HR; Start 09/18/18 at 23:30 Insulin Human Regular 100 unit/ Sodium Chloride 100 ml @ 0 mls/hr PER PROTOCOL IV ; Start 09/19/18 at 00:45 Miscellaneous Information (* Miscellaneous Pharmacy Order) Treatment of Hypoglycemia: 1.BG 51... Per protocol XX ; Start 09/19/18 at 00:00 Dextrose (D50w Syringe) 25 ml Q15M PRN IV .DECREASED GLUCOSE Last administered on 09/20/18 02:11; Admin Dose 25 ML; Start 09/19/18 at 00:00 Dextrose (D50w Syringe) 50 ml Q15M PRN IV .DECREASED GLUCOSE Last administered on 09/20/18 04:25; Admin Dose 50 ML; Start 09/19/18 at 00:00 Eye Lubricant (Akwa Oint) 1 applic Q6 BOTH EYES Last administered on 09/22/18 05:45; Admin Dose 1 APPLIC; Start 09/19/18 at 00:43 Vecuronium [place] 100 mg/ Dextrose 100 ml @ 0 mls/hr TITRATE IV Last administered on 09/19/18 03:00; Admin Dose 3.6 MLS/HR; Start 09/19/18 at 03:00 Midazolam HCl 50 ml @ 1 mls/hr TITRATE IV Last administered on 09/21/18 08:07; Admin Dose 8 MLS/HR; Start 09/19/18 at 04:30 Fentanyl 100 ml @ 2.5 mls/hr TITRATE IV Last administered on 09/22/18 06:04; Admin Dose 7 MLS/HR; Start 09/19/18 at 14:00 Vancomycin HCl (Vanco Iv Per Pharmacy) VANCOMYCIN PER PHARMACY PER PROTOCOL XX ; Start 09/20/18 at 00:30 Vancomycin HCl 250 ml @ 125 mls/hr Q8H IVPB Last administered on 09/22/18 09:20; Admin Dose 125 MLS/HR; Start 09/20/18 at 09:00 Dextrose/Sodium Chloride 1,000 ml @ 80 mls/hr [id number] IV Last administered on 09/21/18 22:45; Admin Dose 80 MLS/HR; Start 09/20/18 at 03:30 Albuterol (Ventolin Hfa) 4 puff Q6H RESP THERAPY INH Last administered on 09/22/18 07:35; Admin Dose 4 PUFF; Start 09/20/18 at 08:30 Ipratropium [place] (Atrovent Hfa) 4 puff Q6H RESP THERAPY INH Last administered on 09/22/18 07:34; Admin Dose 4 PUFF; Start 09/20/18 at 08:30 Methylprednisolone Sodium Succinate (Solu-Medrol) 40 mg Q8 IV Last administered on 09/22/18 05:45; Admin Dose 40 MG; Start 09/20/18 at 09:30 Diagnostic Test (Pha) (Accu-Chek) 1 ea Q4H XX Last administered on 09/22/18 04:24; Admin Dose 1 EA; Start 09/20/18 at 12:00 ISRRAEL CAICEDO Sep 22, 2018 09:37
--- NOTE | 2018-09-22 11:29 | RADRPT ---
Vent Rate: 73 bpm RR Interval: 0 msec NV Interval: 144 msec QRS Duration: 100 msec QT Interval: 424 msec QTC Interval: 467 msec P-R-T [place]: 81 - 83 - 80 degrees Normal sinus rhythm Normal ECG Electronically Signed By: Omer Smith
[2018-09-22] MEDS: DEXMEDETOMIDINE HCL 200 MCG in SOD CHLORIDE 0.9% 48 ML IV SCH ×2 (12:37→19:17)
--- NOTE | 2018-09-22 16:03 | CONS ---
Assessment/Plan Assessment/Plan Hospital Course 43 yo M with hx of polysubstance abuse who presents comatose following a cardiac arrest... for which neurology is consulted. S/p targeted temperature therapy.. His neurologic examination is presently limited by sedation...however, he is awake.. His prognosis for meaningful neurologic recovery remains guarded.. CTH is unrevealing. P: OK to defer additional neuroimaging for now Wean sedation as tolerated Cont other medical management per primary Will follow clinically, to recommend neurologic studies, as necessary Consultation Date/Type/Reason Admit Date/Time Sep 18, 2018 at 12:38 Type of Consult Neurology Reason for Consultation coma s/p cardiac arrest Requesting Provider: REBEKAH DUMONT Date/Time of Note DATE: 09/22/18 TIME: 16:02 24 HR Interval Summary Free Text/Dictation Continues critical care. Pt reportedly awake today; on precedex and fentanyl gtt. Subjective hx not possible: pt non-verbal, pt critical Exam Vital Signs Vitals Vital Signs Date Temp Pulse Resp B/P (MAP) Pulse Ox O2 O2 Flow FiO2 Time Delivery Rate 09/22/18 55 18 133/92 99 15:00 (106) 09/22/18 Mechanical 14:00 Ventilator 09/22/18 35 12:53 09/22/18 98.1 12:00 Intake and Output 09/21/18 09/21/18 09/22/18 1515:00 23:00 07:00 IntakeIntake Total 188.830 ml 827.878 ml 933.396 ml OutputOutput Total 193 ml 235 ml 386 ml BalanceBalance -4.170 ml 592.878 ml 547.396 ml Exam PE: Gen Appearance: No Apparent Distress HEENT: Intubated Cardiovascular: Regular rate Abdomen: Soft Extremities: Dry NE: The patient was sedated and nonverbal. Arousable to loud stimulus. The pt was unable to track or follow commands. Cranial nerve examination was limited by mental status. Pupils were equal, pinpoint, and briskly reactive to light. There was no afferent pupillary defect. Funduscopic examination was limited. Face was grossly symmetric, w/ present corneal and cough reflexes. Tone was normal. Muscle bulk was normal. I did not see fasciculations. The patient withdrew to noxious stimulation in his extremities. Coordination and gait testing was limited by mental status. Arm and leg reflexes were within normal limits and symmetric. Boyle's sign was absent. Plantar responses were flexor. AL LEE NP Sep 22, 2018 16:03 DOT HENRY Sep 22, 2018 16:10
[2018-09-22] MEDS ORDERED: LORAZEPAM 2 MG INJ ONE (22:35)
[2018-09-22] MEDS ORDERED: LORAZEPAM 2 MG INJ IM PRN (23:00)
[2018-09-22] MEDS ORDERED: LORAZEPAM 2 MG INJ IV ONE (23:00)
[2018-09-23] VITALS (67 sets, daily range): BP systolic 113–164; BP diastolic 82–111; PULSE 41–102; RESP 10–25
[2018-09-23] MEDS: VANCOMYCIN 1 GM 250 ML IVPB SCH ×2 (00:34→09:24)
[2018-09-23] MEDS: FENTAnyl (DRIP) 1000 mcg/100mL 100 ML IV SCH (00:35)
[2018-09-23] MEDS: ALBUTEROL HFA 8 GM INHALER INH SCH ×4 (01:34→21:39)
[2018-09-23] MEDS: IPRATROPIUM (HFA) 12.9 GM INHALER INH SCH ×4 (01:34→21:39)
[2018-09-23] MEDS ORDERED: LORAZEPAM 2 MG INJ IV PRN (02:00)
[2018-09-23] MEDS: ACCU-CHEK XX SCH ×6 (04:18→23:53)
[2018-09-23] MEDS: ACETAMINOPHEN 650MG/20.3ML CUP PO SCH ×4 (05:29→22:56)
[2018-09-23] MEDS: PIPER-TAZO 3.375 GM IV (PMX) 100 ML IVPB SCH ×3 (05:35→21:42)
[2018-09-23] MEDS: METHYLPREDNISOLONE 40 MG INJ IV SCH ×3 (05:35→21:41)
[2018-09-23] MEDS: OCULAR LUBRICANT 3.5 GM OPH OINT BOTH EYES SCH ×4 (05:36→23:49)
[2018-09-23] MEDS: ARTIFICIAL TEARS 15 ML OPH BOTH EYES SCH ×4 (05:36→23:49)
--- NOTE | 2018-09-23 08:17 | CONS ---
Assessment/Plan Assessment/Plan Assessment/Plan (Daily) Ventilator setting; AC of 18, tidal volume 550, PEEP of 5, 35% FiO2. Patient is currently on propofol 25 mics per kilogram per minute. Assessment recommendations; 1. Patient admitted with cardiac arrest due to drug overdose, status post hypothermia protocol. Still requiring continuous sedation because of agitation off medications. 2. Asthma with acute bronchospasm, improved clinically on current treatment regimen. 3. Strep group C bacteremia, most recent cultures are negative. Patient cur rently on appropriate antimicrobial regimen. 4. Mild hyperglycemia. 5. Persistent encephalopathy. Continue current supportive care. Patient to be given another sedation vacation 24 hours in order to assess for possible weaning from ventilator. Obtain follow-up chest x-ray. Wean down Solu-Medrol in 24 hours. Prognosis is guarded and depends upon adequate mental status recovery. 35 minutes of critical care time was spent evaluating the patient. Consultation Date/Type/Reason Admit Date/Time Sep 18, 2018 at 12:38 Initial Consult Date 09/19/18 Type of Consult Pulmonary/critical care Patient is a 43-year-old male who was brought into the hospital after he was found down on [address]. On-site CPR was done with revival of vital signs. Patient has been admitted to ICU and is currently on hypothermia protocol. Past medical history; unremarkable perhaps except for drug abuse. Medications; were reviewed. Patient is currently on fentanyl 70 mics per hour, Versed 6 mg/h, patient is on hypothermia protocol. Other medications were reviewed. Allergies; not available. Social history, positive for drug abuse. Family history; not available. Occupational history; not available. Review of system; unable to be obtained. General exam; young male, orally intubated, sedated and paralyzed. Requesting Provider: REBEKAH DUMONT Date/Time of Note DATE: 09/23/18 TIME: 08:13 24 HR Interval Summary Free Text/Dictation Patient's condition remains critical. Patient cannot handle sedation vacation due to underlying severe agitation off medications. Patient however has remained hemodynamically stable. General exam; young male, orally intubated, sedated, currently in no distress. Exam/Review of Systems Exam Vitals Vital Signs Date Temp Pulse Resp B/P (MAP) Pulse Ox O2 O2 Flow FiO2 Time Delivery Rate 09/23/18 59 18 130/89 98 Mechanical 06:00 (103) Ventilator 09/23/18 35 05:40 09/23/18 97.9 04:00 Intake and Output 09/22/18 09/22/18 09/23/18 1515:00 23:00 07:00 IntakeIntake Total 896.798 ml 641.60 ml 378.74 ml OutputOutput Total 375 ml 305 ml 370 ml BalanceBalance 521.798 ml 336.60 ml 8.74 ml Exam H EENT exam; supple neck, no JVD. No lymphadenopathy. Midline trachea. No thyromegaly. Orally intubated. Patient has fair dentition. Copious secretions are seen coming through endotracheal tube. Pupils are midsize and reactive to light. Chest exam; diminished breath sounds bilaterally. No ear sounds. S1-S2 audible, no murmurs. Regular rhythm. Abdomen exam; soft, no organomegaly. Bowel delivery. Extremity exam; no peripheral edema or clubbing. COMMUNITY ENGAGEMENT REPRESENTATIVE exam; patient is sedated. Results Result Diagram: 09/23/18 0430 09/23/18 0430 Results 24hrs Laboratory Tests Test 09/22/18 09:20 09/22/18 12:01 09/22/18 16:32 09/22/18 19:15 Bedside Glucose 104 95 109 109 Test 09/22/18 23:39 09/23/18 04:11 09/23/18 04:30 Bedside Glucose 108 106 White Blood Count 10.8 Red Blood Count 4.77 Hemoglobin 10.9 L Hematocrit 34.8 L Mean Corpuscular Volume 73.0 L Mean Corpuscular 22.9 L Hemoglobin Mean Corpuscular 31.3 L Hemoglobin Concent Red Cell Distribution 14.2 Width Platelet Count 245 # Mean Platelet Volume 11.7 H Immature Granulocytes % 1.500 H Neutrophils % 81.2 H Lymphocytes % 10.5 L Monocytes % 6.7 Eosinophils % 0.0 Basophils % 0.1 Nucleated Red Blood 0.0 Cells % Immature Granulocytes # 0.160 H Neutrophils # 8.8 H Lymphocytes # 1.1 Monocytes # 0.7 Eosinophils # 0.0 Basophils # 0.0 Nucleated Red Blood 0.0 Cells # Sodium Level 145 H Potassium Level 4.0 Chloride Level 109 Carbon Dioxide Level 29 Anion Gap 7 Blood Urea Nitrogen 23 H Creatinine 0.74 Est Glomerular Filtrat > 60 Rate mL/min Glucose Level 107 Calcium Level 9.1 Total Bilirubin 0.3 Direct Bilirubin 0.00 Indirect Bilirubin 0.3 Aspartate Amino 90 H Transf (AST/SGOT) Alanine 100 H Aminotransferase (ALT/SG PT) Alkaline Phosphatase 63 Total Protein 5.8 L Albumin 3.1 L Globulin 2.70 Albumin/Globulin Ratio 1.14 Medications Medication Current Medications Ondansetron HCl (Zofran Inj) 4 mg Q6H PRN IV NAUSEA AND/OR VOMITING; Start 09/18/18 at 15:00 Piperacillin Sod/ Tazobactam Sod 100 ml @ 200 mls/hr Q8 IVPB Last administered on 09/23/18 05:35; Admin Dose 200 MLS/HR; Start 09/18/18 at 14:44 Acetaminophen (Tylenol Liquid) 500 mg Q6H PO Last administered on 09/22/18 11:56; Admin Dose 500 MG; Start 09/19/18 at 17:30 Meperidine HCl (Demerol) 12.5 mg Q4H PRN IV POST OPERATIVE SHIVERING; Start 09/18/18 at 17:30 Meperidine HCl (Demerol) 25 mg Q4H PRN IV POST OPERATIVE SHIVERING Last administered on 09/18/18 18:26; Admin Dose 25 MG; Start 09/18/18 at 17:30 Eye Lubricant (Artificial Tears Oph) 2 drop Q6 BOTH EYES Last administered on 09/23/18 05:36; Admin Dose 2 DROP; Start 09/18/18 at 18:00 Insulin Human Regular 100 unit/ Sodium Chloride 100 ml @ 0 mls/hr PER PROTOCOL IV ; Start 09/19/18 at 00:45 Miscellaneous Information (* Miscellaneous Pharmacy Order) Treatment of Hypoglycemia: 1.BG 51... Per protocol XX ; Start 09/19/18 at 00:00 Dextrose (D50w Syringe) 25 ml Q15M PRN IV .DECREASED GLUCOSE Last administered on 09/20/18 02:11; Admin Dose 25 ML; Start 09/19/18 at 00:00 Dextrose (D50w Syringe) 50 ml Q15M PRN IV .DECREASED GLUCOSE Last administered on 09/20/18 04:25; Admin Dose 50 ML; Start 09/19/18 at 00:00 Eye Lubricant (Akwa Oint) 1 applic Q6 BOTH EYES Last administered on 09/23/18 05:36; Admin Dose 1 APPLIC; Start 09/19/18 at 00:43 Vecuronium [place] 100 mg/ Dextrose 100 ml @ 0 mls/hr TITRATE IV Last administered on 09/19/18 03:00; Admin Dose 3.6 MLS/HR; Start 09/19/18 at 03:00 Midazolam HCl 50 ml @ 1 mls/hr TITRATE IV Last administered on 09/21/18 08:07; Admin Dose 8 MLS/HR; Start 09/19/18 at 04:30 Fentanyl 100 ml @ 2.5 mls/hr TITRATE IV Last administered on 09/23/18 00:35; Admin Dose 5 MLS/HR; Start 09/19/18 at 14:00 Vancomycin HCl (Vanco Iv Per Pharmacy) VANCOMYCIN PER PHARMACY PER PROTOCOL XX ; Start 09/20/18 at 00:30 Vancomycin HCl 250 ml @ 125 mls/hr Q8H IVPB Last administered on 09/23/18 00:34; Admin Dose 125 MLS/HR; Start 09/20/18 at 09:00 Albuterol (Ventolin Hfa) 4 puff Q6H RESP THERAPY INH Last administered on 09/23/18 08:06; Admin Dose 4 PUFF; Start 09/20/18 at 08:30 Ipratropium [place] (Atrovent Hfa) 4 puff Q6H RESP THERAPY INH Last admi nistered on 09/23/18 08:06; Admin Dose 4 PUFF; Start 09/20/18 at 08:30 Methylprednisolone Sodium Succinate (Solu-Medrol) 40 mg Q8 IV Last administered on 09/23/18 05:35; Admin Dose 40 MG; Start 09/20/18 at 09:30 Diagnostic Test (Pha) (Accu-Chek) 1 ea Q4H XX Last administered on 09/23/18 04:18; Admin Dose 1 EA; Start 09/20/18 at 12:00 Dexmedetomidine HCl 200 mcg/ Sodium Chloride 50 ml @ 0 mls/hr TITRATE IV Last administered on 09/22/18 19:17; Admin Dose 0.05 MLS/HR; Start 09/22/18 at 10:30 Famotidine (Pepcid Iv) 20 mg BID IV ; Start 09/23/18 at 09:00 Propofol 100 ml @ 2.19 mls/hr Q12H IV Last administered on 09/22/18at 22:55; Admin Dose 8.76 MLS/HR; Start 09/22/18 at 23:00 Lorazepam (Ativan) 1 mg Q4 PRN IV AGITATION; Start 09/23/18 at 02:00 ISRRAEL CAICEDO Sep 23, 2018 08:17
[2018-09-23] MEDS: FAMOTIDINE 20 MG INJ IV SCH ×2 (09:24→20:58)
[2018-09-23] MEDS: PROPOFOL 100 ML IV SCH ×2 (10:21→22:45)
[2018-09-23] MEDS: DEXMEDETOMIDINE HCL 200 MCG in SOD CHLORIDE 0.9% 48 ML IV SCH (14:01)
--- NOTE | 2018-09-23 15:49 | CONS ---
Assessment/Plan Assessment/Plan Hospital Course 43 yo M with hx of polysubstance abuse who presents comatose following a cardiac arrest... for which neurology is consulted. Now s/p TTM. The pt is awake with eyes open and moves all extremities when sedation is held. His prognosis remains guarded. CTH is unrevealing. P: Ok to defer additional neuroimaging for now Cont other medical management per primary Wean sedation off, as able to tolerate Will follow clinically, to recommend neurologic studies, as necessary Consultation Date/Type/Reason Admit Date/Time Sep 18, 2018 at 12:38 Type of Consult Neurology Reason for Consultation coma s/p cardiac arrest Requesting Provider: REBEKAH DUMONT Date/Time of Note DATE: 09/23/18 TIME: 15:48 24 HR Interval Summary Free Text/Dictation Continues critical care. Pt reportedly did not tolerate being off sedation and became agitated, tachypneic, tachycardic and reportedly kicked the pm nurse. Exam Vital Signs Vitals Vital Signs Date Temp Pulse Resp B/P (MAP) Pulse Ox O2 O2 Flow FiO2 Time Delivery Rate 09/23/18 97 15:16 09/23/18 66 16 153/108 13:15 (123) 09/23/18 30 13:14 09/23/18 Mechanical 13:00 Ventilator 09/23/18 98.5 12:00 Intake and Output 09/22/18 09/22/18 09/23/18 1515:00 23:00 07:00 IntakeIntake Total 896.798 ml 641.60 ml 378.74 ml OutputOutput Total 375 ml 305 ml 420 ml BalanceBalance 521.798 ml 336.60 ml -41.26 ml Exam PE: Gen Appearance: No Apparent Distress HEENT: Intubated Cardiovascular: Regular rate Abdomen: Soft Extremities: Dry NE: The patient was sedated and nonverbal. Arousable to loud stimulus. The pt was unable to track or follow commands. Cranial nerve examination was limited by mental status. Pupils were equal, pinpoint, and briskly reactive to light. There was no afferent pupillary defect. Funduscopic examination was limited. Face was grossly symmetric, w/ present corneal and cough reflexes. Tone was normal. Muscle bulk was normal. I did not see fasciculations. The patient withdrew to noxious stimulation in his extremities. Coordination and gait testing was limited by mental status. Arm and leg reflexes were within normal limits and symmetric. Boyle's sign was absent. Plantar responses were flexor. AL LEE OPTOMETRIC TECHNOLOGIST Sep 23, 2018 15:49
--- NOTE | 2018-09-23 16:47 | PN ---
Date/Time of Note Date/Time of Note DATE: 09/23/18 TIME: 16:42 Assessment/Plan VTE Prophylaxis Risk score (from Ns)>0 risk: 7 SCD applied (from Ns): Yes Pharmacological prophylaxis: heparin Lines/Catheters IV Catheter Type (from Nrsg): Central Line Central line still needed: Yes Urinary Cath still in place: Yes Reason Cath still needed: urinary retention Assessment/Plan Hospital Course 43 yo male with overdose leading to cardiac arrest with ROSC, now on mechanical ventilation - Mechanical ventilation weanign per pulm - Strep bactremia - > continue zoysn - Drug cessation when extubation - Concerning for anoxic encephelopathy Result Diagram: 09/23/18 0430 09/23/18 0430 Results 24hrs Laboratory Tests Test 09/22/18 19:15 09/22/18 23:39 09/23/18 04:11 09/23/18 04:30 Bedside Glucose 109 108 106 White Blood Count 10.8 Red Blood Count 4.77 Hemoglobin 10.9 L Hematocrit 34.8 L Mean Corpuscular 73.0 L Volume Mean Corpuscular 22.9 L Hemoglobin Mean Corpuscular 31.3 L Hemoglobin Concent Red Cell 14.2 Distribution Width Platelet Count 245 # Mean Platelet 11.7 H Volume Immature 1.500 H Granulocytes % Neutrophils % 81.2 H Lymphocytes % 10.5 L Monocytes % 6.7 Eosinophils % 0.0 Basophils % 0.1 Nucleated Red 0.0 Blood Cells % Immature 0.160 H Granulocytes # Neutrophils # 8.8 H Lymphocytes # 1.1 Monocytes # 0.7 Eosinophils # 0.0 Basophils # 0.0 Nucleated Red 0.0 Blood Cells # Sodium Level 145 H Potassium Level 4.0 Chloride Level 109 Carbon Dioxide 29 Level Anion Gap 7 Blood Urea 23 H Nitrogen Creatinine 0.74 Est Glomerular > 60 Filtrat Rate mL/min Glucose Level 107 Calcium Level 9.1 Total Bilirubin 0.3 Direct Bilirubin 0.00 Indirect Bilirubin 0.3 Aspartate Amino 90 H Transf (AST/SGOT) Alanine 100 H Aminotransferase ( ALT/SGPT) Alkaline 63 Phosphatase Total Protein 5.8 L Albumin 3.1 L Globulin 2.70 Albumin/Globulin 1.14 Ratio Test 09/23/18 07:00 09/23/18 09:21 09/23/18 11:42 09/23/18 15:31 Blood Gas Specimen Blood arterial Source Arterial Blood 09/23/2018 8:28:26 Date Drawn AM Arterial Blood pH 7.438 (Temp corrected) Arterial Blood 41.3 pCO2 (Temp correct) Arterial Blood pO2 89.1 (Temp corrected) Arterial Blood 27.3 H HCO3 Arterial Blood 2.9 Base Excess Arterial Blood 96.3 Oxygen Saturation George Test ACCEPTAB Arterial Blood Gas Right Radial Puncture Site Arterial 0.3 Blood Carboxyhemog lobin Arterial Blood 0.2 Methemoglobin Blood Gas A-a O2 76.3 H Differential Oxyhemoglobin 95.8 Percent Blood Gas 37.0 Temperature Blood Gas 18.0 Respiration Rate Blood Gas Actual 18 Respiration Rate Blood Gas Modality VENT - AC FiO2 30.0 Blood Gas Tidal 550.0 Volume Blood Gas Low PEEP 5.0 Setting Blood Gas Notified TM Whom Blood Gas Notified 09/23/2018 8:54:01 Time AM Bedside Glucose 86 92 92 Test 09/23/18 16:15 Blood Gas Specimen Blood arterial Source Arterial Blood 09/23/2018 4:05:28 Date Drawn PM Arterial Blood pH 7.443 (Temp corrected) Arterial Blood 42.0 pCO2 (Temp correct) Arterial Blood pO2 111.4 H (Temp corrected) Arterial Blood 28.1 H HCO3 Arterial Blood 3.6 H Base Excess Arterial Blood 97.3 Oxygen Saturation George Test ACCEPTAB Arterial Blood Gas Right Radial Puncture Site Arterial 0.3 Blood Carboxyhemog lobin Arterial Blood 0.2 Methemoglobin Blood Gas A-a O2 53.2 H Differential Oxyhemoglobin 96.8 Percent Blood Gas 37.0 Temperature Blood Gas Modality VENT - AC FiO2 30.0 Blood Gas Low PEEP 5.0 Setting Blood Gas Pressure 10 Support Blood Gas Notified dt Whom Blood Gas Notified 09/23/2018 4:13:54 Time PM Subjective 24 Hr Interval Summary Free Text/Dictation Remains intubated on sedation Spontaneous movements throughout when off sedatoin Exam/Review of Systems Exam Vitals Vital Signs Date Temp Pulse Resp B/P (MAP) Pulse Ox O2 O2 Flow FiO2 Time Delivery Rate 09/23/18 Nasal 16:37 Cannula 09/23/18 50 18 136/88 99 2.0 16:30 (104) 09/23/18 98.1 16:00 09/23/18 30 13:14 Intake and Output 09/22/18 09/22/18 09/23/18 1515:00 23:00 07:00 IntakeIntake Total 896.798 ml 641.60 ml 378.74 ml OutputOutput Total 375 ml 305 ml 420 ml BalanceBalance 521.798 ml 336.60 ml -41.26 ml Results Results 24hrs Laboratory Tests Test 09/22/18 19:15 09/22/18 23:39 09/23/18 04:11 09/23/18 04:30 Bedside Glucose 109 108 106 White Blood Count 10.8 Red Blood Count 4.77 Hemoglobin 10.9 L Hematocrit 34.8 L Mean Corpuscular 73.0 L Volume Mean Corpuscular 22.9 L Hemoglobin Mean Corpuscular 31.3 L Hemoglobin Concent Red Cell 14.2 Distribution Width Platelet Count 245 # Mean Platelet 11.7 H Volume Immature 1.500 H Granulocytes % Neutrophils % 81.2 H Lymphocytes % 10.5 L Monocytes % 6.7 Eosinophils % 0.0 Basophils % 0.1 Nucleated Red 0.0 Blood Cells % Immature 0.160 H Granulocytes # Neutrophils # 8.8 H Lymphocytes # 1.1 Monocytes # 0.7 Eosinophils # 0.0 Basophils # 0.0 Nucleated Red 0.0 Blood Cells # Sodium Level 145 H Potassium Level 4.0 Chloride Level 109 Carbon Dioxide 29 Level Anion Gap 7 Blood Urea 23 H Nitrogen Creatinine 0.74 Est Glomerular > 60 Filtrat Rate mL/min Glucose Level 107 Calcium Level 9.1 Total Bilirubin 0.3 Direct Bilirubin 0.00 Indirect Bilirubin 0.3 Aspartate Amino 90 H Transf (AST/SGOT) Alanine 100 H Aminotransferase ( ALT/SGPT) Alkaline 63 Phosphatase Total Protein 5.8 L Albumin 3.1 L Globulin 2.70 Albumin/Globulin 1.14 Ratio Test 09/23/18 07:00 09/23/18 09:21 09/23/18 11:42 09/23/18 15:31 Blood Gas Specimen Blood arterial Source Arterial Blood 09/23/2018 8:28:26 Date Drawn AM Arterial Blood pH 7.438 (Temp corrected) Arterial Blood 41.3 pCO2 (Temp correct) Arterial Blood pO2 89.1 (Temp corrected) Arterial Blood 27.3 H HCO3 Arterial Blood 2.9 Base Excess Arterial Blood 96.3 Oxygen Saturation George Test ACCEPTAB Arterial Blood Gas Right Radial Puncture Site Arterial 0.3 Blood Carboxyhemog lobin Arterial Blood 0.2 Methemoglobin Blood Gas A-a O2 76.3 H Differential Oxyhemoglobin 95.8 Percent Blood Gas 37.0 Temperature Blood Gas 18.0 Respiration Rate Blood Gas Actual 18 Respiration Rate Blood Gas Modality VENT - AC FiO2 30.0 Blood Gas Tidal 550.0 Volume Blood Gas Low PEEP 5.0 Setting Blood Gas Notified TM Whom Blood Gas Notified 09/23/2018 8:54:01 Time AM Bedside Glucose 86 92 92 Test 09/23/18 16:15 Blood Gas Specimen Blood arterial Source Arterial Blood 09/23/2018 4:05:28 Date Drawn PM Arterial Blood pH 7.443 (Temp corrected) Arterial Blood 42.0 pCO2 (Temp correct) Arterial Blood pO2 111.4 H (Temp corrected) Arterial Blood 28.1 H HCO3 Arterial Blood 3.6 H Base Excess Arterial Blood 97.3 Oxygen Saturation George Test ACCEPTAB Arterial Blood Gas Right Radial Puncture Site Arterial 0.3 Blood Carboxyhemog lobin Arterial Blood 0.2 Methemoglobin Blood Gas A-a O2 53.2 H Differential Oxyhemoglobin 96.8 Percent Blood Gas 37.0 Temperature Blood Gas Modality VENT - AC FiO2 30.0 Blood Gas Low PEEP 5.0 Setting Blood Gas Pressure 10 Support Blood Gas Notified dt Whom Blood Gas Notified 09/23/2018 4:13:54 Time PM Medications Medication Current Medications Ondansetron HCl (Zofran Inj) 4 mg Q6H PRN IV NAUSEA AND/OR VOMITING; Start 09/18/18 at 15:00 Piperacillin Sod/ Tazobactam Sod 100 ml @ 200 mls/hr Q8 IVPB Last administered on 09/23/18at 13:57; Admin Dose 200 MLS/HR; Start 09/18/18 at 14:44 Acetaminophen (Tylenol Liquid) 500 mg Q6H PO Last administered on 09/22/18at 11:56; Admin Dose 500 MG; Start 09/19/18 at 17:30 Meperidine HCl (Demerol) 12.5 mg Q4H PRN IV POST OPERATIVE SHIVERING; Start 09/18/18 at 17:30 Meperidine HCl (Demerol) 25 mg Q4H PRN IV POST OPERATIVE SHIVERING Last administered on 09/18/18at 18:26; Admin Dose 25 MG; Start 09/18/18 at 17:30 Eye Lubricant (Artificial Tears Oph) 2 drop Q6 BOTH EYES Last administered on 09/23/18 11:41; Admin Dose 2 DROP; Start 09/18/18 at 18:00 Insulin Human Regular 100 unit/ Sodium Chloride 100 ml @ 0 mls/hr PER PROTOCOL IV ; Start 09/19/18 at 00:45 Miscellaneous Information (* Miscellaneous Pharmacy Order) Treatment of Hypoglycemia: 1.BG 51... Per protocol XX ; Start 09/19/18 at 00:00 Dextrose (D50w Syringe) 25 ml Q15M PRN IV .DECREASED GLUCOSE Last administered on 09/20/18 02:11; Admin Dose 25 ML; Start 09/19/18 at 00:00 Dextrose (D50w Syringe) 50 ml Q15M PRN IV .DECREASED GLUCOSE Last administered on 09/20/18 04:25; Admin Dose 50 ML; Start 09/19/18 at 00:00 Eye Lubricant (Akwa Oint) 1 applic Q6 BOTH EYES Last administered on 09/23/18 11:41; Admin Dose 1 APPLIC; Start 09/19/18 at 00:43 Vecuronium [place] 100 mg/ Dextrose 100 ml @ 0 mls/hr TITRATE IV Last administered on 09/19/18 03:00; Admin Dose 3.6 MLS/HR; Start 09/19/18 at 03:00 Midazolam HCl 50 ml @ 1 mls/hr TITRATE IV Last administered on 09/21/18 08:07; Admin Dose 8 MLS/HR; Start 09/19/18 at 04:30 Fentanyl 100 ml @ 2.5 mls/hr TITRATE IV Last administered on 09/23/18 00:35; Admin Dose 5 MLS/HR; Start 09/19/18 at 14:00 Albuterol (Ventolin Hfa) 4 puff Q6H RESP THERAPY INH Last administered on 09/23/18 13:16; Admin Dose 4 PUFF; Start 09/20/18 at 08:30 Ipratropium [place] (Atrovent Hfa) 4 puff Q6H RESP THERAPY INH Last administered on 09/23/18 13:16; Admin Dose 4 PUFF; Start 09/20/18 at 08:30 Methylprednisolone Sodium Succinate (Solu-Medrol) 40 mg Q8 IV Last administered on 09/23/18 13:57; Admin Dose 40 MG; Start 09/20/18 at 09:30 Diagnostic Test (Pha) (Accu-Chek) 1 ea Q4H XX Last administered on 09/23/18at 04:18; Admin Dose 1 EA; Start 09/20/18 at 12:00 Dexmedetomidine HCl 200 mcg/ Sodium Chloride 50 ml @ 0 mls/hr TITRATE IV Last administered on 09/23/18at 14:01; Admin Dose 0.1 MLS/HR; Start 09/22/18 at 10:30 Famotidine (Pepcid Iv) 20 mg BID IV Last administered on 09/23/18at 09:24; Admin Dose 20 MG; Start 09/23/18 at 09:00 Propofol 100 ml @ 2.19 mls/hr Q12H IV Last administered on 09/22/18at 22:55; Admin Dose 8.76 MLS/HR; Start 09/22/18 at 23:00 Lorazepam (Ativan) 1 mg Q4 PRN IV AGITATION; Start 09/23/18 at 02:00 KEYSHA GALLEGO MD Sep 23, 2018 16:47
[2018-09-24] VITALS (25 sets, daily range): BP systolic 115–186; BP diastolic 66–115; PULSE 33–71; RESP 13–29
[2018-09-24] MEDS: IPRATROPIUM (HFA) 12.9 GM INHALER INH SCH ×2 (02:00→08:00)
[2018-09-24] MEDS ORDERED: LORAZEPAM 2 MG INJ IV ONE ×2 (03:30→06:00)
[2018-09-24] MEDS ORDERED: HALOPERIDOL 5 MG INJ IM ONE ×2 (03:30→05:49)
[2018-09-24] MEDS: ALBUTEROL HFA 8 GM INHALER INH SCH ×2 (03:41→08:00)
[2018-09-24] MEDS: ACCU-CHEK XX SCH ×4 (04:13→23:57)
[2018-09-24] MEDS: ACETAMINOPHEN 650MG/20.3ML CUP PO SCH ×4 (05:24→23:13)
[2018-09-24] MEDS: METHYLPREDNISOLONE 40 MG INJ IV SCH (05:26)
[2018-09-24] MEDS: PIPER-TAZO 3.375 GM IV (PMX) 100 ML IVPB SCH ×3 (05:26→21:11)
[2018-09-24] MEDS: ARTIFICIAL TEARS 15 ML OPH BOTH EYES SCH ×4 (05:26→23:56)
[2018-09-24] MEDS: OCULAR LUBRICANT 3.5 GM OPH OINT BOTH EYES SCH ×4 (05:26→23:56)
[2018-09-24] MEDS ORDERED: LORAZEPAM 2 MG INJ IM ONE (05:48)
--- NOTE | 2018-09-24 07:12 | CONS ---
Assessment/Plan Assessment/Plan Hospital Course 43 yo M with hx of polysubstance abuse who presents comatose following a cardiac arrest... for which neurology is consulted. Now s/p TTM. s/o Extubation on 09/23 The pt is now awake, oriented to person..which is reassuring... CTH is unremarkable. P: OK to defer additional neuroimaging for now Cont other medical management per primary Wean sedation off, as able to tolerate Will follow clinically, to recommend neurologic studies, as necessary Consultation Date/Type/Reason Admit Date/Time Sep 18, 2018 at 12:38 Type of Consult Neurology Reason for Consultation ams Requesting Provider: REBEKAH DUMONT Date/Time of Note DATE: 09/24/18 TIME: 07:11 24 HR Interval Summary Free Text/Dictation s/p extubation Exam Vital Signs Vitals Vital Signs Date Temp Pulse Resp B/P (MAP) Pulse Ox O2 O2 Flow FiO2 Time Delivery Rate 09/24/18 63 13 125/66 99 Room Air 06:00 (85) 09/24/18 98.3 05:24 09/24/18 2.0 03:04 09/23/18 30 13:14 Intake and Output 09/23/18 09/23/18 09/24/18 1515:00 23:00 07:00 IntakeIntake Total 167.025 ml 100 ml 0 ml OutputOutput Total 450 ml 725 ml 740 ml BalanceBalance -282.975 ml -625 ml -740 ml Exam PE: Gen Appearance: No Apparent Distress HEENT: Normocephalic.. Cardiovascular: Regular rate Abdomen: Soft Extremities: Dry NE: The patient was awake, mostly yelling... Able to comprehend simple questions.. Oriented to person.. Cranial nerve examination was limited by mental status. Pupils were equal and reactive to light. There was no afferent pupillary defect. Funduscopic examination was limited. Face was grossly symmetric, w/ present corneal and cough reflexes. Tone was normal. Muscle bulk was normal. I did not see fasciculations. The patient moved his limbs spontaneously. Coordination and gait testing was limited by mental status. Arm and leg reflexes were within normal limits and symmetric. Boyle's sign was absent. Plantar responses were flexor. DOT HENRY Sep 24, 2018 07:12
[2018-09-24] MEDS: FAMOTIDINE 20 MG INJ IV SCH ×2 (09:18→20:25)
--- NOTE | 2018-09-24 09:31 | CONS ---
Assessment/Plan Assessment/Plan Assessment/Plan (Daily) Assessment and recommendations; 1. Patient admitted with cardiac arrest status post CPR and hypothermia protocol, still exhibiting encephalopathy. 2. Status post extubation. 3. Group C strep bacteremia with most recent cultures being negative. Patient currently on appropriate antimicrobial regimen. 4. Asthma with interval improvement. 5. Hyperglycemia, likely steroid induced. Continue current supportive care. Discontinue Solu-Medrol. Monitor mental status. Consultation Date/Type/Reason Admit Date/Time Sep 18, 2018 at 12:38 Initial Consult Date 09/19/18 Type of Consult Pulmonary/critical care Patient is a 43-year-old male who was brought into the hospital after he was found down on [address]. On-site CPR was done with revival of vital signs. Patient has been admitted to ICU and is currently on hypothermia protocol. Past medical history; unremarkable perhaps except for drug abuse. Medications; were reviewed. Patient is currently on fentanyl 70 mics per hour, Versed 6 mg/h, patient is on hypothermia protocol. Other medications were reviewed. Allergies; not available. Social history, positive for drug abuse. Family history; not available. Occupational history; not available. Review of system; unable to be obtained. General exam; young male, orally intubated, sedated and paralyzed. Requesting Provider: REBEKAH DUMONT Date/Time of Note DATE: 09/24/18 TIME: 09:28 24 HR Interval Summary Free Text/Dictation Patient was extubated last evening and has remained hemodynamically stable also exhibiting stable pulmonary status. However patient still exhibiting agitation off and on. General exam; young male, occasionally agitated. Currently no distress. Exam/Review of Systems Exam Vitals Vital Signs Date Temp Pulse Resp B/P (MAP) Pulse Ox O2 O2 Flow FiO2 Time Delivery Rate 09/24/18 71 08:00 09/24/18 13 125/66 99 Room Air 06:00 (85) 09/24/18 98.3 05:24 09/24/18 2.0 03:04 09/23/18 30 13:14 Intake and Output 09/23/18 09/23/18 09/24/18 1515:00 23:00 07:00 IntakeIntake Total 167.025 ml 100 ml 100 ml OutputOutput Total 450 ml 725 ml 800 ml BalanceBalance -282.975 ml -625 ml -700 ml Exam H EENT exam; supple neck, no JVD. No lymphadenopathy. Midline trachea. No thy romegaly. Patient has fair dentition. No neck masses. Chest exam; clear to auscultation. S1-S2 audible, no murmurs. Regular rhythm. Abdomen exam; soft, nontender. No organomegaly. Bowel sounds audible. Extremity exam; no peripheral edema. [employer]LYST exam; he is awake occasionally agitated. Results Result Diagram: 09/23/18 0430 09/23/18 0430 Results 24hrs Laboratory Tests Test 09/23/18 11:42 09/23/18 15:31 09/23/18 16:15 09/23/18 20:57 Bedside Glucose 92 92 87 Blood Gas Specimen Blood arterial Source Arterial Blood 09/23/2018 4:05:00 Date Drawn PM Arterial Blood pH 7.443 (Temp corrected) Arterial Blood 42.0 pCO2 (Temp correct) Arterial Blood pO2 111.4 H (Temp corrected) Arterial Blood 28.1 H HCO3 Arterial Blood 3.6 H Base Excess Arterial Blood 97.3 Oxygen Saturation George Test ACCEPTAB Arterial Blood Gas Right Radial Puncture Site Arterial 0.3 Blood Carboxyhemog lobin Arterial Blood 0.2 Methemoglobin Blood Gas A-a O2 53.2 H Differential Oxyhemoglobin 96.8 Percent Blood Gas 37.0 Temperature Blood Gas Actual 22 Respiration Rate Blood Gas Modality VENT - CPAP FiO2 30.0 Blood Gas Low PEEP 5.0 Setting Blood Gas Pressure 10 Support Blood Gas Notified dt Whom Blood Gas Notified 09/23/2018 4:13:00 Time PM Test 09/23/18 23:51 09/24/18 04:12 09/24/18 09:21 Bedside Glucose 100 109 105 Medications Medication Current Medications Ondansetron HCl (Zofran Inj) 4 mg Q6H PRN IV NAUSEA AND/OR VOMITING; Start 09/18/18 at 15:00 Piperacillin Sod/ Tazobactam Sod 100 ml @ 200 mls/hr Q8 IVPB Last administered on 09/24/18at 05:26; Admin Dose 200 MLS/HR; Start 09/18/18 at 14:44 Acetaminophen (Tylenol Liquid) 500 mg Q6H PO Last administered on 09/22/18at 11:56; Admin Dose 500 MG; Start 09/19/18 at 17:30 Meperidine HCl (Demerol) 12.5 mg Q4H PRN IV POST OPERATIVE SHIVERING; Start 09/18/18 at 17:30 Meperidine HCl (Demerol) 25 mg Q4H PRN IV POST OPERATIVE SHIVERING Last administered on 09/18/18 18:26; Admin Dose 25 MG; Start 09/18/18 at 17:30 Eye Lubricant (Artificial Tears Oph) 2 drop Q6 BOTH EYES Last administered on 09/24/18 05:26; Admin Dose 2 DROP; Start 09/18/18 at 18:00 Insulin Human Regular 100 unit/ Sodium Chloride 100 ml @ 0 mls/hr PER PROTOCOL IV ; Start 09/19/18 at 00:45 Miscellaneous Information (* Miscellaneous Pharmacy Order) Treatment of Hypoglycemia: 1.BG 51... Per protocol XX ; Start 09/19/18 at 00:00 Dextrose (D50w Syringe) 25 ml Q15M PRN IV .DECREASED GLUCOSE Last administered on 09/20/18 02:11; Admin Dose 25 ML; Start 09/19/18 at 00:00 Dextrose (D50w Syringe) 50 ml Q15M PRN IV .DECREASED GLUCOSE Last administered on 09/20/18 04:25; Admin Dose 50 ML; Start 09/19/18 at 00:00 Eye Lubricant (Akwa Oint) 1 applic Q6 BOTH EYES Last administered on 09/24/18 05:26; Admin Dose 1 APPLIC; Start 09/19/18 at 00:43 Vecuronium [place] 100 mg/ Dextrose 100 ml @ 0 mls/hr TITRATE IV Last administered on 09/19/18 03:00; Admin Dose 3.6 MLS/HR; Start 09/19/18 at 03:00 Midazolam HCl 50 ml @ 1 mls/hr TITRATE IV Last administered on 09/21/18 08:07; Admin Dose 8 MLS/HR; Start 09/19/18 at 04:30 Fentanyl 100 ml @ 2.5 mls/hr TITRATE IV Last administered on 09/23/18 00:35; Admin Dose 5 MLS/HR; Start 09/19/18 at 14:00 Albuterol (Ventolin Hfa) 4 puff Q6H RESP THERAPY INH Last administered on 09/24/18 03:41; Admin Dose 4 PUFF; Start 09/20/18 at 08:30 Ipratropium [place] (Atrovent Hfa) 4 puff Q6H RESP THERAPY INH Last administered on 09/23/18 21:39; Admin Dose 4 PUFF; Start 09/20/18 at 08:30 Methylprednisolone Sodium Succinate (Solu-Medrol) 40 mg Q8 IV Last administered on 09/24/18 05:26; Admin Dose 40 MG; Start 09/20/18 at 09:30 Diagnostic Test (Pha) (Accu-Chek) 1 ea Q4H XX Last administered on 09/24/18 09:19; Admin Dose 1 EA; Start 09/20/18 at 12:00 Dexmedetomidine HCl 200 mcg/ Sodium Chloride 50 ml @ 0 mls/hr TITRATE IV Last administered on 09/23/18 14:01; Admin Dose 0.1 MLS/HR; Start 09/22/18 at 10:30 Famotidine (Pepcid Iv) 20 mg BID IV Last administered on 09/24/18 09:18; Admin Dose 20 MG; Start 09/23/18 at 09:00 Propofol 100 ml @ 2.19 mls/hr Q12H IV Last administered on 09/22/18 22:55; Admin Dose 8.76 MLS/HR; Start 09/22/18 at 23:00 Lorazepam (Ativan) 1 mg Q4 PRN IV AGITATION Last administered on 09/24/18 02:30; Admin Dose 1 MG; Start 09/23/18 at 02:00 ISRRAEL CAICEDO Sep 24, 2018 09:31
[2018-09-24] MEDS ORDERED: ALBUTEROL/IPRATROPIUM (NEB) 3 ML AMP HHN PRN (10:30)
[2018-09-24] MEDS: PROPOFOL 100 ML IV SCH ×2 (11:00→23:00)
--- NOTE | 2018-09-24 13:27 | PN ---
Date/Time of Note Date/Time of Note DATE: 09/24/18 TIME: 13:26 Assessment/Plan VTE Prophylaxis Risk score (from Nsg)>0 risk: 8 SCD applied (from Nsg): Yes Pharmacological prophylaxis: heparin Lines/Catheters IV Catheter Type (from Nrsg): Central Line Central line still needed: No Urinary Cath still in place: Yes Reason Cath still needed: urinary retention Assessment/Plan Hospital Course 43 yo male with overdose leading to cardiac arrest with ROSC, now s/p mechanical ventilation and breathing comfortable on RA - Continue to monitor him for resolution of encephelopahty. Unclear where his neurological status will settle. Hold sedatives - Strep bactremia - > continue zoysn - Drug cessation - PT/OT Result Diagram: 09/23/1842909/23/18 043 Results 24hrs Laboratory Tests Test 09/23/18 15:31 09/23/18 16:15 09/23/18 20:57 09/23/18 23:51 Bedside Glucose 92 87 100 Blood Gas Specimen Blood arterial Source Arterial Blood 09/23/2018 4:05:00 Date Drawn PM Arterial Blood pH 7.443 (Temp corrected) Arterial Blood 42.0 pCO2 (Temp correct) Arterial Blood pO2 111.4 H (Temp corrected) Arterial Blood 28.1 H HCO3 Arterial Blood 3.6 H Base Excess Arterial Blood 97.3 Oxygen Saturation George Test ACCEPTAB Arterial Blood Gas Right Radial Puncture Site Arterial 0.3 Blood Carboxyhemog lobin Arterial Blood 0.2 Methemoglobin Blood Gas A-a O2 53.2 H Differential Oxyhemoglobin 96.8 Percent Blood Gas 37.0 Temperature Blood Gas Actual 22 Respiration Rate Blood Gas Modality VENT - CPAP FiO2 30.0 Blood Gas Low PEEP 5.0 Setting Blood Gas Pressure 10 Support Blood Gas Notified dt Whom Blood Gas Notified 09/23/2018 4:13:00 Time PM Test 09/24/18 04:12 09/24/18 09:21 Bedside Glucose 109 105 Subjective 24 Hr Interval Summary Free Text/Dictation Extubated Breathing comfortably on room air Unable to follow commands Exam/Review of Systems Exam Vitals Vital Signs Date Temp Pulse Resp B/P (MAP) Pulse Ox O2 O2 Flow FiO2 Time Delivery Rate 09/24/18 44 12:00 09/24/18 24 130/73 95 Room Air 09:00 (92) 09/24/18 98.4 08:00 09/24/18 2.0 03:04 09/23/18 30 13:14 Intake and Output 09/23/18 09/23/18 09/24/18 1515:00 23:00 07:00 IntakeIntake Total 167.025 ml 100 ml 100 ml OutputOutput Total 450 ml 725 ml 800 ml BalanceBalance -282.975 ml -625 ml -700 ml Constitutional: alert, oriented, well developed Psych: no complaints, nl mood/affect Head: normocephalic, atraumatic Eyes: nl conjunctiva, EOMI, nl lids, nl sclera, PERRL ENMT: nl external ears & nose, nl lips & teeth, nl nasal mucosa & septum Neck: supple, non-tender Respiratory: clear to auscultation, normal air movement Cardiovascular: regular rate and rhythm, nl pulses Gastrointestinal: soft, nl liver, spleen, non-tender Musculoskeletal: nl extremities to inspection, nl gait and stance Extremities: normal pulses Neurological: SUPERVISOR PURIFICATION II-XII intact, nl mental status, nl speech, nl strength Skin: nl turgor; No rash or lesions Lymph: nl lymph nodes Results Results 24hrs Laboratory Tests Test 09/23/18 15:31 09/23/18 16:15 09/23/18 20:57 09/23/18 23:51 Bedside Glucose 92 87 100 Blood Gas Specimen Blood arterial Source Arterial Blood 09/23/2018 4:05:00 Date Drawn PM Arterial Blood pH 7.443 (Temp corrected) Arterial Blood 42.0 pCO2 (Temp correct) Arterial Blood pO2 111.4 H (Temp corrected) Arterial Blood 28.1 H HCO3 Arterial Blood 3.6 H Base Excess Arterial Blood 97.3 Oxygen Saturation George Test ACCEPTAB Arterial Blood Gas Right Radial Puncture Site Arterial 0.3 Blood Carboxyhemog lobin Arterial Blood 0.2 Methemoglobin Blood Gas A-a O2 53.2 H Differential Oxyhemoglobin 96.8 Percent Blood Gas 37.0 Temperature Blood Gas Actual 22 Respiration Rate Blood Gas Modality VENT - CPAP FiO2 30.0 Blood Gas Low PEEP 5.0 Setting Blood Gas Pressure 10 Support Blood Gas Notified dt Whom Blood Gas Notified 09/23/2018 4:13:00 Time PM Test 09/24/18 04:12 09/24/18 09:21 Bedside Glucose 109 105 Medications Medication Current Medications Ondansetron HCl (Zofran Inj) 4 mg Q6H PRN IV NAUSEA AND/OR VOMITING; Start 09/18/18 at 15:00 Piperacillin Sod/ Tazobactam Sod 100 ml @ 200 mls/hr Q8 IVPB Last administered on 09/24/18 05:26; Admin Dose 200 MLS/HR; Start 09/18/18 at 14:44 Acetaminophen (Tylenol Liquid) 500 mg Q6H PO Last administered on 09/22/18 11:56; Admin Dose 500 MG; Start 09/19/18 at 17:30 Meperidine HCl (Demerol) 12.5 mg Q4H PRN IV POST OPERATIVE SHIVERING; Start 09/18/18 at 17:30 Meperidine HCl (Demerol) 25 mg Q4H PRN IV POST OPERATIVE SHIVERING Last admi nistered on 09/18/18 18:26; Admin Dose 25 MG; Start 09/18/18 at 17:30 Eye Lubricant (Artificial Tears Oph) 2 drop Q6 BOTH EYES Last administered on 09/24/18 05:26; Admin Dose 2 DROP; Start 09/18/18 at 18:00 Insulin Human Regular 100 unit/ Sodium Chloride 100 ml @ 0 mls/hr PER PROTOCOL IV ; Start 09/19/18 at 00:45 Miscellaneous Information (* Miscellaneous Pharmacy Order) Treatment of Hypoglycemia: 1.BG 51... Per protocol XX ; Start 09/19/18 at 00:00 Dextrose (D50w Syringe) 25 ml Q15M PRN IV .DECREASED GLUCOSE Last administered on 09/20/18 02:11; Admin Dose 25 ML; Start 09/19/18 at 00:00 Dextrose (D50w Syringe) 50 ml Q15M PRN IV .DECREASED GLUCOSE Last administered on 09/20/18 04:25; Admin Dose 50 ML; Start 09/19/18 at 00:00 Eye Lubricant (Akwa Oint) 1 applic Q6 BOTH EYES Last administered on 09/24/18 05:26; Admin Dose 1 APPLIC; Start 09/19/18 at 00:43 Vecuronium [place] 100 mg/ Dextrose 100 ml @ 0 mls/hr TITRATE IV Last administered on 09/19/18 03:00; Admin Dose 3.6 MLS/HR; Start 09/19/18 at 03:00 Midazolam HCl 50 ml @ 1 mls/hr TITRATE IV Last administered on 09/21/18at 08:07; Admin Dose 8 MLS/HR; Start 09/19/18 at 04:30 Fentanyl 100 ml @ 2.5 mls/hr TITRATE IV Last administered on 09/23/18at 00:35; Admin Dose 5 MLS/HR; Start 09/19/18 at 14:00 Dexmedetomidine HCl 200 mcg/ Sodium Chloride 50 ml @ 0 mls/hr TITRATE IV Last administered on 09/23/18at 14:01; Admin Dose 0.1 MLS/HR; Start 09/22/18 at 10:30 Famotidine (Pepcid Iv) 20 mg BID IV Last administered on 09/24/18at 09:18; Admin Dose 20 MG; Start 09/23/18 at 09:00 Propofol 100 ml @ 2.19 mls/hr Q12H IV Last administered on 09/22/18at 22:55; Admin Dose 8.76 MLS/HR; Start 09/22/18 at 23:00 Lorazepam (Ativan) 1 mg Q4 PRN IV AGITATION Last administered on 09/24/18at 02:30; Admin Dose 1 MG; Start 09/23/18 at 02:00 Albuterol/ Ipratropium (Duoneb) 3 ml Q2H RESP THERAPY PRN HHN SHORTNESS OF BREATH; Start 09/24/18 at 10:30 Diagnostic Test (Pha) (Accu-Chek) 1 ea Q6 XX ; Start 09/24/18 at 18:00 KEYSHA GALLEGO MD Sep 24, 2018 13:27
[2018-09-24] MEDS: MULTIVITAMINS 10 ML, THIAMINE 100 MG, FOLIC ACID 1 MG in SOD CHLORIDE 0.9% 1,000 ML IVPB SCH (18:21)
[2018-09-25] VITALS (28 sets, daily range): BP systolic 116–141; BP diastolic 74–96; PULSE 35–90; RESP 13–25
[2018-09-25] MEDS: DEXTROSE 50% 50 ML SYRINGE IV PRN (02:12)
[2018-09-25] MEDS: MULTIVITAMINS 10 ML, THIAMINE 100 MG, FOLIC ACID 1 MG in SOD CHLORIDE 0.9% 1,000 ML IVPB SCH (04:37)
[2018-09-25] MEDS: ACETAMINOPHEN 650MG/20.3ML CUP PO SCH ×2 (05:30→11:30)
[2018-09-25] MEDS: ARTIFICIAL TEARS 15 ML OPH BOTH EYES SCH ×2 (06:17→12:00)
[2018-09-25] MEDS: PIPER-TAZO 3.375 GM IV (PMX) 100 ML IVPB SCH ×3 (06:17→21:16)
[2018-09-25] MEDS: OCULAR LUBRICANT 3.5 GM OPH OINT BOTH EYES SCH ×2 (06:17→12:00)
[2018-09-25] MEDS: ACCU-CHEK XX SCH ×3 (06:18→17:53)
[2018-09-25] MEDS: POTASSIUM CHLORIDE 50 ML IVPB SCH ×2 (06:45→10:03)
--- NOTE | 2018-09-25 06:58 | CONS ---
Assessment/Plan Assessment/Plan Hospital Course 43 yo M with hx of polysubstance abuse who presents comatose following a cardiac arrest... for which neurology is consulted. Now s/p TTM. s/p Extubation on 09/23 He is with a waxing and waning level of alertness, c/w delirium.. CTH is unremarkable. P: Repeat ammonia level OK to defer additional neuroimaging for now Consider EEG should his mental status continue to wax and wane without obvious precipitant [place] as able Limit sedating medications where possible Other medical management per primary Will follow clinically Consultation Date/Type/Reason Admit Date/Time Sep 18, 2018 at 12:38 Type of Consult Neurology Reason for Consultation ams Requesting Provider: REBEKAH DUMONT Date/Time of Note DATE: 09/25/18 TIME: 06:57 24 HR Interval Summary Free Text/Dictation Continues icu care Exam Vital Signs Vitals Vital Signs Date Temp Pulse Resp B/P (MAP) Pulse Ox O2 O2 Flow FiO2 Time Delivery Rate 09/25/18 48 13 131/83 100 Room Air 06:00 (99) 09/25/18 98.0 04:00 09/24/18 21 19:52 09/24/18 2.0 03:04 Intake and Output 09/24/18 09/24/18 09/25/18 1515:00 23:00 07:00 IntakeIntake Total 100 ml 600 ml 711.2 ml OutputOutput Total 925 ml 3500 ml 1250 ml BalanceBalance -825 ml -2900 ml -538.8 ml Exam PE: Gen Appearance: No Apparent Distress HEENT: Normocephalic Cardiovascular: Regular rate Abdomen: Soft Extremities: Dry NE: The patient was obtunded and sparsely verbal. Opens eyes and grimaces to noxious stimuli. Able to follow simple axial commands with prompting. Cranial nerve examination was limited by mental status. Pupils were equal and reactive to light. There was no afferent pupillary defect. Funduscopic examination was limited. Face was grossly symmetric, w/ present corneal and cough reflexes. Tone was normal. Muscle bulk was normal. I did not see fasciculations. The patient withdrew to noxious stimulation x 4. Coordination and gait testing was limited by mental status. Arm and leg reflexes were within normal limits and symmetric. Boyle's sign was absent. Plantar responses were flexor. DOT HENRY Sep 25, 2018 06:58 AL LEE NP Sep 25, 2018 14:53
[2018-09-25] MEDS ORDERED: DEXTROSE 5%-0.45% NACL 1,000 ML IV SCH (07:00)
--- NOTE | 2018-09-25 09:39 | CONS ---
Assessment/Plan Assessment/Plan Assessment/Plan (Daily) Assessment and recommendations; 1. Patient admitted with cardiac arrest status post hypothermia protocol with marked overall clinical improvement. 2. Mild persistent encephalopathy, improving rapidly. 3. Asthma with interval improvement as well. Patient off systemic steroids. 4. Group C strep bacteremia, most recent cultures are negative. Patient maintained on antibiotic. 5. History of drug abuse. 6. Mild anemia and thrombocytopenia. Continue with supportive care. Remove Pearl catheter as well as restraints. Consultation Date/Type/Reason Admit Date/Time Sep 18, 2018 at 12:38 Initial Consult Date 09/19/18 Type of Consult Pulmonary/critical care Patient is a 43-year-old male who was brought into the hospital after he was found down on [address]. On-site CPR was done with revival of vital signs. Patient has been admitted to ICU and is currently on hypothermia protocol. Past medical history; unremarkable perhaps except for drug abuse. Medications; were reviewed. Patient is currently on fentanyl 70 mics per hour, Versed 6 mg/h, patient is on hypothermia protocol. Other medications were reviewed. Allergies; not available. Social history, positive for drug abuse. Family history; not available. Occupational history; not available. Review of system; unable to be obtained. General exam; young male, orally intubated, sedated and paralyzed. Requesting Provider: REBEKAH DUMONT Date/Time of Note DATE: 09/25/18 TIME: 09:34 24 HR Interval Summary Free Text/Dictation Patient's condition is stable. Mental status is gradually improving but not to the point where the patient is completely oriented x3. Patient denies any shortness of breath. Also is exhibiting markedly improved decline in agitation to the point of complete resolution. General exam; young male, awake alert, currently no distress. Appropriately conversant. Exam/Review of Systems Exam Vitals Vital Signs Date Temp Pulse Resp B/P (MAP) Pulse Ox O2 O2 Flow FiO2 Time Delivery Rate 09/25/18 97.5 49 22 130/79 98 Room Air 08:00 (96) 09/24/18 21 19:52 09/24/18 2.0 03:04 Intake and Output 09/24/18 09/24/18 09/25/18 1515:00 23:00 07:00 IntakeIntake Total 100 ml 600 ml 917.45 ml OutputOutput Total 925 ml 3500 ml 1450 ml BalanceBalance -825 ml -2900 ml -532.55 ml Exam H EENT exam; supple neck, no JVD. No lymphadenopathy. Midline trachea. No thyromegaly. Patient has good dentition. No neck masses. Chest exam; clear to auscultation. S1-S2 audible, no murmurs. Regular rhythm. Abdomen exam; soft, nontender. No organomegaly. Bowel sounds audible. Extremity exam; peripheral edema clubbing. ELECTRONIC DATA INTERCHANGE SPECIALIST exam; no focal deficit. Results Result Diagram: 09/25/18 0400 09/25/18 0400 Results 24hrs Laboratory Tests Test 09/24/18 13:41 09/24/18 18:26 09/24/18 23:55 09/25/18 01:57 Bedside Glucose 96 82 76 69 L Test 09/25/18 03:04 09/25/18 04:00 09/25/18 04:23 09/25/18 06:21 Bedside Glucose 134 70 White Blood Count 10.1 Red Blood Count 4.99 Hemoglobin 11.3 L Hematocrit 35.7 L Mean Corpuscular Volume 71.5 L Mean Corpuscular 22.6 L Hemoglobin Mean Corpuscular 31.7 L Hemoglobin Concent Red Cell Distribution 13.2 Width Platelet Count 230 Mean Platelet Volume 11.3 H Immature Granulocytes % 0.500 H Neutrophils % 58.7 Lymphocytes % 27.8 Monocytes % 12.5 H Eosinophils % 0.3 Basophils % 0.2 Nucleated Red Blood 0.0 Cells % Immature Granulocytes # 0.050 H Neutrophils # 5.9 Lymphocytes # 2.8 Monocytes # 1.3 H Eosinophils # 0.0 Basophils # 0.0 Nucleated Red Blood 0.0 Cells # Sodium Level 140 Potassium Level 2.8 *L Chloride Level 104 Carbon Dioxide Level 30 Anion Gap 6 Blood Urea Nitrogen 13 # Creatinine 0.78 Est Glomerular Filtrat > 60 Rate mL/min Glucose Level 101 Calcium Level 8.6 Magnesium Level 1.9 Test 09/25/18 07:56 Bedside Glucose 76 Medications Medication Current Medications Ondansetron HCl (Zofran Inj) 4 mg Q6H PRN IV NAUSEA AND/OR VOMITING; Start 09/18/18 at 15:00 Piperacillin Sod/ Tazobactam Sod 100 ml @ 200 mls/hr Q8 IVPB Last administered on 4/4/19at 06:17; Admin Dose 200 MLS/HR; Start 09/18/18 at 14:44 Acetaminophen (Tylenol Liquid) 500 mg Q6H PO Last administered on 09/22/18 11:56; Admin Dose 500 MG; Start 09/19/18 at 17:30 Meperidine HCl (Demerol) 12.5 mg Q4H PRN IV POST OPERATIVE SHIVERING; Start 09/18/18 at 17:30 Meperidine HCl (Demerol) 25 mg Q4H PRN IV POST OPERATIVE SHIVERING Last administered on 09/18/18 18:26; Admin Dose 25 MG; Start 09/18/18 at 17:30 Eye Lubricant (Artificial Tears Oph) 2 drop Q6 BOTH EYES Last administered on 09/25/18 06:17; Admin Dose 2 DROP; Start 09/18/18 at 18:00 Insulin Human Regular 100 unit/ Sodium Chloride 100 ml @ 0 mls/hr PER PROTOCOL IV ; Start 09/19/18 at 00:45 Miscellaneous Information (* Miscellaneous Pharmacy Order) Treatment of Hypoglycemia: 1.BG 51... Per protocol XX ; Start 09/19/18 at 00:00 Dextrose (D50w Syringe) 25 ml Q15M PRN IV .DECREASED GLUCOSE Last administered on 09/20/18 02:11; Admin Dose 25 ML; Start 09/19/18 at 00:00 Dextrose (D50w Syringe) 50 ml Q15M PRN IV .DECREASED GLUCOSE Last administered on 09/25/18 02:12; Admin Dose 50 ML; Start 09/19/18 at 00:00 Eye Lubricant (Akwa Oint) 1 applic Q6 BOTH EYES Last administered on 09/25/18 06:17; Admin Dose 1 APPLIC; Start 09/19/18 at 00:43 Vecuronium [place] 100 mg/ Dextrose 100 ml @ 0 mls/hr TITRATE IV Last administered on 09/19/18 03:00; Admin Dose 3.6 MLS/HR; Start 09/19/18 at 03:00 Midazolam HCl 50 ml @ 1 mls/hr TITRATE IV Last administered on 09/21/18 08:07; Admin Dose 8 MLS/HR; Start 09/19/18 at 04:30 Fentanyl 100 ml @ 2.5 mls/hr TITRATE IV Last administered on 09/23/18 00:35; Admin Dose 5 MLS/HR; Start 09/19/18 at 14:00 Dexmedetomidine HCl 200 mcg/ Sodium Chloride 50 ml @ 0 mls/hr TITRATE IV Last administered on 09/23/18 14:01; Admin Dose 0.1 MLS/HR; Start 09/22/18 at 10:30 Famotidine (Pepcid Iv) 20 mg BID IV Last administered on 09/24/18 20:25; Admin Dose 20 MG; Start 09/23/18 at 09:00 Propofol 100 ml @ 2.19 mls/hr Q12H IV Last administered on 09/22/18 22:55; Admin Dose 8.76 MLS/HR; Start 09/22/18 at 23:00 Lorazepam (Ativan) 1 mg Q4 PRN IV AGITATION Last administered on 09/24/18 02:30; Admin Dose 1 MG; Start 09/23/18 at 02:00 Albuterol/ Ipratropium (Duoneb) 3 ml Q2H RESP THERAPY PRN HHN SHORTNESS OF BREATH; Start 09/24/18 at 10:30 Diagnostic Test (Pha) (Accu-Chek) 1 ea Q6 XX Last administered on 09/25/18 06:18; Admin Dose 1 EA; Start 09/24/18 at 18:00 Multivitamins 10 ml/Thiamine HCl 100 mg/Folic Acid 1 mg/Sodium Chloride 1,011.2 ml @ 100 mls/ hr DAILY@09 IVPB Last administered on 09/25/18 04:37; Admin Dose 100 MLS/HR; Start 09/24/18 at 19:00 Potassium Chloride 50 ml @ 25 mls/hr Q2H IVPB Last administered on 09/25/18 06:45; Admin Dose 25 MLS/HR; Start 09/25/18 at 06:30; Stop 09/25/18 at 10:29 Dextrose/Sodium Chloride 1,000 ml @ 40 mls/hr Q24H IV Last administered on 09/25/18 07:02; Admin Dose 40 MLS/HR; Start 09/25/18 at 07:00 ISRRAEL CAICEDO Sep 25, 2018 09:39
[2018-09-25] MEDS: FAMOTIDINE 20 MG INJ IV SCH ×2 (10:03→21:16)
[2018-09-25] MEDS: PROPOFOL 100 ML IV SCH (10:04)
--- NOTE | 2018-09-25 15:18 | PN ---
Date/Time of Note Date/Time of Note DATE: 09/25/18 TIME: 15:17 Assessment/Plan VTE Prophylaxis Risk score (from Nsg)>0 risk: 10 SCD applied (from Nsg): Yes Pharmacological prophylaxis: heparin Lines/Catheters IV Catheter Type (from Nrsg): [place] Urinary Cath still in place: Yes Reason Cath still needed: urinary retention Assessment/Plan Hospital Course 43 yo male with overdose leading to cardiac arrest with ROSC, now s/p mechanical ventilation and breathing comfortable on RA - Continue to monitor him for resolution of encephelopahty. Unclear where his n eurological status will settle. Hold sedatives - Strep bactremia - > continue zoysn - Drug cessation - PT/OT Result Diagram: 09/25/18 0400 09/25/18 0400 Results 24hrs Laboratory Tests Test 09/24/18 18:26 09/24/18 23:55 09/25/18 01:57 09/25/18 03:04 Bedside Glucose 82 76 69 L 134 Test 09/25/18 04:00 09/25/18 04:23 09/25/18 06:21 09/25/18 07:56 White Blood Count 10.1 Red Blood Count 4.99 Hemoglobin 11.3 L Hematocrit 35.7 L Mean Corpuscular Volume 71.5 L Mean Corpuscular 22.6 L Hemoglobin Mean Corpuscular 31.7 L Hemoglobin Concent Red Cell Distribution 13.2 Width Platelet Count 230 Mean Platelet Volume 11.3 H Immature Granulocytes % 0.500 H Neutrophils % 58.7 Lymphocytes % 27.8 Monocytes % 12.5 H Eosinophils % 0.3 Basophils % 0.2 Nucleated Red Blood 0.0 Cells % Immature Granulocytes # 0.050 H Neutrophils # 5.9 Lymphocytes # 2.8 Monocytes # 1.3 H Eosinophils # 0.0 Basophils # 0.0 Nucleated Red Blood 0.0 Cells # Sodium Level 140 Potassium Level 2.8 *L Chloride Level 104 Carbon Dioxide Level 30 Anion Gap 6 Blood Urea Nitrogen 13 # Creatinine 0.78 Est Glomerular Filtrat > 60 Rate mL/min Glucose Level 101 Calcium Level 8.6 Magnesium Level 1.9 Bedside Glucose 70 76 Test 09/25/18 12:10 09/25/18 14:32 Bedside Glucose 86 Ammonia < 9 L Subjective 24 Hr Interval Summary Free Text/Dictation Waking up a bit Still confused however Passed swallow Exam/Review of Systems Exam Vitals Vital Signs Date Temp Pulse Resp B/P (MAP) Pulse Ox O2 O2 Flow FiO2 Time Delivery Rate 09/25/18 43 20 119/77 100 Room Air 13:00 (91) 09/25/18 98.0 12:00 09/24/18 21 19:52 09/24/18 2.0 03:04 Intake and Output 09/24/18 09/24/18 09/25/18 1515:00 23:00 07:00 IntakeIntake Total 100 ml 600 ml 1017.45 ml OutputOutput Total 925 ml 3500 ml 1450 ml BalanceBalance -825 ml -2900 ml -432.55 ml Exam Alert, interactive Deririous [place], regular Clear lungs Spontanesou movements x 4 Results Results 24hrs Laboratory Tests Test 09/24/18 18:26 09/24/18 23:55 09/25/18 01:57 09/25/18 03:04 Bedside Glucose 82 76 69 L 134 Test 09/25/18 04:00 09/25/18 04:23 09/25/18 06:21 09/25/18 07:56 White Blood Count 10.1 Red Blood Count 4.99 Hemoglobin 11.3 L Hematocrit 35.7 L Mean Corpuscular Volume 71.5 L Mean Corpuscular 22.6 L Hemoglobin Mean Corpuscular 31.7 L Hemoglobin Concent Red Cell Distribution 13.2 Width Platelet Count 230 Mean Platelet Volume 11.3 H Immature Granulocytes % 0.500 H Neutrophils % 58.7 Lymphocytes % 27.8 Monocytes % 12.5 H Eosinophils % 0.3 Basophils % 0.2 Nucleated Red Blood 0.0 Cells % Immature Granulocytes # 0.050 H Neutrophils # 5.9 Lymphocytes # 2.8 Monocytes # 1.3 H Eosinophils # 0.0 Basophils # 0.0 Nucleated Red Blood 0.0 Cells # Sodium Level 140 Potassium Level 2.8 *L Chloride Level 104 Carbon Dioxide Level 30 Anion Gap 6 Blood Urea Nitrogen 13 # Creatinine 0.78 Est Glomerular Filtrat > 60 Rate mL/min Glucose Level 101 Calcium Level 8.6 Magnesium Level 1.9 Bedside Glucose 70 76 Test 09/25/18 12:10 09/25/18 14:32 Bedside Glucose 86 Ammonia < 9 L Medications Medication Current Medications Ondansetron HCl (Zofran Inj) 4 mg Q6H PRN IV NAUSEA AND/OR VOMITING; Start 09/18/18 at 15:00 Piperacillin Sod/ Tazobactam Sod 100 ml @ 200 mls/hr Q8 IVPB Last administered on 09/25/18 14:19; Admin Dose 200 MLS/HR; Start 09/18/18 at 14:44 Acetaminophen (Tylenol Liquid) 500 mg Q6H PO Last administered on 09/22/18 11:56; Admin Dose 500 MG; Start 09/19/18 at 17:30 Meperidine HCl (Demerol) 12.5 mg Q4H PRN IV POST OPERATIVE SHIVERING; Start 09/18/18 at 17:30 Meperidine HCl (Demerol) 25 mg Q4H PRN IV POST OPERATIVE SHIVERING Last administered on 09/18/18 18:26; Admin Dose 25 MG; Start 09/18/18 at 17:30 Eye Lubricant (Artificial Tears Oph) 2 drop Q6 BOTH EYES Last administered on 09/25/18 06:17; Admin Dose 2 DROP; Start 09/18/18 at 18:00 Insulin Human Regular 100 unit/ Sodium Chloride 100 ml @ 0 mls/hr PER PROTOCOL IV ; Start 09/19/18 at 00:45 Miscellaneous Information (* Miscellaneous Pharmacy Order) Treatment of Hyp oglycemia: 1.BG 51... Per protocol XX ; Start 09/19/18 at 00:00 Dextrose (D50w Syringe) 25 ml Q15M PRN IV .DECREASED GLUCOSE Last administered on 09/20/18 02:11; Admin Dose 25 ML; Start 09/19/18 at 00:00 Dextrose (D50w Syringe) 50 ml Q15M PRN IV .DECREASED GLUCOSE Last administered on 09/25/18 02:12; Admin Dose 50 ML; Start 09/19/18 at 00:00 Eye Lubricant (Akwa Oint) 1 applic Q6 BOTH EYES Last administered on 09/25/18 06:17; Admin Dose 1 APPLIC; Start 09/19/18 at 00:43 Vecuronium [place] 100 mg/ Dextrose 100 ml @ 0 mls/hr TITRATE IV Last administered on 09/19/18 03:00; Admin Dose 3.6 MLS/HR; Start 09/19/18 at 03:00 Midazolam HCl 50 ml @ 1 mls/hr TITRATE IV Last administered on 09/21/18 08:07; Admin Dose 8 MLS/HR; Start 09/19/18 at 04:30 Fentanyl 100 ml @ 2.5 mls/hr TITRATE IV Last administered on 09/23/18 00:35; Admin Dose 5 MLS/HR; Start 09/19/18 at 14:00 Famotidine (Pepcid Iv) 20 mg BID IV Last administered on 09/25/18 10:03; Admin Dose 20 MG; Start 09/23/18 at 09:00 Propofol 100 ml @ 2.19 mls/hr Q12H IV Last administered on 09/22/18 22:55; Admin Dose 8.76 MLS/HR; Start 09/22/18 at 23:00 Albuterol/ Ipratropium (Duoneb) 3 ml Q2H RESP THERAPY PRN HHN SHORTNESS OF BREATH; Start 09/24/18 at 10:30 Diagnostic Test (Pha) (Accu-Chek) 1 ea Q6 XX Last administered on 09/25/18 12:07; Admin Dose 1 EA; Start 09/24/18 at 18:00 Multivitamins 10 ml/Thiamine HCl 100 mg/Folic Acid 1 mg/Sodium Chloride 1,011.2 ml @ 100 mls/ hr DAILY@09 IVPB Last administered on 09/25/18 04:37; Admin Dose 100 MLS/HR; Start 09/24/18 at 19:00 Dextrose/Sodium Chloride 1,000 ml @ 40 mls/hr Q24H IV Last administered on 09/25/18 07:02; Admin Dose 40 MLS/HR; Start 09/25/18 at 07:00 KEYSHA GALLEGO MD Sep 25, 2018 15:18
--- NOTE | 2018-09-25 16:20 | CONS ---
Assessment/Plan Assessment/Plan Hospital Course (Demo Recall) Sinus bradycardia: HR 40s lowest but always in sinus. Improves with activity (while working with PT). Not pathologic Strep group C bacteremia: repeat cultures negative. Check echo PEA arrest: due to multi drug abuse Acute respiratory failure: extubated 09/23 Encephalopathy: anoxic -check echo -monitor on tele -ok for transfer out of ICU Consultation Date/Type/Reason Admit Date/Time Sep 18, 2018 at 12:38 Date of Consultation: Sep 25, 2018 Type of Consult Cardiology Reason for Consultation bradycardia Requesting Provider: KEYSHA GALLEGO MD Date/Time of Note DATE: 09/25/18 TIME: 16:12 Hx of Present Illness 43 yo M with a h/o drug abuse who was found down on the street and was noted to have cardiac arrest. He was resuscitated successfully. He had multiple drugs on Utox including amphetamines, marijuana, opioids, benzos. He was eventually weaned and extubated 09/23. He remains with encephalopathy but reportedly improving. Cardiology is consulted for bradycardia. He was noted to have sinus bradycardia in the 40s earlier as seen on tele. He walked with PT and his HR improved to the 50s. He is currently resting and with a HR in the 50s. No e/o heart block/pauses. He is unable to provide history. He also had strep group C bacteremia with normal repeat cultures. unable to obtain Past Medical History drug abuse Home Meds Active Scripts Ondansetron (Ondansetron Odt) 4 Mg Tab.rapdis, 4 MG PO Q6H PRN for NAUSEA AND/OR VOMITING, #10 TAB Prov:PAULO LÓPEZ NP 11/14/16 Cephalexin* (Keflex*) 500 Mg Capsule, 500 MG PO QID for 10 Days, CAP Prov:APOLINAR MATOS DO 08/15/16 Sulfamethoxazole-Trimethoprim* (Bactrim* DS) 800-160 Mg Tab, 1 TAB PO BID for 10 Days, TAB Prov:APOLINAR MATOS DO 08/15/16 Prednisone (Prednisone) 50 Mg Tab, 50 MG PO DAILY, #5 TAB Prov:SHANTHI RICHARDS PA-C 10/18/15 Ibuprofen* (Ibuprofen*) 600 Mg Tablet, 600 MG PO Q6, #30 TAB Prov:SHANTHI RICHARDS PA-C 10/18/15 Cephalexin* (Cephalexin*) 500 Mg Capsule, 500 MG PO Q6, #28 CAP Prov:SHANTHI RICHARDS PA-C 10/18/15 Sulfamethoxazole-Trimethoprim* (Bactrim* DS) 800-160 Mg Tab, 1 TAB PO BID, #14 TAB Prov:SHANTHI RICHARDS PA-C 10/18/15 Medications Current Medications Ondansetron HCl (Zofran Inj) 4 mg Q6H PRN IV NAUSEA AND/OR VOMITING; Start 09/18/18 at 15:00 Piperacillin Sod/ Tazobactam Sod 100 ml @ 200 mls/hr Q8 IVPB Last administered on 09/25/18at 14:19; Admin Dose 200 MLS/HR; Start 09/18/18 at 14:44 Acetaminophen (Tylenol Liquid) 500 mg Q6H PO Last administered on 09/22/18at 11:56; Admin Dose 500 MG; Start 09/19/18 at 17:30 Meperidine HCl (Demerol) 12.5 mg Q4H PRN IV POST OPERATIVE SHIVERING; Start 09/18/18 at 17:30 Meperidine HCl (Demerol) 25 mg Q4H PRN IV POST OPERATIVE SHIVERING Last administered on 09/18/18at 18:26; Admin Dose 25 MG; Start 09/18/18 at 17:30 Eye Lubricant (Artificial Tears Oph) 2 drop Q6 BOTH EYES Last administered on 09/25/18at 06:17; Admin Dose 2 DROP; Start 09/18/18 at 18:00 Insulin Human Regular 100 unit/ Sodium Chloride 100 ml @ 0 mls/hr PER PROTOCOL IV ; Start 09/19/18 at 00:45 Miscellaneous Information (* Miscellaneous Pharmacy Order) Treatment of Hypoglycemia: 1.BG 51... Per protocol XX ; Start 09/19/18 at 00:00 Dextrose (D50w Syringe) 25 ml Q15M PRN IV .DECREASED GLUCOSE Last administered on 09/20/18at 02:11; Admin Dose 25 ML; Start 09/19/18 at 00:00 Dextrose (D50w Syringe) 50 ml Q15M PRN IV .DECREASED GLUCOSE Last administered on 09/25/18at 02:12; Admin Dose 50 ML; Start 09/19/18 at 00:00 Eye Lubricant (Akwa Oint) 1 applic Q6 BOTH EYES Last administered on 09/25/18 06:17; Admin Dose 1 APPLIC; Start 09/19/18 at 00:43 Vecuronium Dixie 100 mg/ Dextrose 100 ml @ 0 mls/hr TITRATE IV Last admin istered on 09/19/18 03:00; Admin Dose 3.6 MLS/HR; Start 09/19/18 at 03:00 Midazolam HCl 50 ml @ 1 mls/hr TITRATE IV Last administered on 09/21/18 08:07; Admin Dose 8 MLS/HR; Start 09/19/18 at 04:30 Fentanyl 100 ml @ 2.5 mls/hr TITRATE IV Last administered on 09/23/18 00:35; Admin Dose 5 MLS/HR; Start 09/19/18 at 14:00 Famotidine (Pepcid Iv) 20 mg BID IV Last administered on 09/25/18 10:03; Admin Dose 20 MG; Start 09/23/18 at 09:00 Propofol 100 ml @ 2.19 mls/hr Q12H IV Last administered on 09/22/18 22:55; Admin Dose 8.76 MLS/HR; Start 09/22/18 at 23:00 Albuterol/ Ipratropium (Duoneb) 3 ml Q2H RESP THERAPY PRN HHN SHORTNESS OF BREATH; Start 09/24/18 at 10:30 Diagnostic Test (Pha) (Accu-Chek) 1 ea Q6 XX Last administered on 09/25/18 12:07; Admin Dose 1 EA; Start 09/24/18 at 18:00 Multivitamins 10 ml/Thiamine HCl 100 mg/Folic Acid 1 mg/Sodium Chloride 1,011.2 ml @ 100 mls/ hr DAILY@09 IVPB Last administered on 09/25/18 04:37; Admin Dose 100 MLS/HR; Start 09/24/18 at 19:00 Dextrose/Sodium Chloride 1,000 ml @ 40 mls/hr Q24H IV Last administered on 09/25/18 07:02; Admin Dose 40 MLS/HR; Start 09/25/18 at 07:00 Allergies: Coded Allergies: No Known Allergy (Unverified , 11/14/16) Social History Smoking Status: Unknown if ever smoked Exam/Review of Systems Exam Vitals Vital Signs Date Temp Pulse Resp B/P (MAP) Pulse Ox O2 O2 Flow FiO2 Time Delivery Rate 09/25/18 50 17 124/82 100 Room Air 15:00 (96) 09/25/18 98.0 12:00 09/24/18 21 19:52 09/24/18 2.0 03:04 Intake and Output 09/24/18 09/24/18 09/25/18 1515:00 23:00 07:00 IntakeIntake Total 100 ml 600 ml 1017.45 ml OutputOutput Total 925 ml 3500 ml 1450 ml BalanceBalance -825 ml -2900 ml -432.55 ml Constitutional: No alert (somnolent ), No distress Head: normocephalic, atraumatic Neck: No jvd Respiratory: No clear to auscultation Cardiovascular: regular rate and rhythm; No edema, No systolic murmur Gastrointestinal: soft, non-tender; No distended Neurological: No nl mental status, No nl speech Results Result Diagram: 09/25/18 0400 09/25/18 0400 Results 24hrs Laboratory Tests Test 09/24/18 18:26 09/24/18 23:55 09/25/18 01:57 09/25/18 03:04 Bedside Glucose 82 76 69 L 134 Test 09/25/18 04:00 09/25/18 04:23 09/25/18 06:21 09/25/18 07:56 White Blood Count 10.1 Red Blood Count 4.99 Hemoglobin 11.3 L Hematocrit 35.7 L Mean Corpuscular Volume 71.5 L Mean Corpuscular 22.6 L Hemoglobin Mean Corpuscular 31.7 L Hemoglobin Concent Red Cell Distribution 13.2 Width Platelet Count 230 Mean Platelet Volume 11.3 H Immature Granulocytes % 0.500 H Neutrophils % 58.7 Lymphocytes % 27.8 Monocytes % 12.5 H Eosinophils % 0.3 Basophils % 0.2 Nucleated Red Blood 0.0 Cells % Immature Granulocytes # 0.050 H Neutrophils # 5.9 Lymphocytes # 2.8 Monocytes # 1.3 H Eosinophils # 0.0 Basophils # 0.0 Nucleated Red Blood 0.0 Cells # Sodium Level 140 Potassium Level 2.8 *L Chloride Level 104 Carbon Dioxide Level 30 Anion Gap 6 Blood Urea Nitrogen 13 # Creatinine 0.78 Est Glomerular Filtrat > 60 Rate mL/min Glucose Level 101 Calcium Level 8.6 Magnesium Level 1.9 Bedside Glucose 70 76 Test 09/25/18 12:10 09/25/18 14:32 Bedside Glucose 86 Ammonia < 9 L Medications Medication Current Medications Ondansetron HCl (Zofran Inj) 4 mg Q6H PRN IV NAUSEA AND/OR VOMITING; Start 09/18/18 at 15:00 Piperacillin Sod/ Tazobactam Sod 100 ml @ 200 mls/hr Q8 IVPB Last administered on 09/25/18 14:19; Admin Dose 200 MLS/HR; Start 09/18/18 at 14:44 Acetaminophen (Tylenol Liquid) 500 mg Q6H PO Last administered on 09/22/18 11:56; Admin Dose 500 MG; Start 09/19/18 at 17:30 Meperidine HCl (Demerol) 12.5 mg Q4H PRN IV POST OPERATIVE SHIVERING; Start 09/18/18 at 17:30 Meperidine HCl (Demerol) 25 mg Q4H PRN IV POST OPERATIVE SHIVERING Last administered on 09/18/18 18:26; Admin Dose 25 MG; Start 09/18/18 at 17:30 Eye Lubricant (Artificial Tears Oph) 2 drop Q6 BOTH EYES Last administered on 09/25/18 06:17; Admin Dose 2 DROP; Start 09/18/18 at 18:00 Insulin Human Regular 100 unit/ Sodium Chloride 100 ml @ 0 mls/hr PER PROTOCOL IV ; Start 09/19/18 at 00:45 Miscellaneous Information (* Miscellaneous Pharmacy Order) Treatment of Hy poglycemia: 1.BG 51... Per protocol XX ; Start 09/19/18 at 00:00 Dextrose (D50w Syringe) 25 ml Q15M PRN IV .DECREASED GLUCOSE Last administered on 09/20/18 02:11; Admin Dose 25 ML; Start 09/19/18 at 00:00 Dextrose (D50w Syringe) 50 ml Q15M PRN IV .DECREASED GLUCOSE Last administered on 09/25/18 02:12; Admin Dose 50 ML; Start 09/19/18 at 00:00 Eye Lubricant (Akwa Oint) 1 applic Q6 BOTH EYES Last administered on 09/25/18 06:17; Admin Dose 1 APPLIC; Start 09/19/18 at 00:43 Vecuronium Dixie 100 mg/ Dextrose 100 ml @ 0 mls/hr TITRATE IV Last administered on 09/19/18 03:00; Admin Dose 3.6 MLS/HR; Start 09/19/18 at 03:00 Midazolam HCl 50 ml @ 1 mls/hr TITRATE IV Last administered on 09/21/18 08:07; Admin Dose 8 MLS/HR; Start 09/19/18 at 04:30 Fentanyl 100 ml @ 2.5 mls/hr TITRATE IV Last administered on 09/23/18 00:35; Admin Dose 5 MLS/HR; Start 09/19/18 at 14:00 Famotidine (Pepcid Iv) 20 mg BID IV Last administered on 09/25/18 10:03; Admin Dose 20 MG; Start 09/23/18 at 09:00 Propofol 100 ml @ 2.19 mls/hr Q12H IV Last administered on 09/22/18 22:55; Admin Dose 8.76 MLS/HR; Start 09/22/18 at 23:00 Albuterol/ Ipratropium (Duoneb) 3 ml Q2H RESP THERAPY PRN HHN SHORTNESS OF BREATH; Start 09/24/18 at 10:30 Diagnostic Test (Pha) (Accu-Chek) 1 ea Q6 XX Last administered on 09/25/18 12:07; Admin Dose 1 EA; Start 09/24/18 at 18:00 Multivitamins 10 ml/Thiamine HCl 100 mg/Folic Acid 1 mg/Sodium Chloride 1,011.2 ml @ 100 mls/ hr DAILY@09 IVPB Last administered on 09/25/18 04:37; Admin Dose 100 MLS/HR; Start 09/24/18 at 19:00 Dextrose/Sodium Chloride 1,000 ml @ 40 mls/hr Q24H IV Last administered on 09/25/18 07:02; Admin Dose 40 MLS/HR; Start 09/25/18 at 07:00 FABIÁN CASTANEDA Sep 25, 2018 16:20
[2018-09-26] VITALS (12 sets, daily range): BP systolic 109–139; BP diastolic 61–75; PULSE 44–66; RESP 16–18
[2018-09-26] MEDS: PIPER-TAZO 3.375 GM IV (PMX) 100 ML IVPB SCH ×3 (06:10→21:40)
[2018-09-26] MEDS: ACCU-CHEK XX SCH ×4 (06:19→17:54)
--- NOTE | 2018-09-26 07:50 | CONS ---
Assessment/Plan Assessment/Plan Hospital Course 43 yo M with hx of polysubstance abuse who presents comatose following a cardiac arrest... for which neurology is consulted. Now s/p TTM. s/p Extubation on 09/23 He is without evidence of significant hypoxic-ischemic cerebral injury.. CTH is unremarkable. P: [place] as able Limit sedating medications where possible Other medical management per primary Will follow clinically Consultation Date/Type/Reason Admit Date/Time Sep 18, 2018 at 12:38 Type of Consult Neurology Reason for Consultation ams Requesting Provider: KEYSHA GALLEGO MD Date/Time of Note DATE: 09/26/18 TIME: 07:50 24 HR Interval Summary Free Text/Dictation Continues acute care. Exam Vital Signs Vitals Vital Signs Date Temp Pulse Resp B/P (MAP) Pulse Ox O2 O2 Flow FiO2 Time Delivery Rate 09/26/18 98.9 59 18 109/71 95 Room Air 07:17 (84) 09/24/18 21 19:52 09/24/18 2.0 03:04 Intake and Output 09/25/18 09/25/18 09/26/18 1515:00 23:00 07:00 IntakeIntake Total 1390 ml 1020 ml OutputOutput Total 1500 ml 960 ml BalanceBalance -110 ml 60 ml Exam PE: Gen Appearance: Agitated HEENT: Normocephalic Cardiovascular: Regular rate Abdomen: Soft Extremities: Dry NE: The patient was alert, though somewhat disoriented. Language was normal. Judgment poor. Fund of knowledge was limited. Pupils were equal and reactive to light. There was no afferent pupillary defect. Visual soto were normal. Funduscopic examination was limited. Extra-ocular movements were full. Ptosis was absent. There was no nystagmus. Facial sensation was normal. Face was symmetric with normal strength. Hearing was intact. Palate movements were normal. Neck strength was normal. There was normal tongue bulk and speed of movement. Tone was normal. Muscle bulk was normal. I did not see fasciculations. Arms and legs were strong. Vibration sensation was normal. Temperature and pinprick sensation was normal. Rapid alternating movements were normal. There was no dysmetria. There was no intention tremor. Gait was deferred due to bedrest. Arm and leg reflexes were 2+ and symmetric. Boyle's sign was absent. Plantar responses were flexor. DOT HENRY Sep 26, 2018 07:50 AL LEE NP Sep 26, 2018 13:00
--- NOTE | 2018-09-26 09:35 | CONS ---
Assessment/Plan Assessment/Plan Assessment/Plan (Daily) Assessment and recommendations; 1. Patient admitted with cardiac arrest status post CPR due to drug overdose with significant improvement in overall clinical status. 2. Acute encephalopathy with interval improvement as well. 3. Group C Streptococcus bacteremia, currently on Zosyn. Most recent cultures are negative. 4. Sinus bradycardia. It is not dramatic. Patient has remained hemodynamic ally stable. 5. History of drug abuse. 6. History of asthma. Continue current supportive care. Consultation Date/Type/Reason Admit Date/Time Sep 18, 2018 at 12:38 Initial Consult Date 09/19/18 Type of Consult Pulmonary/critical care Patient is a 43-year-old male who was brought into the hospital after he was found down on the street. On-site CPR was done with revival of vital signs. Patient has been admitted to ICU and is currently on hypothermia protocol. Past medical history; unremarkable perhaps except for drug abuse. Medications; were reviewed. Patient is currently on fentanyl 70 mics per hour, Versed 6 mg/h, patient is on hypothermia protocol. Other medications were reviewed. Allergies; not available. Social history, positive for drug abuse. Family history; not available. Occupational history; not available. Review of system; unable to be obtained. General exam; young male, orally intubated, sedated and paralyzed. Requesting Provider: KEYSHA GALLEGO MD Date/Time of Note DATE: 09/26/18 TIME: 09:33 24 HR Interval Summary Free Text/Dictation Patient's condition is stable. Has been transferred to medical floor from ICU. Has remained hemodynamically stable. Patient exhibiting continued improvement in mental status. Denies any shortness of breath, coughing, wheezing. General exam; young male, awake alert, currently in no distress. Exam/Review of Systems Exam Vitals Vital Signs Date Temp Pulse Resp B/P (MAP) Pulse Ox O2 O2 Flow FiO2 Time Delivery Rate 09/26/18 44 08:15 09/26/18 98.9 18 109/71 95 Room Air 07:17 (84) 09/24/18 21 19:52 09/24/18 2.0 03:04 Intake and Output 09/25/18 09/25/18 09/26/18 1414:59 22:59 06:59 IntakeIntake Total 1236.25 ml 1290 ml 90 ml OutputOutput Total 1500 ml 1160 ml 0 ml BalanceBalance -263.75 ml 130 ml 90 ml Exam H EENT exam; supple neck, no JVD. No lymphadenopathy. Midline trachea. No thyromegaly. Patient is good dentition. No neck masses. Chest exam; clear to auscultation. S1-S2 audible, no murmurs. Regular rhythm. Abdomen exam; soft, no organomegaly. Bowel sounds audible. Extremity exam; peripheral edema clubbing. QUALITY ASSURANCE TEST PROGRAM MANAGER exam; no focal deficit. Patient still is mildly confused to place and year. Results Result Diagram: 09/25/18 0400 09/25/18 0400 Results 24hrs Laboratory Tests Test 09/25/18 12:10 09/25/18 14:32 09/25/18 17:23 09/26/18 01:21 Bedside Glucose 86 118 114 Ammonia < 9 L Test 09/26/18 06:19 Bedside Glucose 97 Medications Medication Current Medications Ondansetron HCl (Zofran Inj) 4 mg Q6H PRN IV NAUSEA AND/OR VOMITING; Start 09/18/18 at 15:00 Piperacillin Sod/ Tazobactam Sod 100 ml @ 200 mls/hr Q8 IVPB Last administered on 09/26/18at 06:10; Admin Dose 200 MLS/HR; Start 09/18/18 at 14:44 Miscellaneous Information (* Miscellaneous Pharmacy Order) Treatment of Hypogl ycemia: 1.BG 51... Per protocol XX ; Start 09/19/18 at 00:00 Dextrose (D50w Syringe) 25 ml Q15M PRN IV .DECREASED GLUCOSE Last administered on 09/20/18at 02:11; Admin Dose 25 ML; Start 09/19/18 at 00:00 Dextrose (D50w Syringe) 50 ml Q15M PRN IV .DECREASED GLUCOSE Last administered on 09/25/18at 02:12; Admin Dose 50 ML; Start 09/19/18 at 00:00 Famotidine (Pepcid Iv) 20 mg BID IV Last administered on 09/25/18at 21:16; Admin Dose 20 MG; Start 09/23/18 at 09:00 Albuterol/ Ipratropium (Duoneb) 3 ml Q2H RESP THERAPY PRN HHN SHORTNESS OF BREATH; Start 09/24/18 at 10:30 Diagnostic Test (Pha) (Accu-Chek) 1 ea Q6 XX Last administered on 09/26/18at 06:19; Admin Dose 1 EA; Start 09/24/18 at 18:00 Multivitamins 10 ml/Thiamine HCl 100 mg/Folic Acid 1 mg/Sodium Chloride 1,011.2 ml @ 100 mls/ hr DAILY@09 IVPB Last administered on 09/25/18at 04:37; Admin Dose 100 MLS/HR; Start 09/24/18 at 19:00 ISRRAEL CAICEDO Sep 26, 2018 09:35
[2018-09-26] MEDS: MULTIVITAMINS 10 ML, THIAMINE 100 MG, FOLIC ACID 1 MG in SOD CHLORIDE 0.9% 1,000 ML IVPB SCH (10:33)
[2018-09-26] MEDS: FAMOTIDINE 20 MG INJ IV SCH (10:33)
--- NOTE | 2018-09-26 13:03 | PN ---
Date/Time of Note Date/Time of Note DATE: 09/26/18 TIME: 13:02 Assessment/Plan VTE Prophylaxis Risk score (from Nsg)>0 risk: 1 SCD applied (from Nsg): Yes Pharmacological prophylaxis: heparin Lines/Catheters IV Catheter Type (from Nrsg): Saline Lock Urinary Cath still in place: Yes Reason Cath still needed: urinary retention Assessment/Plan Hospital Course 43 yo male with overdose leading to cardiac arrest with ROSC, now s/p mechanical ventilation and breathing comfortable on RA - Continue to monitor him for resolution of encephelopahty. Unclear where his neurological status will settle. Hold sedatives - Strep bactremia - > continue zoysn. TTE pending - Drug cessation - PT/OT Result Diagram: 09/25/18 0400 09/25/18 0400 Results 24hrs Laboratory Tests Test 09/25/18 14:32 09/25/18 17:23 09/26/18 01:21 09/26/18 06:19 Ammonia < 9 L Bedside Glucose 118 114 97 Subjective 24 Hr Interval Summary Free Text/Dictation Doing much better Mental status normalizing No motor deficits Exam/Review of Systems Exam Vitals Vital Signs Date Temp Pulse Resp B/P (MAP) Pulse Ox O2 O2 Flow FiO2 Time Delivery Rate 09/26/18 45 12:16 09/26/18 98.3 16 112/62 96 Room Air 11:43 (79) 09/24/18 21 19:52 09/24/18 2.0 03:04 Intake and Output 09/25/18 09/25/18 09/26/18 1515:00 23:00 07:00 IntakeIntake Total 1390 ml 1020 ml OutputOutput Total 1500 ml 960 ml BalanceBalance -110 ml 60 ml Constitutional: alert, oriented, well developed Psych: no complaints, nl mood/affect Head: normocephalic, atraumatic Eyes: nl conjunctiva, EOMI, nl lids, nl sclera, PERRL ENMT: nl external ears & nose, nl lips & teeth, nl nasal mucosa & septum Neck: supple, non-tender Respiratory: clear to auscultation, normal air movement Cardiovascular: regular rate and rhythm, nl pulses Gastrointestinal: soft, nl liver, spleen, non-tender Musculoskeletal: nl extremities to inspection, nl gait and stance Extremities: normal pulses Neurological: ANIMAL IMPERSONATOR II-XII intact, nl mental status, nl speech, nl strength Skin: nl turgor; No rash or lesions Lymph: nl lymph nodes Results Results 24hrs Laboratory Tests Test 09/25/18 14:32 09/25/18 17:23 09/26/18 01:21 09/26/18 06:19 Ammonia < 9 L Bedside Glucose 118 114 97 Medications Medication Current Medications Ondansetron HCl (Zofran Inj) 4 mg Q6H PRN IV NAUSEA AND/OR VOMITING; Start 09/18/18 at 15:00 Piperacillin Sod/ Tazobactam Sod 100 ml @ 200 mls/hr Q8 IVPB Last administered on 09/26/18 12:57; Admin Dose 200 MLS/HR; Start 09/18/18 at 14:44 Miscellaneous Information (* Miscellaneous Pharmacy Order) Treatment of Hypoglycemia: 1.BG 51... Per protocol XX ; Start 09/19/18 at 00:00 Dextrose (D50w Syringe) 25 ml Q15M PRN IV .DECREASED GLUCOSE Last administered on 09/20/18 02:11; Admin Dose 25 ML; Start 09/19/18 at 00:00 Dextrose (D50w Syringe) 50 ml Q15M PRN IV .DECREASED GLUCOSE Last administered on 09/25/18 02:12; Admin Dose 50 ML; Start 09/19/18 at 00:00 Famotidine (Pepcid Iv) 20 mg BID IV Last administered on 09/26/18 10:33; Admin Dose 20 MG; Start 09/23/18 at 09:00 Albuterol/ Ipratropium (Duoneb) 3 ml Q2H RESP THERAPY PRN HHN SHORTNESS OF BREATH; Start 09/24/18 at 10:30 Diagnostic Test (Pha) (Accu-Chek) 1 ea Q6 XX Last administered on 09/26/18 12:05; Admin Dose 1 EA; Start 09/24/18 at 18:00 Multivitamins 10 ml/Thiamine HCl 100 mg/Folic Acid 1 mg/Sodium Chloride 1,011.2 ml @ 100 mls/ hr DAILY@09 IVPB Last administered on 09/26/18 10:33; Admin Dose 100 MLS/HR; Start 09/24/18 at 19:00 KEYSHA GALLEGO MD Sep 26, 2018 13:03
--- NOTE | 2018-09-26 13:23 | RADRPT ---
Echocardiogram Report Patient Name: Melody KOCH ID: [id number] : 1975 (43y 5m)Study Date: 09/26/2018 9:54:57 AM Gender: Amritacession #: [id number] Tech: [email or web address] Location: Ref.Physician: FABIÁN SMITH Height(Cm): BSA: Weight(Kg): Quality: GoodAccount #: Procedures: Echocardiographic Report: Transthoracic echocardiogram with complete 2D, M-Mode, and doppler examination. Indications: Evaluate Left Ventricular function, and Bradycardia. Measurements: 2D/M Mode Doppler Measurement Value Normal Range Measurement Value Normal Range AoR Diam MM 2.6 [ 2.6 - 3.4 ] cm NEVA Vmax 2.0 [ 2.0 - 4.0 ] cm2 ACS MM 1.9 [ 3.1 - 3.7 ] cm AV Mean Jorge 1.0 [ 70.0 - 90.0 ] cm/sec LA/Ao MM 1.2 ratio AV Mean PG 4.0 [ 2.0 - 4.0 ] mmHg LA Dimen MM 3.2 AV Peak Jorge 1.4 [ 100.0 - 170.0 ] cm/sec LVIDd 2D 4.7 [ 4.2 - 5.8 ] cm AV Peak PG 7.0 [ 2.0 - 9.0 ] mmHg LVIDs 2D 3.2 [ 2.5 - 4.0 ] cm AV VTI 28.5 cm LVPWd 2D 1.0 [ 0.6 - 1.0 ] cm LVOT Peak Jorge 1.1 [ 70.0 - 110.0 ] cm/sec IVSd 2D 1.0 [ 0.6 - 1.0 ] cm LVOT Peak PG 5.0 [ 2.0 - 6.0 ] mmHg LVOT Diam 1.8 [ 2.3 - 2.9 ] cm MV E Peak Jorge 0.7 [ 60.0 - 130.0 ] cm/sec LVOT Area 2.5 cm2 MV A Peak Jorge 0.5 [ 100.0 - 120.0 ] cm/sec MV E/A 1.3 [ 0.8 - 1.5 ] ratio MV Decel Time 310 [ 104 - 258 ] msec Lat E` Jorge 0.1 [ 10.0 - 15.0 ] cm/sec Med E` Jorge 0.1 cm/sec MV E/A 1.3 [ 0.8 - 1.5 ] ratio PV Peak Jorge 0.8 [ 40.0 - 80.0 ] cm/sec PV Peak PG 2.0 mmHg Findings: Left Ventricle: Normal left ventricular systolic function. Normal left ventricular cavity size. Normal left ventricular wall thickness. Ejection fraction is visually estimated at 60 %. Tissue Doppler/Mitral Doppler indices are within normal limits. Right Ventricle: Normal right ventricular size. Normal right ventricular systolic function. Left Atrium: The left atrium is normal in size. Right Atrium: The right atrium is normal in size. Mitral Valve: Normal appearance of the mitral valve. Trace mitral regurgitation. Aortic Valve: Normal appearance of the aortic valve. No significant aortic stenosis or insufficiency. Tricuspid Valve: Normal appearance of the tricuspid valve. Unable to obtain RVSP due to minimal presence of tricuspid regurgitation. There is trace tricuspid regurgitation. Pulmonic Valve: Normal pulmonic valve appearance. There is trace pulmonic regurgitation. Pericardium: Normal pericardium with no significant pericardial effusion. Aorta: Normal aortic root. IVC: Normal size and normal respiratory collapse consistent with normal right atrial pressure. Conclusions: Normal left ventricular systolic function. Normal left ventricular cavity size. Normal left ventricular wall thickness. Ejection fraction is visually estimated at 60 %. Tissue Doppler/Mitral Doppler indices are within normal limits. No significant valvular stenosis or regurgitation seen. Unable to obtain RVSP due to minimal presence of tricuspid regurgitation. Normal size and normal respiratory collapse consistent with normal right atrial pressure. Electronically Signed By: Fabián Smith 2018-09-26 13:23:05 PDT
--- NOTE | 2018-09-26 13:45 | CONS ---
Assessment/Plan Assessment/Plan Hospital Course (Demo Recall) Sinus bradycardia: HR 40s lowest but always in sinus. Improves with activity (while working with PT). Not pathologic Strep group C bacteremia: repeat cultures negative. Echo with normal valvular function and EF PEA arrest: due to multi drug abuse Acute respiratory failure: extubated 09/23 Encephalopathy: anoxic, improving Will see PRN Consultation Date/Type/Reason Admit Date/Time Sep 18, 2018 at 12:38 Initial Consult Date 09/25/18 Type of Consult Cardiology Requesting Provider: KEYSHA GALLEGO MD Date/Time of Note DATE: 09/26/18 TIME: 13:44 24 HR Interval Summary Free Text/Dictation Sinus bradycardia mostly while sleeping. Otherwise no issues. Awake and interactive today Exam/Review of Systems Vital Signs Vitals Vital Signs Date Temp Pulse Resp B/P (MAP) Pulse Ox O2 O2 Flow FiO2 Time Delivery Rate 09/26/18 45 12:16 09/26/18 98.3 16 112/62 96 Room Air 11:43 (79) 09/24/18 21 19:52 09/24/18 2.0 03:04 Intake and Output 09/25/18 09/25/18 09/26/18 1515:00 23:00 07:00 IntakeIntake Total 1390 ml 1020 ml OutputOutput Total 1500 ml 960 ml BalanceBalance -110 ml 60 ml Exam Constitutional: alert, oriented Neck: supple; No jvd Respiratory: clear to auscultation; No crackles/rales Cardiovascular: regular rate and rhythm; No edema Gastrointestinal: soft, non-tender; No distended Musculoskeletal: nl extremities to inspection Labs Result Diagram: 09/25/18 0400 09/25/18 0400 Results 24hrs Laboratory Tests Test 09/25/18 14:32 09/25/18 17:23 09/26/18 01:21 09/26/18 06:19 Ammonia < 9 L Bedside Glucose 118 114 97 Medications Medications Current Medications Ondansetron HCl (Zofran Inj) 4 mg Q6H PRN IV NAUSEA AND/OR VOMITING; Start 09/18/18 at 15:00 Piperacillin Sod/ Tazobactam Sod 100 ml @ 200 mls/hr Q8 IVPB Last administered on 09/26/18at 12:57; Admin Dose 200 MLS/HR; Start 09/18/18 at 14:44 Miscellaneous Information (* Miscellaneous Pharmacy Order) Treatment of Hypoglycemia: 1.BG 51... Per protocol XX ; Start 09/19/18 at 00:00 Dextrose (D50w Syringe) 25 ml Q15M PRN IV .DECREASED GLUCOSE Last administered on 09/20/18 02:11; Admin Dose 25 ML; Start 09/19/18 at 00:00 Dextrose (D50w Syringe) 50 ml Q15M PRN IV .DECREASED GLUCOSE Last administered on 09/25/18 02:12; Admin Dose 50 ML; Start 09/19/18 at 00:00 Famotidine (Pepcid Iv) 20 mg BID IV Last administered on 09/26/18 10:33; Admin Dose 20 MG; Start 09/23/18 at 09:00 Albuterol/ Ipratropium (Duoneb) 3 ml Q2H RESP THERAPY PRN HHN SHORTNESS OF BREATH; Start 09/24/18 at 10:30 Diagnostic Test (Pha) (Accu-Chek) 1 ea Q6 XX Last administered on 09/26/18 12:05; Admin Dose 1 EA; Start 09/24/18 at 18:00 Multivitamins 10 ml/Thiamine HCl 100 mg/Folic Acid 1 mg/Sodium Chloride 1,011.2 ml @ 100 mls/ hr DAILY@09 IVPB Last administered on 09/26/18 10:33; Admin Dose 100 MLS/HR; Start 09/24/18 at 19:00 FABIÁN CASTANEDA Sep 26, 2018 13:45
[2018-09-26] MEDS: FAMOTIDINE 20 MG TAB PO SCH (20:55)
[2018-09-27] VITALS (12 sets, daily range): BP systolic 107–151; BP diastolic 62–87; PULSE 54–130; RESP 16–20
[2018-09-27] MEDS: ACCU-CHEK XX SCH ×4 (02:30→18:05)
[2018-09-27] MEDS: PIPER-TAZO 3.375 GM IV (PMX) 100 ML IVPB SCH ×3 (05:42→21:33)
[2018-09-27] MEDS: FAMOTIDINE 20 MG TAB PO SCH ×2 (08:35→20:41)
[2018-09-27] MEDS: MULTIVITAMINS 10 ML, THIAMINE 100 MG, FOLIC ACID 1 MG in SOD CHLORIDE 0.9% 1,000 ML IVPB SCH (08:38)
--- NOTE | 2018-09-27 12:26 | PDOCDIS ---
Discharge Instructions DIAGNOSIS Discharge Diagnosis Cardiac arrest CONDITION [id number] Patient Condition: Delol0p Stable FOLLOW UP/APPOINTMENTS Follow-up Plan Please don't do drugs. Seek help if you have trouble abstaining KEYSHA GALLEGO MD Sep 27, 2018 12:26
--- NOTE | 2018-09-27 15:23 | CONS ---
Consult Date/Type/Reason Admit Date/Time Sep 18, 2018 at 12:38 Initial Consult Date 09/25/18 Type of Consultation: Pulm Requesting Provider: KEYSHA GALLEGO MD Date/Time of Note DATE: 09/27/18 TIME: 15:22 Subjective Doing well. No c/o. Objective Vitals Vital Signs Date Temp Pulse Resp B/P (MAP) Pulse Ox O2 O2 Flow FiO2 Time Delivery Rate 09/27/18 58 12:11 09/27/18 98.2 17 109/62 100 11:42 (78) 09/26/18 Room Air 15:11 09/24/18 21 19:52 09/24/18 2.0 03:04 Intake and Output 09/26/18 09/26/18 09/27/18 1515:00 23:00 07:00 IntakeIntake Total 400 ml 1800 ml 500 ml BalanceBalance 400 ml 1800 ml 500 ml Exam HEENT: Neck supple; no JVD; no LAD CVS: RRR, S1 and S2 CHEST: Clear ABD: Soft, NT, + BS EXT: No c/c/e Results/Medications Result Diagram: 09/25/18 0400 09/25/18 0400 Results 24 hrs Laboratory Tests Test 09/26/18 17:33 09/27/18 02:34 09/27/18 08:09 09/27/18 11:49 Bedside Glucose 82 109 113 126 Home Meds Discontinued Scripts Ondansetron (Ondansetron Odt) 4 Mg Tab.rapdis, 4 MG PO Q6H PRN for NAUSEA AND/OR VOMITING, #10 TAB Prov:PAULO LÓPEZ LOC[employer] SALES ASSOCIATE 11/14/16 Cephalexin* (Keflex*) 500 Mg Capsule, 500 MG PO QID for 10 Days, CAP Prov:APOLINAR MATOS DO 08/15/16 Sulfamethoxazole-Trimethoprim* (Bactrim* DS) 800-160 Mg Tab, 1 TAB PO BID for 10 Days, TAB Prov:APOLINAR MATOS DO 08/15/16 Prednisone (Prednisone) 50 Mg Tab, 50 MG PO DAILY, #5 TAB Prov:SHANTHI RICHARDS PA-C 10/18/15 Ibuprofen* (Ibuprofen*) 600 Mg Tablet, 600 MG PO Q6, #30 TAB Prov:SHANTHI RICHARDS PA-C 10/18/15 Cephalexin* (Cephalexin*) 500 Mg Capsule, 500 MG PO Q6, #28 CAP Prov:SHANTHI RICHARDS PA-C 10/18/15 Sulfamethoxazole-Trimethoprim* (Bactrim* DS) 800-160 Mg Tab, 1 TAB PO BID, #14 TAB Prov:SHANTHI RICHARDS PA-C 10/18/15 Medications Current Medications Ondansetron HCl (Zofran Inj) 4 mg Q6H PRN IV NAUSEA AND/OR VOMITING; Start 09/18/18 at 15:00 Piperacillin Sod/ Tazobactam Sod 100 ml @ 200 mls/hr Q8 IVPB Last administered on 09/27/18at 14:30; Admin Dose 200 MLS/HR; Start 09/18/18 at 14:44 Albuterol/ Ipratropium (Duoneb) 3 ml Q2H RESP THERAPY PRN HHN SHORTNESS OF BREATH; Start 09/24/18 at 10:30 Diagnostic Test (Pha) (Accu-Chek) 1 ea Q6 XX Last administered on 09/27/18at 11:53; Admin Dose 1 EA; Start 09/24/18 at 18:00 Multivitamins 10 ml/Thiamine HCl 100 mg/Folic Acid 1 mg/Sodium Chloride 1,011.2 ml @ 100 mls/ hr DAILY@09 IVPB Last administered on 09/27/18at 08:38; Admin Dose 100 MLS/HR; Start 09/24/18 at 19:00 Famotidine (Pepcid) 20 mg BID PO Last administered on 09/27/18at 08:35; Admin Dose 20 MG; Start 09/26/18 at 21:00 Assessment/Plan Assessment/Plan (Daily) IMP: 1. s/p CPA 2. s/p Resp Failure' 3. s/p Drug OD No new pulm recs DMITRIY PEMBERTON MD Sep 27, 2018 15:23
--- NOTE | 2018-09-27 16:52 | PN ---
Date/Time of Note Date/Time of Note DATE: 09/27/18 TIME: 16:51 Assessment/Plan VTE Prophylaxis Risk score (from Nsg)>0 risk: 1 SCD applied (from Nsg): Yes Pharmacological prophylaxis: heparin Lines/Catheters IV Catheter Type (from Nrsg): Peripheral IV Urinary Cath still in place: Yes Reason Cath still needed: urinary retention Assessment/Plan Hospital Course 43 yo male with overdose leading to cardiac arrest with ROSC, now s/p mechanical ventilation and breathing comfortable on RA - Seems to be back to baseline. Family to take him back to [facility] with them benedict orrow - Strep bactremia - > continue zoysn. TTE with normal EF and no vegetation - Drug cessation - PT/OT Result Diagram: 09/25/18 0400 09/25/18 0400 Results 24hrs Laboratory Tests Test 09/26/18 17:33 09/27/18 02:34 09/27/18 08:09 09/27/18 11:49 Bedside Glucose 82 109 113 126 Subjective 24 Hr Interval Summary Free Text/Dictation Back to baseline per family at bedside Admits to drug use prior to admission Sister says she will take him to her home in [facility] with her tomorrow Exam/Review of Systems Exam Vitals Vital Signs Date Temp Pulse Resp B/P (MAP) Pulse Ox O2 O2 Flow FiO2 Time Delivery Rate 09/27/18 57 16:19 09/27/18 98.1 16 107/63 95 16:04 (78) 09/26/18 Room Air 15:11 09/24/18 21 19:52 09/24/18 2.0 03:04 Intake and Output 09/26/18 09/26/18 09/27/18 1515:00 23:00 07:00 IntakeIntake Total 400 ml 1800 ml 500 ml BalanceBalance 400 ml 1800 ml 500 ml Results Results 24hrs Laboratory Tests Test 09/26/18 17:33 09/27/18 02:34 09/27/18 08:09 09/27/18 11:49 Bedside Glucose 82 109 113 126 Medications Medication Current Medications Ondansetron HCl (Zofran Inj) 4 mg Q6H PRN IV NAUSEA AND/OR VOMITING; Start 09/18/18 at 15:00 Piperacillin Sod/ Tazobactam Sod 100 ml @ 200 mls/hr Q8 IVPB Last administered on 09/27/18 14:30; Admin Dose 200 MLS/HR; Start 09/18/18 at 14:44 Albuterol/ Ipratropium (Duoneb) 3 ml Q2H RESP THERAPY PRN HHN SHORTNESS OF BR EATH; Start 09/24/18 at 10:30 Diagnostic Test (Pha) (Accu-Chek) 1 ea Q6 XX Last administered on 09/27/18 11:53; Admin Dose 1 EA; Start 09/24/18 at 18:00 Multivitamins 10 ml/Thiamine HCl 100 mg/Folic Acid 1 mg/Sodium Chloride 1,011.2 ml @ 100 mls/ hr DAILY@09 IVPB Last administered on 09/27/18 08:38; Admin Dose 100 MLS/HR; Start 09/24/18 at 19:00 Famotidine (Pepcid) 20 mg BID PO Last administered on 09/27/18 08:35; Admin Dose 20 MG; Start 09/26/18 at 21:00 KEYSHA GALLEGO MD Sep 27, 2018 16:52
[2018-09-28] VITALS: BP 103/65; PULSE 54; PULSE 55; RESP 18
[2018-09-28 04:00] VITALS: BP 121/54; PULSE 83; RESP 18
[2018-09-28] MEDS: PIPER-TAZO 3.375 GM IV (PMX) 100 ML IVPB SCH (05:59)
[2018-09-28] MEDS: ACCU-CHEK XX SCH ×2 (06:00)
[2018-09-28 07:49] VITALS: BP 129/59; RESP 17
[2018-09-28 08:00] VITALS: PULSE 51
[2018-09-28] MEDS: FAMOTIDINE 20 MG TAB PO SCH (08:23)
--- NOTE | 2018-09-28 10:02 | CONS ---
Assessment/Plan Assessment/Plan Hospital Course 43 yo M with hx of polysubstance abuse who presents comatose following a cardiac arrest... for which neurology is consulted. Now s/p TTM. s/p Extubation on 09/23 He is without evidence of significant hypoxic-ischemic cerebral injury.. CTH is unremarkable. P: [place] as able Limit sedating medications where possible Other medical management per primary Will sign off; please call w/ ?s Consultation Date/Type/Reason Admit Date/Time Sep 18, 2018 at 12:38 Type of Consult Neurology Reason for Consultation ams Requesting Provider: KEYSHA GALLEGO MD Date/Time of Note DATE: 09/28/18 TIME: 10:01 24 HR Interval Summary Free Text/Dictation Continues acute care Exam Vital Signs Vitals Vital Signs Date Temp Pulse Resp B/P (MAP) Pulse Ox O2 O2 Flow FiO2 Time Delivery Rate 09/28/18 51 08:00 09/28/18 98.1 17 129/59 100 07:49 (82) 09/26/18 Room Air 15:11 09/24/18 21 19:52 Intake and Output 09/27/18 09/27/18 09/28/18 1515:00 23:00 07:00 IntakeIntake Total 100 ml 800 ml BalanceBalance 100 ml 800 ml Exam Comprehensive completed; stable from prior DOT HENRY Sep 28, 2018 10:02
--- NOTE | 2018-09-28 12:15 | DS ---
Date/Time of Note Date/Time of Note DATE: 09/28/18 TIME: 12:13 Discharge Summary Admission/Discharge Info Admit Date/Time Sep 18, 2018 at 12:38 Discharge Date/Time Sep 28, 2018 at 10:44 Discharge Diagnosis Cardiac arrest Patient Condition: Stable Hospital Course 43 yo male with overdose leading to cardiac arrest with ROSC in the field Etiology of cardiac arrest was 2/2 drug overdose He underwent therapeutic hypothermia on arrival Following rewarming he was able to be extubated His mental status returned to baseline He was found to have strep bactremia and was treated with zoysn. TTE with normal EF and no vegetation His family took him to [place] to live with them at discharge He was highly encouraged to abstain from drug use Home Meds Discontinued Scripts Ondansetron (Ondansetron Odt) 4 Mg Tab.rapdis, 4 MG PO Q6H PRN for NAUSEA AND/OR VOMITING, #10 TAB Prov:PAULO LÓPEZ FIG BAR MACHINE OPERATOR 11/14/16 Cephalexin* (Keflex*) 500 Mg Capsule, 500 MG PO QID for 10 Days, CAP Prov:APOLINAR MATOS DO 08/15/16 Sulfamethoxazole-Trimethoprim* (Bactrim* DS) 800-160 Mg Tab, 1 TAB PO BID for 10 Days, TAB Prov:APOLINAR MATOS DO 08/15/16 Prednisone (Prednisone) 50 Mg Tab, 50 MG PO DAILY, #5 TAB Prov:SHANTHI RICHARDS PA-C 10/18/15 Ibuprofen* (Ibuprofen*) 600 Mg Tablet, 600 MG PO Q6, #30 TAB Prov:SHANTHI RICHARDS PA-C 10/18/15 Cephalexin* (Cephalexin*) 500 Mg Capsule, 500 MG PO Q6, #28 CAP Prov:SHANTHI RICHARDS PA-C 10/18/15 Sulfamethoxazole-Trimethoprim* (Bactrim* DS) 800-160 Mg Tab, 1 TAB PO BID, #14 TAB Prov:SHANTHI RICHARDS PA-C 10/18/15 Follow-up Plan Please don't do drugs. Seek help if you have trouble abstaining Primary Care Provider Pending Labs Laboratory Tests Test 09/27/18 17:11 09/27/18 17:55 09/27/18 18:21 09/27/18 20:56 Sodium Level 141 mmol/L (135-144 ) Potassium 3.7 Level mmol/L (3.5-5.1 ) Chloride Level 104 mmol/L (97-110) Carbon Dioxide 27 Level mmol/L (21-31) Anion Gap 10 (5-13) Blood Urea 10 mg/dl (7-20) Nitrogen Creatinine 0.71 mg/dl (0.61-1.2 4) Est Glomerular > 60 Filtrat mL/min (>60) Rate mL/min Glucose Level 98 mg/dl (70-220) Calcium Level 8.9 mg/dl (8.4-10.2 ) Iron Level 62 ug/dl (35-150) Total Iron 245 Binding ug/dl (241-421) Capacity Percent Iron 25 % Saturation SAT (22-52) Ferritin 81.9 ng/ml (17.9-464 .0) Bedside 113 99 Glucose mg/dL (70-220) mg/dL (70-220) White Blood 8.7 Count 10^3/ul (4.8-1 0.8) Red Blood 5.73 Count 10^6/ul (4.70- 6.10) Hemoglobin 13.2 g/dl (14.0-18. 0) Hematocrit 41.6 % (42.0-52.0) Mean 72.6 Corpuscular fl (82.0-101.0 Volume ) Mean 23.0 Corpuscular pg (29.0-33.0) Hemoglobin Mean 31.7 Corpuscular g/dl (32.0-37. Hemoglobin Conc 0) ent Red Cell 14.1 Distribution % (11.5-14.5) Width Platelet Count 330 10^3/UL (140-4 15) Mean Platelet 11.3 Volume fl (7.4-10.4) Immature 0.600 Granulocytes % % (0.001-0.429 ) Neutrophils % 53.7 % (39.0-77.0) Lymphocytes % 29.7 % (15.0-51.0) Monocytes % 10.7 % (0.0-11.0) Eosinophils % 5.2 % (0.0-7.0) Basophils % 0.1 % (0.0-2.0) Nucleated Red 0.0 Blood Cells % /100WBC (0.0-0 .0) Immature 0.050 Granulocytes # 10^3/ul (0.0-0 .031) Neutrophils # 4.7 10^3/ul (1.6-7 .5) Lymphocytes # 2.6 10^3/ul (0.8-2 .9) Monocytes # 0.9 10^3/ul (0.3-0 .9) Eosinophils # 0.5 10^3/ul (0.0-0 .5) Basophils # 0.0 10^3/ul (0.0-0 .1) Nucleated Red 0.0 Blood Cells # 10^3/ul (0.0-0 .0) Test 09/28/18 06:32 Bedside 103 Glucose mg/dL (70-220) KEYSHA GALLEGO MD Sep 28, 2018 12:15
--- NOTE | 2018-09-28 12:35 | CONS ---
Consult Date/Type/Reason Admit Date/Time Sep 18, 2018 at 12:38 Initial Consult Date 09/25/18 Type of Consultation: Pulm Requesting Provider: KEYSHA GALLEGO MD Date/Time of Note DATE: 09/28/18 TIME: 12:34 Subjective No events; no complaints. Being discharged at time of visit. Objective Vitals Vital Signs Date Temp Pulse Resp B/P (MAP) Pulse Ox O2 O2 Flow FiO2 Time Delivery Rate 09/28/18 51 08:00 09/28/18 98.1 17 129/59 100 07:49 (82) 09/26/18 Room Air 15:11 09/24/18 21 19:52 Intake and Output 09/27/18 09/27/18 09/28/18 1515:00 23:00 07:00 IntakeIntake Total 100 ml 800 ml BalanceBalance 100 ml 800 ml Exam HEENT: Neck supple; no JVD; no LAD CVS: RRR, S1 and S2 CHEST: Clear ABD: Soft, NT, + BS EXT: No c/c/e Results/Medications Result Diagram: 09/27/18 1821 09/27/18 1711 Results 24 hrs Laboratory Tests Test 09/27/18 17:11 09/27/18 17:55 09/27/18 18:21 09/27/18 20:56 Sodium Level 141 Potassium Level 3.7 Chloride Level 104 Carbon Dioxide Level 27 Anion Gap 10 Blood Urea Nitrogen 10 Creatinine 0.71 Est Glomerular Filtrat > 60 Rate mL/min Glucose Level 98 Calcium Level 8.9 Iron Level 62 Total Iron Binding 245 Capacity Percent Iron Saturation 25 Ferritin 81.9 Bedside Glucose 113 99 White Blood Count 8.7 Red Blood Count 5.73 Hemoglobin 13.2 L Hematocrit 41.6 L Mean Corpuscular Volume 72.6 L Mean Corpuscular 23.0 L Hemoglobin Mean Corpuscular 31.7 L Hemoglobin Concent Red Cell Distribution 14.1 Width Platelet Count 330 # Mean Platelet Volume 11.3 H Immature Granulocytes % 0.600 H Neutrophils % 53.7 Lymphocytes % 29.7 Monocytes % 10.7 Eosinophils % 5.2 Basophils % 0.1 Nucleated Red Blood 0.0 Cells % Immature Granulocytes # 0.050 H Neutrophils # 4.7 Lymphocytes # 2.6 Monocytes # 0.9 Eosinophils # 0.5 Basophils # 0.0 Nucleated Red Blood 0.0 Cells # Test 09/28/18 06:32 Bedside Glucose 103 Home Meds Discontinued Scripts Ondansetron (Ondansetron Odt) 4 Mg Tab.rapdis, 4 MG PO Q6H PRN for NAUSEA AND/OR VOMITING, #10 TAB Prov:MARIBEL,PAULO Nomi DRAFTER PATENT 11/14/16 Cephalexin* (Keflex*) 500 Mg Capsule, 500 MG PO QID for 10 Days, CAP Prov:APOLINAR MATOS DO 08/15/16 Sulfamethoxazole-Trimethoprim* (Bactrim* DS) 800-160 Mg Tab, 1 TAB PO BID for 10 Days, TAB Prov:APOLINAR MATOS DO 08/15/16 Prednisone (Prednisone) 50 Mg Tab, 50 MG PO DAILY, #5 TAB Prov:SHANTHI RICHARDS PA-C 10/18/15 Ibuprofen* (Ibuprofen*) 600 Mg Tablet, 600 MG PO Q6, #30 TAB Prov:SHANTHI RICHARDS PA-C 10/18/15 Cephalexin* (Cephalexin*) 500 Mg Capsule, 500 MG PO Q6, #28 CAP Prov:SHANTHI RICHARDS PA-C 10/18/15 Sulfamethoxazole-Trimethoprim* (Bactrim* DS) 800-160 Mg Tab, 1 TAB PO BID, #14 TAB Prov:SHANTHI RICHARDS PA-C 10/18/15 Assessment/Plan Assessment/Plan (Daily) D/C as per PMD Needs to seek drug rehab and abstain from further drug abuse. DMITRIY PEMBERTON MD Sep 28, 2018 12:35
== END 2018-09-28 10:44 | disposition home or self-care (01) | DRG 917 ==
LOC: E/R 11:00 → EDBD 11:00 → ICU 12:38 → MERGE 12:38 → TEL 09-25 23:41
PROVIDERS: ADMIT Family Medicine; ATTEND Internal Medicine
PROC: 5A1955Z Respiratory Ventilation, Greater than 96 Consecutive Hours (ICD-10-PCS; principal; 2018-09-18)
PROC: 06HY33Z Insertion of Infusion Device into Lower Vein, Percutaneous Approach (ICD-10-PCS; 2018-09-18)
PROC: 0CJS8ZZ Inspection of Larynx, Via Natural or Artificial Opening Endoscopic (ICD-10-PCS; 2018-09-18)
DX: T40.2X1A Poisoning by other opioids, accidental (unintentional), initial encounter (principal); R57.0 Cardiogenic shock; J96.01 Acute respiratory failure with hypoxia; G92 Toxic encephalopathy; R65.11 Systemic inflammatory response syndrome (SIRS) of non-infectious origin with acute organ dysfunction; I46.8 Cardiac arrest due to other underlying condition; R40.20 Unspecified coma; J69.0 Pneumonitis due to inhalation of food and vomit; M62.82 Rhabdomyolysis; E87.2 Acidosis; R78.81 Bacteremia; T43.621A Poisoning by amphetamines, accidental (unintentional), initial encounter; T42.4X1A Poisoning by benzodiazepines, accidental (unintentional), initial encounter; T40.7X1A Poisoning by cannabis (derivatives), accidental (unintentional), initial encounter; D64.9 Anemia, unspecified; D69.6 Thrombocytopenia, unspecified; J45.909 Unspecified asthma, uncomplicated; R73.9 Hyperglycemia, unspecified
CPT/HCPCS: 36415; 36600; 70450; 71045; 80048; 80053; 80202; 80307; 81001; 82140; 82150; 82550; 82553; 82728; 82803; 82962; 83540; 83605; 83690; 83735; 84100; 84484; 85025; 85384; 85610; 85730; 86850; 86900; 86901; 87081; 87086; 92610; 93005; 93306; 93922; 94002; 94003; 94640; 94770; 96365; 96375; 97116; 97163; 97530; C9113; J0461; J0692; J1630; J1815; J2060; J2175; J2250; J2543; J2920; J3010; J3370; J3411; J3480; J7030; J7040; J7042; J7050